=== PATIENT | male | born 1960 | race Caucasian/White ===

== ENCOUNTER 2016-07-13 07:28 | Inpatient (IN) ==
[~2016-07-13 07:28] MED LIST: DIAZEPAM 5 MG TABLET PO ONE; MAGNESIUM SULF RIDER 2 GM in PREMIX 1 EACH IV PRN; POTASSIUM CHLORIDE RIDER 10 MEQ in PREMIX 1 EACH IV PRN; diphenhydrAMINE CAP 25 MG CAPSULE PO ONE
[2016-07-13 08:55] LABS: Basophils % 0.1 % (0.0-0.8); Eosinophils % 0.1 % (0.00-10.9); Hematocrit 28.3 VOL% (42.0-52.0); Hemoglobin 8.2 GM/DL (14.0-18.0); Immature Granulocytes Absolute 1.33 #; Lymphocytes # 1.5 10*3/uL (1.4-4.0); Lymphocytes % 8.9 % (21.2-54.2); Mean Corpuscular Hemoglobin 24 PG (27-34); Mean Corpuscular Volume 82.5 FL (87-102); Mean Platelet Volume 10.1 FL (9.6-12.0); Monocytes # 1.7 10*3/uL (0.11-0.8); Monocytes % 9.9 % (1.7-12.7); NRBC # 0.16 10*3/uL; Neutrophils # 12.2 10*3/uL (1.4-7.4); Platelet Count 302 T/CUMM (130-400); Red Blood Count 3.43 MC/CUMM (3.8-5.5); Red Cell Distribution Width 17.3 % (9.3-17.3); White Blood Count 16.7 T/CUMM (4-12)
[2016-07-13] MEDS ORDERED: diphenhydrAMINE CAP 25 MG CAPSULE ONE (09:12)
[2016-07-13] MEDS ORDERED: DIAZEPAM 5 MG TABLET ONE (09:12)
[2016-07-13] MEDS ORDERED: ASPIRIN 325 MG TABLET ONE (09:12)
[2016-07-13 09:14] LABS: Band Neutrophils 3 % (0-10); Elliptocytes Few; Hypochromasia 1+; Lymphocytes 11 % (20-55); Microcytosis 1+; Platelet Estimate Adequate; Segmented Neutrophils 81 % (50-85); Total Cells Counted 100
[2016-07-13] MEDS: SODIUM CHLORIDE 0.45% 1,000 ML IV SCH ×3 (09:14→22:39)
--- NOTE | 2016-07-13 09:18 | XRay Report ---
Portable chest. Indication: Dyspnea. Shortness of breath. Comparison: October 10, 2015. The heart is enlarged. The pulmonary vasculature is normal. There is no consolidation, pneumothorax, or pleural effusion. Prominent degenerative changes are seen at each shoulder. Degenerative changes are also noted within the spinal column. Impression: Stable cardiomegaly. No acute abnormality. PROCEDURE INTERPRETED AT [facility] DEPARTMENT OF RADIOLOGY Final Report Signed by: Dr. Gabbie Gallego
[2016-07-13 09:22] LABS: Calcium 8.5 MG/DL (8.5-10.1); Magnesium 2.4 MG/DL (1.8-2.4); Osmolality,Calculated 295.3 MOS/KG (273-304); Potassium 3.6 MMOL/L (3.5-5.1)
--- NOTE | 2016-07-13 09:41 | EKG Report ---
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
[2016-07-13] MEDS ORDERED: NITROGLYCERIN SL 0.4 MG TABLET SL PRN (09:46)
--- NOTE | 2016-07-13 09:51 | Event Note ---
Mr. Mcdonald came today with progressive dyspnea. He was unable to afford outpatient nuclear stress test due to lack of insurance he has known coronary artery disease with previous PCI to LAD. He states exactly like he felt before he had his last PCI. I recommended further workup as an outpatient but he felt that it was not cost effective for him. I recommended based on these findings that we proceed with left heart catheterization selective coronary angiography and possible percutaneous coronary mention. The patient presents for further evaluation the Sas Administrator labs were drawn here his hemoglobin is 8.2 with microcytic indices. He has a history of erosive gastritis and gastric antral ulcers. I recommend that this microcytic hypochromic anemia be addressed before we proceed with any possible left heart catheterization. If we find disease would require dual antiplatelet therapy. We must know the source of his anemia and the risk of possible PCI before proceeding. Dr. Fan has previously performed upper endoscopy on him I think the patient did not follow- up for colonoscopy. I discussed with Dr. Fan and he will see in the hospital. I will admit to regular bed and consult GI. The patient is n.p.o. anticipate EGD today. Please see my H&P from last office visit. The patient has rheumatoid arthritis previously diagnosed and takes quite a few steroids. He also takes some intermittent nonsteroidals.
--- NOTE | 2016-07-13 12:41 | Gastrointestinal Consult Note ---
<Maryann Cummings - Last Filed: 07/13/16 12:34> Assessment and Plan (1) Anemia Status: Acute Assessment and plan: 07/13-Presentation of SOB, weakness x several weeks with prior hx of anemia/ transfusion and hx of PUD in past. Last EGD with antral gastric ulcers, erosive esophagitis. Hgb 8.2 without overt bleeding. Proceed with EGD today to further evaluate. Plan and addendum to follow by Dr Fan. Current Visit: Yes History of Present Illness Chief complaint: Anemia History of present illness: Mr. Mcdonald is a 55 year old male who presented to the hospital today for an outpatient left heart catherization due to ongoing weakness and SOB. Pt states that for the last several weeks he has had progressively worse SOB with and without activity. He also states his energy level is down and he has had increased fatigue. He has a history of cardiac stent placement two years ago and was seen by Dr Chiang. Due to lack of insurance, he could not afford outpatient stress test and was brought in today for a heart cath due to his history of stenting of his LAD. He related his current symptoms to what led up to his stent placement. On arrival today, he was found to have hemoglobin of 8.2. He has a history of PUD and gastritis in the past as well as anemia which he has taken iron supplements for off and on. He has not noted any other GI symptoms including melena, hematochezia, weight loss, nausea, vomiting, or abdominal pain. He does take 4 BC or Goody powders every day and has done this for a long period of time. He has GERD symptoms as well. He was seen in September of last year with anemia and had EGD with erosive esophagitis, gastric antral ulcers and small hiatal hernia. Colonoscopy recomendations were given however pt did not follow back up. He presented with hemoglobin of 6 at that time and was transfused. He has a history of RA and takes steroids for this at times. He is currently not on any anticoagulation. Home Medications Medication Instructions Recorded Confirmed Type Tramadol HCl [Tramadol Tab] 100 mg PO TID 04/28/15 07/13/16 History Carvedilol [Coreg] 12.5 mg PO BID #60 tablet 05/06/15 07/13/16 Rx HYDROcodone/ACETAMIN 10-325 [[place] 1 tablet PO Q4H PRN 06/04/15 07/13/16 History 10-325] Lisinopril 20 mg PO DAILY 06/04/15 07/13/16 History Aspirin EC Tab 81 mg PO DAILY #30 tablet 06/05/15 07/13/16 Rx Nitroglycerin [Nitroglycerin SL 0.4 mg SL Q5M PRN #25 tablet 06/05/15 07/13/16 Rx Tab] Aspirin/Acetaminophen/Caffeine 1 each PO QID PRN 07/13/16 07/13/16 History [Goody's Ex-Str Powder Packet] Allergies Allergy/AdvReac Type Severity Reaction Status Date / Time No Known Allergies Allergy Verified 07/13/16 08:40 Medical,Surgical,& Family Hx - Medical History Cardio: History of: CHF, Hypertension (noncompliant 2 years) Neurology: History of: Migraine (States does not have anymore) No history of: Seizures Endocrine: No history of: Diabetes Mellitus (IDDM), Diabetes Mellitus (NIDDM), Thyroid Disorder Rheumatology: History of;: Rheumatoid Arthritis Respiratory: No history of: COPD Genitourinary: No history of: Kidney Stones Gastrointestinal: History of: GI Problems (omental infarction 2010 requiring right hemicolectomy) Other: History of: Skin Problems (left upper chest lesion) - Surgical History Cardiac Surgeries: Sugical HX of: Cardiac Catheterization (stent x 1) Thoracic Surgeries: Patient denies;: Lobectomy Neurologic Surgeries: Patient denies: Neurologic Surgery HEENT Surgeries: Surgical HX of: Eye Surgery (Glass removed from Rt eye), Tonsilectomy & Adenoidectomy Abdominal Surgeries: Surgical HX of: Abdominal Surgery (right hemicolectomy), Appendectomy, Cholecystectomy, Colonoscopy Orthopedic Surgeries: Surgical HX of;: Orthopedic Surgery (rotator cuff bilat) - Family History Family History: Reports;: Family Cancer (father pancreatic), Family Stroke ( grandmother) - Social History Smoking Status: Former smoker Frequency of Alcohol Use: None Type of Drug Use: None 12 point system: reviewed and no additional remarkable complaints except as stated - Constitutional Constitutional: Present: as per HPI, fatigue, weakness - EENT Eyes: Present: as per HPI Ears: Present: as per HPI Nose, mouth and throat: Present: as per HPI - Cardiovascular Cardiovascular: Present: as per HPI - Respiratory Respiratory: Present: as per HPI, dyspnea - Gastrointestinal Gastrointestinal: Present: as per HPI - Genitourinary Genitourinary: Present: as per HPI - Musculoskeletal Musculoskeletal: Present: as per HPI - Neurological Neurological: Present: as per HPI - Psychiatric Psychiatric: Present: as per HPI - Endocrine Endocrine: Present: as per HPI - Hematologic/Lymphatic Hematologic/Lymphatic: Present: as per HPI Exam - Constitutional Vitals: Period Temp Pulse Resp BP Sys/French Pulse Ox Last 24 Hr 97.4 F 72-85 16-17 107-180/87-88 95-99 General appearance: no acute distress, over weight - Head Head exam: Present: normal inspection, normocephalic - Eye Eye exam: Present: other (lids and conjunctiva unremarkable). Absent: scleral icterus - ENT ENT exam: Present: normal exam, normal oropharynx - Neck Neck exam: Present: normal inspection - Respiratory Respiratory exam: Present: clear to auscultation bilaterally. Absent: rales, rhonchi, wheezes - Cardiovascular Cardiovascular exam: Present: regular rate and rhythm. Absent: diastolic murmur , JVD, systolic murmur - GI/Abdominal GI/Abdominal exam: Present: normal bowel sounds, soft. Absent: ascites, distended, mass, organomegaly, tenderness - Extremities Exam Extremities exam: Present: normal inspection, full ROM - Back Exam Back exam: Present: normal inspection - Neurological Exam Neurological exam: Present: alert, oriented X3 - Psychiatric Psychiatric exam: Present: normal affect, normal mood - Skin Skin exam: Present: normal color, warm, dry Results - Labs CBC & BMP: 07/13/16 08:48 07/13/16 08:48 Lab Results: I have reviewed the past 24 hour labs <Elie Fan - Last Filed: 07/13/16 13:23> History of Present Illness History of present illness: Mr. Mcdonald is a 55 year old male Exam - Constitutional Vitals: Period Temp Pulse Resp BP Sys/French Pulse Ox Last 24 Hr 97.4 F 72- 16- 107-180/79-88 95-99 Results - Labs CBC & BMP: 07/13/16 08:48 07/13/16 08:48
[2016-07-13] MEDS ORDERED: PROPOFOL 200 MG/20 ML VIAL IV ONE (13:15)
[2016-07-13] MEDS ORDERED: LIDOCAINE 2% 5 ML VIAL ONE (13:15)
--- NOTE | 2016-07-13 13:34 | Operative Note ---
Date of procedure: 07/13/16 Pre-op diagnosis: Symptomatic anemia, history of gastric ulcers Procedure: Procedure: Esophagogastroduodenoscopy Brief clinical abstract: Patient is a 55-year-old male with history of gastric ulcers and EGD in 10/12 felt to be related to aspirin/nonsteroidal use. He is admitted today with symptomatic anemia with hemoglobin 8.2. He has noted no gross GI bleeding. He continues to use Goody powders daily for arthritic pain. His weight is stable. He denies abdominal pain or nausea. Indication for procedure: Symptomatic anemia, history of gastric ulcers Endoscopic findings:[After informed consent was obtained, the patient was placed in the left lateral decubitus position. The gastroscope was inserted in the upper esophagus under direct vision with no resistance encountered. Esophageal mucosa appeared normal with squamocolumnar junction sharply demarcated above a small hiatal hernia. The endoscope was advanced in the stomach which was carefully examined including retroflexed view of the cardia and fundus with no abnormality seen. The pyloric channel was patent but with a keyhole deformity probably related to previous ulcer disease. Just beyond the pylorus anteriorly in the bulb there was a fairly deep approximately 1.5 cm diameter white based ulcer noted. No visible vessel was associated with this. A photo was taken as shown below. Remainder of the duodenal bulb as well as second and third portion of the duodenum appeared normal. The endoscope was withdrawn and patient appeared to tolerate the procedure well. Impression: #1 small hiatal hernia #2 duodenal bulb ulcer-appearance would suggest low risk of active bleeding Recommendations: Agree with plan for transfusion 2 units packed red blood cells today given symptomatic anemia. Patient needs to discontinue aspirin/ nonsteroidal use. Continue PPI therapy for now. Check stool antigen for H. pylori and treat if positive. Would also plan colonoscopy while he is here as he says it has been over 10 years since his last exam. Anesthesia: MAC Surgeon / Physician: Elie Fan Estimated blood loss: none Specimens: none sent Condition: stable Disposition: post procedure unit Results - Labs CBC & BMP: 07/13/16 08:48 07/13/16 08:48 Discharge Plan - Discharge Medications No Action Tramadol HCl [Tramadol Tab] 100 mg PO TID Carvedilol [Coreg] 12.5 mg PO BID #60 tablet HYDROcodone/ACETAMIN 10-325 [[place] 10-325] 1 tablet PO Q4H PRN PRN Reason: Pain Lisinopril 20 mg PO DAILY Aspirin EC Tab 81 mg PO DAILY #30 tablet Nitroglycerin [Nitroglycerin SL Tab] 0.4 mg SL Q5M PRN #25 tablet PRN Reason: Chest Pain Aspirin/Acetaminophen/Caffeine [Vance's Ex-Str Powder Packet] 1 each PO QID PRN PRN Reason: Pain - Follow Up or Referral - Forms/Instructions
--- NOTE | 2016-07-13 13:35 | Anesthesia ---
Anesthesia Post OP - Post Ansesthetic Evaluation Patient seen in post op: Yes Resp: within normal limits CV: within normal limits Mental: within normal limits Temp: within normal limits [id number]: within normal limits Nausea and Vomiting: within normal limits Pain: within normal limits
[2016-07-13] MEDS ORDERED: SODIUM CHLORIDE 0.9% 250 ML IV PRN (14:36)
[2016-07-13] MEDS: traMADol 50 MG TABLET PO SCH ×2 (17:16→20:57)
[2016-07-13] MEDS: FERROUS SULFATE 325 MG TABLET PO SCH ×2 (17:16→20:58)
[2016-07-13] MEDS ORDERED: POLYETHYLENE GLYCOL POWDER 255 GM BOTTLE PO ONE (18:00)
[2016-07-13] MEDS: CARVEDILOL 12.5 MG TABLET PO SCH (20:57)
[2016-07-13] MEDS: PANTOPRAZOLE 40 MG TABLET PO SCH (20:58)
[2016-07-14 05:06] LABS: Basophils % 0.1 % (0.0-0.8); Eosinophils % 0.4 % (0.00-10.9); Hematocrit 31.9 VOL% (42.0-52.0); Hemoglobin 9.6 GM/DL (14.0-18.0); Immature Granulocytes % 8.2 %; Lymphocytes # 1.5 10*3/uL (1.4-4.0); Lymphocytes % 17.4 % (21.2-54.2); Mean Corpuscular HGB Conc 30.1 GM/DL (32-36); Mean Corpuscular Hemoglobin 25 PG (27-34); Mean Corpuscular Volume 81.4 FL (87-102); Mean Platelet Volume 10.9 FL (9.6-12.0); Monocytes # 0.9 10*3/uL (0.11-0.8); Monocytes % 10.8 % (1.7-12.7); NRBC # 0.11 10*3/uL; Neutrophils # 5.4 10*3/uL (1.4-7.4); Neutrophils % 63.1 % (38.7-73.9); Platelet Count 284 T/CUMM (130-400); Red Blood Count 3.92 MC/CUMM (3.8-5.5); Red Cell Distribution Width 16.9 % (9.3-17.3); White Blood Count 8.5 T/CUMM (4-12)
[2016-07-14 05:33] LABS: Band Neutrophils 2 % (0-10); Hypochromasia 2+; Lymphocytes 16 % (20-55); Microcytosis 1+; Nucleated Red Blood Cells 1 (0-5); Ovalocytes Few; Segmented Neutrophils 75 % (50-85); Total Cells Counted 100
[2016-07-14 05:34] LABS: Platelet Estimate Adequate; Tear Drop Cells Slight
[2016-07-14] MEDS: SODIUM CHLORIDE 0.45% 1,000 ML IV SCH ×3 (05:54→18:17)
[2016-07-14] MEDS ORDERED: MAGNESIUM CITRATE 300 ML BOTTLE PO ONE (06:00)
[2016-07-14] MEDS: traMADol 50 MG TABLET PO SCH ×3 (08:36→20:54)
[2016-07-14] MEDS: FERROUS SULFATE 325 MG TABLET PO SCH ×3 (08:36→20:54)
[2016-07-14] MEDS: PANTOPRAZOLE 40 MG TABLET PO SCH ×2 (08:36→21:20)
[2016-07-14] MEDS: ASPIRIN EC 81 MG TABLET PO SCH (08:36)
[2016-07-14] MEDS: CARVEDILOL 12.5 MG TABLET PO SCH ×2 (09:06→20:55)
[2016-07-14] MEDS: LISINOPRIL 10 MG TABLET PO SCH (09:06)
[2016-07-14] MEDS ORDERED: POLYETHYLENE GLYCOL POWDER 255 GM BOTTLE PO ONE (12:00)
--- NOTE | 2016-07-14 13:07 | Gastrointestinal Progress Note ---
<Maryann Cummings - Last Filed: 07/14/16 13:05> Assessment and Plan (1) Anemia Status: Acute Assessment and plan: 07/14-EGD findings noted. Hgb 9.6. NO overt bleeding. Colonoscopy reschedule to tomorrow due to poor prep. Plan and addendum to follow by Dr Fan. 07/13-Presentation of SOB, weakness x several weeks with prior hx of anemia/ transfusion and hx of PUD in past. Last EGD with antral gastric ulcers, erosive esophagitis. Hgb 8.2 without overt bleeding. Proceed with EGD today to further evaluate. Plan and addendum to follow by Dr Fan. Current Visit: Yes Gastroenterology - PN: Subj Interval history: CC: Anemia Pt is seen, awake, alert, was to have colonscope today however his prep was not adequate. Pt decided this morning he did not want to proceed due to was tired of clear liquids and wanted to go home. Discussed with pt that we could do this as outpatient but he would have to restart the prep again at home and be on clear liquids for this then. After much discussion, pt decided he will go ahead and continue the prep today and proceed with colonoscopy on tomorrow. Hemoglobin stable at 9.6 today without overt bleeding. Abdomen is soft, nontender. ROS: Denies SOB or chest pain Exam (Progress Note) - Constitutional Vitals: Period Temp Pulse Resp BP Sys/French Pulse Ox Last 24 Hr 97.7 F-98.9 F 66-88 16-20 125-179/68-106 91-99 - Other Additional findings: General appearance: no acute distress, over weight - Head Head exam: Present: normal inspection, normocephalic - Eye Eye exam: Present: other (lids and conjunctiva unremarkable). Absent: scleral icterus - ENT ENT exam: Present: normal exam, normal oropharynx - Neck Neck exam: Present: normal inspection - Respiratory Respiratory exam: Present: clear to auscultation bilaterally. Absent: rales, rhonchi, wheezes - Cardiovascular Cardiovascular exam: Present: regular rate and rhythm. Absent: diastolic murmur , JVD, systolic murmur - GI/Abdominal GI/Abdominal exam: Present: normal bowel sounds, soft. Absent: ascites, distended, mass, organomegaly, tenderness - Extremities Exam Extremities exam: Present: normal inspection, full ROM - Back Exam Back exam: Present: normal inspection - Neurological Exam Neurological exam: Present: alert, oriented X3 - Psychiatric Psychiatric exam: Present: normal affect, normal mood - Skin Skin exam: Present: normal color, warm, dry Results - Labs CBC & BMP: 07/14/16 03:41 07/13/16 08:48 Lab Results: I have reviewed the past 24 hour labs <Elie Fan - Last Filed: 07/14/16 13:44> Exam (Progress Note) - Constitutional Vitals: Period Temp Pulse Resp BP Sys/French Pulse Ox Last 24 Hr 97.7 F-98.9 F 66-88 16-20 125-179/79-106 91-99 Results - Labs CBC & BMP: 07/14/16 03:41 07/13/16 08:48
--- NOTE | 2016-07-14 18:12 | Cardiology Progress Note ---
Lane Lacy Vanessa, RN, am scribing for, and in the presence of, Shan Shields MD 18:12. Assessment and Plan - Time spent with patient Time spent with patient: Less than 30 minutes (1) Anemia Status: Acute Assessment and plan: 1. 55-year-old with uncontrolled hypertension, known CAD status post coronary stent about a year ago followed by Dr. Hermosillo presented with microcytic anemia in 6 months dyspnea on exertion and fatigue 2. GI workup in progress; colonoscopy tomorrow 3. No gross bleeding 4. Decrease IV fluids to one half normal saline at 75 mL per hour given his hypertension Current Visit: Yes (2) Shortness of breath Status: Acute Current Visit: Yes (3) Coronary artery disease Status: Chronic Current Visit: No (4) Uncontrolled hypertension Status: Resolved Current Visit: No Cardiology - PN: Subj Interval history: Patient of Dr. Chiang's admitted yesterday for outpatient left cardiac cath due to increasing shortness of breath over a few weeks and weakness. Known coronary disease with previous PCI to LAD, and he stated his current discomforts were exactly the same to what he felt prior to last PCI. 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 With history of erosive gastritis and gastric ulcers, left heart cath was cancelled for further GI evaluation to address his anemia and find source prior to possible PCI and use of DAPT. EGD per Dr. Fan yesterday afternoon and duodenal ulcer found with no bleeding. He was transfused with 2 units PRBC's afterward, and today's H/H is 9.6 & 31.9. Was scheduled for colonoscopy today but has been rescheduled for tomorrow due to bowel prep not being clear yet. Afebrile. Hypertensive with SBP 150-180 mmHg , heart rate 70's and regular. No chest pain or shortness of breath at rest. Unsure of dyspnea on exertion as he has not ambulated a long distance. Only complaint is that he is "really tired." Exam (Progress Note) - Constitutional Vitals: Period Temp Pulse Resp BP Sys/French Pulse Ox Last 24 Hr 97.7 F-98.9 F 66-84 18-20 138-179/79-106 91-99 General appearance: no acute distress, over weight - Head Head exam: Absent: abrasion, contusion, hematoma - Eye Eye exam: Absent: periorbital swelling Pupils: Present: MICHAEL. Absent: dilated, fixed - Neck Neck exam: Absent: tenderness - Respiratory Respiratory exam: Present: clear to auscultation bilaterally. Absent: rales, rhonchi, stridor, wheezes - Cardiovascular Cardiovascular exam: Present: regular rate and rhythm. Absent: bradycardia, JVD , systolic murmur, tachycardia - GI/Abdominal GI/Abdominal exam: Present: normal bowel sounds, soft. Absent: ascites, distended, firm, tenderness - Extremities Exam Extremities exam: Present: normal capillary refill, full ROM. Absent: calf tenderness, edema - Back Exam Back exam: Present: normal inspection - Neurological Exam Neurological exam: Present: alert, oriented X3 - Psychiatric Psychiatric exam: Present: normal affect, normal mood - Skin Skin exam: Present: warm, dry, intact. Absent: abrasion, cyanosis, diaphoretic Result/EKG - Labs CBC & BMP: 07/14/16 03:41 07/13/16 08:48 Lab Results: I have reviewed the past 24 hour labs Labs: Laboratory Results - last 24 hr 07/13/16 07/14/16 Unknown 03:41 WBC 8.5 D RBC 3.92 Hgb 9.6 L Hct 31.9 L MCV 81.4 L MCH 25 L MCHC 30.1 L RDW 16.9 Plt Count 284 MPV 10.9 Neut % (Auto) 63.1 Lymph % (Auto) 17.4 L Powell % (Auto) 10.8 Eos % (Auto) 0.4 Baso % (Auto) 0.1 Neut # (Auto) 5.4 Lymph # (Auto) 1.5 Powell # (Auto) 0.9 H Eos # (Auto) 0.0 Baso # (Auto) 0.0 Total Counted 100 Immature Gran % 8.2 Nucleated RBC % 1.3 Immature Gran # 0.70 Segmented Neutrophils 75 Band Neutrophils 2 Lymphocytes 16 L Monocytes 7 Nucleated RBCs 1 Nucleated RBCs # 0.11 Platelet Estimate Adequate Hypochromasia 2+ Microcytosis 1+ Tear Drop Cells Slight Ovalocytes Few Blood Type A POSITIVE Antibody Screen Negative Crossmatch See Detail - EKG EKG results: interpreted by me EKG shows: sinus rhythm Cornelius Layc Randall Scott, MD, personally performed the services described in this documentation, ascribed by Tori Sherman RN in my presence, and it is both accurate and complete .
[2016-07-15] MEDS: FERROUS SULFATE 325 MG TABLET PO SCH ×3 (08:19→20:32)
[2016-07-15] MEDS: PANTOPRAZOLE 40 MG TABLET PO SCH ×2 (08:19→20:32)
[2016-07-15] MEDS: SODIUM CHLORIDE 0.45% 1,000 ML IV SCH ×2 (08:19→21:05)
[2016-07-15] MEDS: ASPIRIN EC 81 MG TABLET PO SCH (08:19)
[2016-07-15] MEDS: traMADol 50 MG TABLET PO SCH ×3 (08:20→20:33)
[2016-07-15] MEDS: LISINOPRIL 10 MG TABLET PO SCH (08:46)
[2016-07-15] MEDS: CARVEDILOL 12.5 MG TABLET PO SCH ×2 (08:47→20:31)
[2016-07-15] MEDS ORDERED: LIDOCAINE 2% 5 ML VIAL ONE (12:15)
[2016-07-15] MEDS ORDERED: PROPOFOL 200 MG/20 ML VIAL IV ONE (12:15)
--- NOTE | 2016-07-15 13:01 | History and Physical Update ---
History and Physical Update - History and Physical H&P was reviewed, the patient examined and there: are no changes in the patients condition since last H&P was completed. - Physical Exam Mental Status: alert and oriented Heart: regular rate and rhythm Lung: clear to auscultation Abdomen: within normal limits Vitals: within normal limits
--- NOTE | 2016-07-15 13:04 | Anesthesia ---
Anesthesia Post OP - Post Ansesthetic Evaluation Patient seen in post op: Yes Resp: within normal limits CV: within normal limits Mental: within normal limits Temp: within normal limits [id number]: within normal limits Nausea and Vomiting: within normal limits Pain: within normal limits
--- NOTE | 2016-07-15 13:08 | Operative Note ---
Date of procedure: 07/15/16 Pre-op diagnosis: Blood in stool, colon cancer screening Procedure: Procedure note: Colonoscopy with snare polypectomy and biopsy of colon polyps Physician: Dr. Valdemar Fan Brief clinical abstract: Patient is a 55-year-old male recently noted to have symptomatic anemia with occult blood in his stool. He had a duodenal bulb ulcer noted at upper endoscopy earlier this week. He has not had colonoscopy in over 10 years. He denies any colonic symptoms. Endoscopic findings: After informed consent was obtained, the patient was placed in the left lateral decubitus position. Digital rectal exam was performed with no palpable abnormalities felt. Pediatric videocolonoscope was inserted into the rectum and advanced to the cecum without difficulty. Retroflex view within the cecum was performed back to the level of the hepatic flexure. The endoscope was advanced back to the cecum and on withdrawal colonic mucosa was carefully examined. Bowel prep was of good quality. Withdrawal time was over 6 minutes duration. On withdrawal, near the mid transverse colon and extending into the descending colon numerous polyps were noted estimated to be at least 50 in number. These range in size from 3 mm to 8 mm diameter estimated. 7 or 8 of the larger polyps were removed with snare using coagulation current. Multiple biopsies were also obtained of other polyps using cold biopsy forceps. On withdrawal a few diverticuli were noted in the left colon. The endoscope was withdrawn in the rectum with retroflex view showing small internal hemorrhoids. The endoscope was removed and he appeared to tolerate the procedure well. Impression: #1 extensive colonic polyposis #2 mild diverticulosis Plan: Follow-up pathology from above to determine next step in management. Anesthesia: MAC Surgeon / Physician: Elie Fan Estimated blood loss: minimal Specimens: other (colon polyps) Condition: stable Disposition: post procedure unit Results - Labs CBC & BMP: 07/14/16 03:41 07/13/16 08:48 Discharge Plan - Discharge Medications No Action Tramadol HCl [Tramadol Tab] 100 mg PO TID Carvedilol [Coreg] 12.5 mg PO BID #60 tablet HYDROcodone/ACETAMIN 10-325 [[place] 10-325] 1 tablet PO Q4H PRN PRN Reason: Pain Lisinopril 20 mg PO DAILY Aspirin EC Tab 81 mg PO DAILY #30 tablet Nitroglycerin [Nitroglycerin SL Tab] 0.4 mg SL Q5M PRN #25 tablet PRN Reason: Chest Pain Aspirin/Acetaminophen/Caffeine [Vance's Ex-Str Powder Packet] 1 each PO QID PRN PRN Reason: Pain - Follow Up or Referral - Forms/Instructions
--- NOTE | 2016-07-15 19:26 | Discharge Summary ---
Hospital Course - Hospital Course Hospital Course: Mr. Mcdonald was admitted for 6 months of fatigue and dyspnea on exertion with microcytic anemia. He had EGD initially by Dr. Fan which showed significant duodenal ulcer with clean base and no active bleeding. Colonoscopy was performed today which showed many colonic polyps. It appears that H. pylori antibody biopsy and colonic reports are pending at this time. The patient was told to go home this evening, and is very anxious to do so. A minimal difficulty is anxious for discharge. Diagnosis - Discharge Diagnosis (1) Anemia Status: Acute (2) Shortness of breath Status: Acute (3) Coronary artery disease Status: Chronic (4) Uncontrolled hypertension Status: Resolved Specialty Discharge - Follow Up or Referrals Follow up with: Elie Fan MD [Physician] - 2 Weeks Kimberly Chiang DO [Physician] - 1 Month Discharge Plan - Discharge Medications No Action Tramadol HCl [Tramadol Tab] 100 mg PO TID Carvedilol [Coreg] 12.5 mg PO BID #60 tablet HYDROcodone/ACETAMIN 10-325 [[place] 10-325] 1 tablet PO Q4H PRN PRN Reason: Pain Lisinopril 20 mg PO DAILY Aspirin EC Tab 81 mg PO DAILY #30 tablet Nitroglycerin [Nitroglycerin SL Tab] 0.4 mg SL Q5M PRN #25 tablet PRN Reason: Chest Pain Aspirin/Acetaminophen/Caffeine [Goody's Ex-Str Powder Packet] 1 each PO QID PRN PRN Reason: Pain - Follow Up or Referral - Forms/Instructions Exam - Constitutional Vitals: Period Temp Pulse Resp BP Sys/French Pulse Ox Last 24 Hr 98.2 F-98.7 F 65-94 14-20 112-179/62-95 95-100 General appearance: no acute distress, over weight - Head Head exam: Present: normal inspection, normocephalic, atraumatic - Neck Neck exam: Present: normal inspection - Respiratory Respiratory exam: Present: clear to auscultation bilaterally. Absent: wheezes - Cardiovascular Cardiovascular exam: Present: regular rate and rhythm. Absent: diastolic murmur , rubs - GI/Abdominal GI/Abdominal exam: Present: soft. Absent: tenderness - Extremities Exam Extremities exam: Absent: edema Discharge Results Procedures and tests throughout hospitalization: Pending Orders 07/13/16 01:08 Helicobacter pylori Ag Feces Routine DS: Provider Date of admission: 07/13/16 09:45 Primary care physician: . No PCP Attending physician on admission: Kimberly Chiang DO Consults: 07/13/16 09:46 Consult to Physician [CONS] Routine Comment: anemia as we discussed Consulting Provider: Elie Fan Consulting Provider Notified: Yes When should Consulting Provider be notified: Now Person Notified: connie james Date Notified: 07/13/16 Time Notified: 11:17 Discharging clinician: Shan Cárdenas
[2016-07-15 23:26] VITALS: BP 147/92
--- NOTE | 2016-07-16 10:49 | Pathology Report from [facility] ---
ACCESSION # : [id number] PATIENT NAME : Jasson Mcdonald ORDERING DR : SANDRA FERREIRA MD CLINICAL HX: Positive stools POST-OP DX: Colon polyps SPECIMEN INFO: Colon polyps transverse GROSS DESCRIPTION: The specimen is received in formalin labeled with the patient 's name Jasson Mcdonald consists of multiple fragments of red gomes polypoid tissue measuring 1 x 0.6 cm. Submitted in one cassette. DIAGNOSIS FOR JASSON MCDONALD: COLON POLYPS TRANSVERSE: Tubular adenomas. SERVICE DATE: 07/16/2016 REPORT DATE: 07/16/2016 PATHOLOGIST: Triny Medley M.D. [facility]ITAL[facility]rach[facility]
== END 2016-07-15 21:25 | disposition home or self-care (01) | DRG 384 ==
LOC: N.CL 07:28 → N.3E 09:45
PROVIDERS: ADMIT Internal Medicine Cardiovascular Disease; ATTEND Internal Medicine Cardiovascular Disease

== ENCOUNTER 2016-12-28 09:30 | Inpatient (IN) ==
[~2016-12-28 09:30] MED LIST changes: +ACETAMINOPHEN 325 MG TABLET PO PRN; -DIAZEPAM 5 MG TABLET PO ONE; -MAGNESIUM SULF RIDER 2 GM in PREMIX 1 EACH IV PRN; -POTASSIUM CHLORIDE RIDER 10 MEQ in PREMIX 1 EACH IV PRN; +ZALEPLON 5 MG CAPSULE PO PRN; -diphenhydrAMINE CAP 25 MG CAPSULE PO ONE; +diphenhydrAMINE CAP 25 MG CAPSULE PO PRN
[2016-12-28 10:49] LABS: Basophils % 0.1 % (0.0-0.8); Hemoglobin 11.7 GM/DL (14.0-18.0); Immature Granulocytes % 4.7 %; Immature Granulocytes Absolute 0.72 #; Lymphocytes # 0.7 10*3/uL (1.4-4.0); Lymphocytes % 4.3 % (21.2-54.2); Mean Corpuscular HGB Conc 32.5 GM/DL (32-36); Mean Corpuscular Hemoglobin 29 PG (27-34); Monocytes # 1.1 10*3/uL (0.11-0.8); Monocytes % 6.9 % (1.7-12.7); NRBC # 0.67 10*3/uL; Platelet Count 366 T/CUMM (130-400); White Blood Count 15.5 T/CUMM (4-12)
[2016-12-28 11:22] LABS: Band Neutrophils 1 % (0-10); Hypochromasia 2+; Lymphocytes 10 % (20-55); Microcytosis 1+; Nucleated Red Blood Cells 2 (0-5); Platelet Estimate Adequate; Segmented Neutrophils 82 % (50-85); Target Cells Slight; Total Cells Counted 100
[2016-12-28 11:36] LABS: Albumin 3.4 G/DL (3.4-5.0); Bilirubin,Total 0.7 MG/DL (0.2-1.0); Calcium 8.8 MG/DL (8.5-10.1); Magnesium 2.5 MG/DL (1.8-2.4); Osmolality,Calculated 288.4 MOS/KG (273-304); Potassium 4.2 MMOL/L (3.5-5.1); Thyroid Stimulating Hormone 0.239 uIU/ml (0.358-3.74); Total Protein 6.2 G/DL (6.4-8.3)
[2016-12-28] MEDS: ENOXAPARIN 40 MG/0.4 ML SYRINGE SUBCUT SCH (12:09)
[2016-12-28] MEDS ORDERED: NITROGLYCERIN SL 0.4 MG TABLET SL PRN (12:11)
--- NOTE | 2016-12-28 12:15 | XRay Report ---
2 view chest. Indication: Shortness of breath. Comparison: July 13, 2016. The heart is enlarged. The pulmonary vasculature is normal. The right lung demonstrates mild infiltrate or atelectasis at the base medially. There is blunting of the left costophrenic angle which is new, and probably represents a small amount of pleural effusion. Previous vertebral at multiple levels. Impression: Mild infiltrate versus atelectasis at the right lung base. Small left pleural effusion. Follow-up recommended. PROCEDURE INTERPRETED AT [facility] DEPARTMENT OF RADIOLOGY Final Report Signed by: Dr. Gabbie Gallego
[2016-12-28] MEDS ORDERED: CARVEDILOL 12.5 MG TABLET PO SCH (12:30)
[2016-12-28] MEDS ORDERED: ASPIRIN EC 325 MG TABLET PO SCH (12:35)
[2016-12-28] MEDS ORDERED: ENOXAPARIN 60 MG/0.6 ML SYRINGE SUBCUT ONE (13:00)
[2016-12-28 13:34] LABS: Troponin I Only 0.208 NG/ML (0.00-0.045)
--- NOTE | 2016-12-28 13:35 | EKG Report ---
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
--- NOTE | 2016-12-28 13:39 | Ultrasound Report ---
US venous doppler LE BI Indication: Lower extremity swelling and pain. Comparison: None. Technique: Using a transcutaneous probe, grayscale, spectral Doppler, and color Doppler images of the bilateral lower extremity venous structures were captured and stored. Grayscale images prior to and following compression were obtained. Interrogated venous structures include the bilateral common femoral vein, superficial femoral vein (proximal, mid, and distal), and popliteal vein. Findings: There is no evidence of thrombus within the interrogated venous structures. the interrogated venous segments demonstrate presence of both color flow and spectral flow. Impression: 1. No evidence of venous thrombosis. 12/28/2016 1:36 PM PROCEDURE INTERPRETED AT [facility] DEPARTMENT OF RADIOLOGY Final Report Signed by: Dr. Jesus Mata
[2016-12-28] MEDS ORDERED: DIAZEPAM 5 MG TABLET PO ONE (14:00)
[2016-12-28] MEDS ORDERED: MAGNESIUM SULF RIDER 2 GM in PREMIX 1 EACH IV PRN (14:00)
[2016-12-28] MEDS ORDERED: diphenhydrAMINE CAP 25 MG CAPSULE PO ONE (14:00)
[2016-12-28 14:16] LABS: INR 1.1; PT Patient Result 11.3 SECS
--- NOTE | 2016-12-28 14:16 | Cardiology History & Physical ---
Assessment and Plan - Time spent with patient Time spent with patient: Greater than 30 minutes (1) Dyslipidemia Status: Chronic Assessment and plan: SEE PLAN OF CARE LISTED BELOW Current Visit: Yes (2) Suspected sleep apnea Status: Chronic Assessment and plan: SEE PLAN OF CARE LISTED BELOW Current Visit: Yes (3) Abnormal chest x-ray Status: Acute Assessment and plan: SEE PLAN OF CARE LISTED BELOW Current Visit: Yes (4) Edema Status: Acute Assessment and plan: SEE PLAN OF CARE LISTED BELOW Current Visit: Yes (5) Congestive heart failure Status: Acute Assessment and plan: SEE PLAN OF CARE LISTED BELOW Current Visit: No Qualifiers: Congestive heart failure type: unspecified congestive heart failure type Congestive heart failure chronicity: acute Qualified Code(s): I50.9 - Heart failure, unspecified (6) Elevated troponin Status: Acute Assessment and plan: SEE PLAN OF CARE LISTED BELOW Current Visit: No (7) Coronary artery disease Status: Chronic Assessment and plan: SEE PLAN OF CARE LISTED BELOW Current Visit: No Qualifiers: Coronary Disease-Associated Artery/Lesion type: mohegan artery [place] vs. 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 Mcdonald, 56WM, has risk factors significant for: Known coronary artery disease (status post PCI to proximal and mid LAD June 04, 2015) hypertension, dyslipidemia and obesity. History of ischemic cardiomyopathy with prior EF noted to be 50%. Patient was a "working" by Dr. Servin at [facility] this morning for worsening shortness of breath. After being seen in clinic, patient was directly admitted for concerns of significant dyspnea on exertion. Patient reports for the past 6 months he has had shortness of breath with exertion. However, over the past 1 week, he has found it difficult to take 3 steps into his home without having a rest due to shortness of breath. He does have occasional tightness associated with the shortness of breath but not usually. Rest relieves the discomfort. States the discomfort is similar to what he had prior to requiring stents in May 2015. He has also noticed mild swelling of his right lower extremity over the past week. When he was last seen in clinic, noted to be in sinus tachycardia with a heart rate of 130s and hypertensive. He has been out of his antihypertensives for approximately 3 weeks. He was directly admitted to our telemetry unit. He has had some orthopnea over the past week and it is mildly better at this time. He believes he can lie flat for any procedure needed. Cardiac biomarkers have just now returned. Troponin is elevated at 0.28, proBNP 1800. Venous ultrasound of right lower extremity negative for DVT. He has received aspirin and therapeutic dosing of Lovenox, beta-blockade, nitrates , diuretics. Patient has now undergone echocardiogram (results pending but suspect decreased EF). Chest x-ray reveals a small infiltrate and pleural effusion, WBC 15K. He is afebrile and denies chills or cough. I have discussed patient's case with Dr. Servin and Dr. Lowe. Patient is agreeable to undergo elective cardiac catheterization this afternoon. ASSESSMENT/PLAN: 1. SOB - multifactorial to include acute CHF, possible CAP, suspected obstructive sleep apnea, cardiomyopathy 2. KNOWN CAD - status post PCI to the proximal and mid LAD May 2015 3. HYPERTENSION - suboptimally controlled at this time. He has been given a beta-coretta. We are holding his MARY ELLEN inhibitor for possibility of cardiac catheterization today 4. DYSLIPIDEMIA -FLP in the morning. Statin this evening 5. EDEMA RLE - venous ultrasound bilateral lower extremity reveals no evidence of DVT 6. ELEVATED TROPONIN -troponin elevated. Continue to cycle cardiac biomarkers. NPO for heart cath this afternoon 7. CARDIOMYOPATHY - history of ischemic cardiomyopathy, EF 50%. Echocardiogram is also pending but suspect his EF may be decreased. 8. POSSIBLE CAP - we will treat with antibiotics accordingly, pulmonary toilet. Home Medications Medication Instructions Recorded Confirmed Type Tramadol HCl [Tramadol Tab] 100 mg PO TID 04/28/15 12/28/16 History Carvedilol [Coreg] 12.5 mg PO BID #60 tablet 05/06/15 12/28/16 Rx HYDROcodone/ACETAMIN 10-325 [[place] 1 tablet PO Q4H PRN 06/04/15 12/28/16 History 10-325] Lisinopril 20 mg PO DAILY 06/04/15 12/28/16 History Nitroglycerin [Nitroglycerin SL 0.4 mg SL Q5M PRN #25 tablet 06/05/15 12/28/16 Rx Tab] Allergies Allergy/AdvReac Type Severity Reaction Status Date / Time No Known Allergies Allergy Verified 07/13/16 08:40 Review of systems: REVIEW OF SYSTEMS: - Constitutional Constitutional: Present: Fatigue. Absent: syncope, anorexia, night sweats - EENT Eyes: Absent: blurry vision, loss of vision, diplopia Ears: Absent: decreased hearing, ear pain, ear discharge - Cardiovascular Cardiovascular: Present: chest tightness with exertion, dyspnea on exertion, edema. Denies palpitations. Absent: chest pain with deep breath, claudication - Respiratory Respiratory: Present: SUMNER, denies cough. Absent: wheezing, hemoptysis, change in phlegm color - Gastrointestinal Gastrointestinal: Denies: constipation. Absent: abdominal pain, hematemesis, hematochezia, melena, change in bowel habits, nausea - Genitourinary Genitourinary: Absent: difficulty urinating, dysuria, urinary hesitancy, flank pain - Musculoskeletal Musculoskeletal: Present: back pain Absent: joint swelling, muscle cramps, muscle weakness - Neurological Neurological: Present: normal gait without frequent falls. Absent: dizziness, hemiparesis - Psychiatric Psychiatric: Absent: anxiety, depression, difficulty concentrating - Endocrine Endocrine: Present: fatigue. Absent: cold intolerance, heat intolerance, polyuria, polyphagia, polydipsia - Hematologic/Lymphatic Hematologic/Lymphatic: Present: easy bruising. Absent: easy bleeding -Integumentary Integumentary: Absent: lesions, rashes, skin breakdown Medical,Surgical,& Family Hx - Medical History Cardio: History of: CHF, CAD, Hypertension (noncompliant 2 years) No history of: AR Neurology: History of: Migraine (States does not have anymore) No history of: Seizures Endocrine: No history of: Diabetes Mellitus (IDDM), Diabetes Mellitus (NIDDM), Thyroid Disorder Rheumatology: History of;: Rheumatoid Arthritis Respiratory: No history of: COPD Genitourinary: No history of: Kidney Stones Gastrointestinal: History of: GERD, GI Problems (omental infarction 2011 requiring right hemicolectomy) Musculoskeletal: History of: Back/Neck Problems Other: History of: Skin Problems (left upper chest lesion) - Surgical History Cardiac Surgeries: Sugical HX of: Cardiac Catheterization (stent x 1) Thoracic Surgeries: Patient denies;: Lobectomy Neurologic Surgeries: Patient denies: Neurologic Surgery HEENT Surgeries: Surgical HX of: Eye Surgery (Glass removed from Rt eye), Tonsilectomy & Adenoidectomy Abdominal Surgeries: Surgical HX of: Abdominal Surgery (right hemicolectomy), Appendectomy, Cholecystectomy, Colonoscopy Orthopedic Surgeries: Surgical HX of;: Orthopedic Surgery (rotator cuff bilat), Spinal Surgery (Kyphoplasty) - Family History Family History: Reports;: Family Cancer (father pancreatic), Family Stroke ( grandmother) - Social History Smoking Status: Former smoker Have you smoked in the last 12 months: No Frequency of Alcohol Use: None Type of Drug Use: None Functional capacity: independent ambulation Cardiology Physical Exam - Constitutional Vitals: Vital Signs Temp Pulse Resp BP Pulse Ox 97.6 F 114 H 20 158/118 96 12/28/16 11:52 12/28/16 11:52 12/28/16 11:52 12/28/16 11:52 12/28/16 11:52 Intake and Output 12/27/16 12/28/16 12/28/16 23:59 07:59 15:59 Other: Weight 86.636 kg Patient Weight 12/28/16 23:59 Weight 86.636 kg Exam: General: [Appears well with no apparent distress.] [Pleasant and cooperative. ] [Appears comfortable.] HEENT: [PERRL, normocephalic, atraumatic. Mucous membranes moist. No jaundice noted. Conjunctiva moist and clear, sclerae anicteric] Neck: Difficult to assess for JVD due to habitus. No thyromegaly or lymphadenopathy noted. No carotid bruit appreciated Cardiac: [Fast rate, regular rhythm. No obvious murmur rub or gallop appreciated. Lungs: [Clear to auscultation without accessory muscle use to assist the respiratory pattern.] Oxygen in use via nasal cannula Abdomen: Soft, bowel sounds normoactive. Nontender and nondistended. No abdominal bruit or thrill noted. No masses noted. Musculoskeletal: No fluid collection. Decreased range of motion is noted. Extremities: No clubbing, cyanosis noted. [Right lower extremity calf area 1+ edema. ] Upper extremity pulses 2+. Lower extremity pulses 2+. Capillary refill less than 3 seconds. Skin: No unusual lesions or rashes. No skin breakdown appreciated. Neuro: Awake, alert and oriented 3. Moves all extremities well without hemiparesis or paralysis. No essential tremor is appreciated. Result/EKG - Labs CBC & BMP: 12/28/16 10:29 12/28/16 10:29 Lab Results: I have reviewed the past 24 hour labs Labs: Laboratory Results - last 24 hr 12/28/16 12/28/16 12/28/16 10:29 10:29 10:29 WBC 15.5 H RBC 4.00 Hgb 11.7 L Hct 36.0 L MCV 90.0 MCH 29 MCHC 32.5 RDW 17.0 Plt Count 366 MPV 11.0 Neut % (Auto) 84.0 H Lymph % (Auto) 4.3 L [place] % (Auto) 6.9 Eos % (Auto) 0.0 Baso % (Auto) 0.1 Neut # (Auto) 13.0 H Lymph # (Auto) 0.7 L [place] # (Auto) 1.1 H Eos # (Auto) 0.0 Baso # (Auto) 0.0 Total Counted 100 Immature Gran % 4.7 Nucleated RBC % 4.3 Immature Gran # 0.72 Segmented Neutrophils 82 Band Neutrophils 1 Lymphocytes 10 L Monocytes 7 Nucleated RBCs 2 Nucleated RBCs # 0.67 Platelet Estimate Adequate Immature Plt Fraction 0.0 Hypochromasia 2+ Microcytosis 1+ Target Cells Slight D-Dimer, Quantitative Sodium 140 Potassium 4.2 Chloride 105 Carbon Dioxide 25 Anion Gap 14.2 BUN 37 H Creatinine 1.30 GFR Calculation 69 BUN/Creatinine Ratio 28.00 H Glucose 113 H Calculated Osmolality 288.4 Calcium 8.8 Magnesium 2.5 H Total Bilirubin 0.70 AST 32 ALT 66 H Alkaline Phosphatase 98 Total Creatine Kinase CK-MB (CK-2) Troponin I B-Natriuretic Peptide 1706 H Total Protein 6.2 L Albumin 3.4 Globulin 2.8 Albumin/Globulin Ratio 1.2 Free T4 TSH 3rd Generation 0.239 L 12/28/16 12/28/16 12/28/16 12:33 12:33 12:34 WBC RBC Hgb Hct MCV MCH MCHC RDW Plt Count MPV Neut % (Auto) Lymph % (Auto) [place] % (Auto) Eos % (Auto) Baso % (Auto) Neut # (Auto) Lymph # (Auto) [place] # (Auto) Eos # (Auto) Baso # (Auto) Total Counted Immature Gran % Nucleated RBC % Immature Gran # Segmented Neutrophils Band Neutrophils Lymphocytes Monocytes Nucleated RBCs Nucleated RBCs # Platelet Estimate Immature Plt Fraction Hypochromasia Microcytosis Target Cells D-Dimer, Quantitative 0.7 Sodium Potassium Chloride Carbon Dioxide Anion Gap BUN Creatinine GFR Calculation BUN/Creatinine Ratio Glucose Calculated Osmolality Calcium Magnesium Total Bilirubin AST ALT Alkaline Phosphatase Total Creatine Kinase 76 CK-MB (CK-2) 2.4 Troponin I 0.208 H B-Natriuretic Peptide Total Protein Albumin Globulin Albumin/Globulin Ratio Free T4 0.94 TSH 3rd Generation - Diagnostic Findings Procedure: Chest x-ray: report reviewed by me - EKG EKG results: interpreted by me EKG shows: tachycardia
[2016-12-28] MEDS ORDERED: HEPARIN/NACL 0.9% 2 UNITS/ML 1,000 ML IV ONE (14:23)
[2016-12-28] MEDS ORDERED: fentaNYL 100 MCG/2 ML VIAL ONE (14:49)
[2016-12-28] MEDS ORDERED: MIDAZOLAM 2 MG/2 ML VIAL ONE (14:49)
[2016-12-28] MEDS ORDERED: LIDOCAINE 1%/EPI INJ 20 ML VIAL ONE (15:11)
--- NOTE | 2016-12-28 15:18 | History and Physical Update ---
Sedation H&P Update - History and Physical H&P was reviewed, the patient examined and there: are no changes in the patients condition since last H&P was completed. - Sedation Plan for Sedation: moderate Patient Consent: Procedure disscussed with patient and patinet has consented., Risks and benefits were discussed with patient,including infection,, bleeding, injury to surrounding structures, seizure, temporary nerve, Patient understands and accepts potential risks/benefits and agrees to, proceed. ASA Class: III Airway Assessment: Class III: Soft palate, base of uvula visible
--- NOTE | 2016-12-28 15:57 | Cardiac Catheterization ---
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 He has not had any significant chest pain symptoms but has been complaining of worsening dyspnea and some orthopnea. He is for diagnostic evaluation and intervention if indicated Procedures performed: Left heart catheterization Coronary arteriography Left ventriculography [Right] femoral sheath angiography Mynx closure femoral arteriotomy site After obtaining informed consent the patient was brought to the catheterization lab where the [right] groin was prepped and draped in the usual sterile manner. After intravenous sedation and local anesthesia a needle stick was made to the right femoral artery and a [6 [place] sheath] was positioned without difficulty. A left heart catheterization was undertaken using first a Amanda left diagnostic catheter. The catheter was advanced under fluoroscopy over a guidewire and positioned with its tip in the ostium of the left main coronary artery. Multiple angiograms were obtained of the left coronary artery in multiple views. After adequate angiogram to left coronary obtain this catheter was withdrawn and an AMRM right coronary catheter was advanced over a guidewire under fluoroscopic control where angiography of the right coronary artery was undertaken in multiple views. After adequate angiograms of the right coronary artery were obtained this catheter was withdrawn. A pigtail ventriculographic catheter was advanced over a guidewire under fluoroscopic control to the ascending aorta where it was advanced across the aortic valve and intraventricular hemodynamics were measured. A ventriculogram was obtained in the GUEVARA projection and afterward a pullback was obtained from the ventricle to the aorta under hemodynamic monitoring and removed. At this point the patient underwent right femoral sheath angiography which demonstrated anatomy appropriate for Mynx closure. This was performed without difficulty and good hemostasis was obtained. The patient then was transferred back to the [facility] having suffered no significant immediate complications. Hemodynamics: Please see the accompanying data sheet Coronary arteriography: Left coronary artery: The left main coronary artery is well-developed and free of significant obstructing lesions. The circumflex coronary is a large nondominant vessel with possesses no significant lesions to its course. The branches of the circumflex likewise are free of significant obstructing lesions. The left anterior descending coronary artery is a large vessel that extends around the apex of the ventricle. The LAD has a stents just beyond the takeoff of a large first diagonal branch. The stents are widely patent and there is no disease of the diagonal ostium. The other branches of the LAD have no significant lesions through their course. Right coronary artery: The right coronary artery is large vessel that is dominant and is free of significant obstructing lesions. The PDA and posterolateral branches likewise are free of significant obstructing lesions. Left ventriculography: After injection of contrast into the left ventricle was noted to be enlarged and poorly contractile with diffuse severe left ventricular hypokinesis and an ejection fraction in the 20% range. Mitral and aortic structures appear normal by ventriculography. Right femoral sheath angiography: After injection of contrast into the right femoral arterial sheath it is noted be of normal caliber and enters above the bifurcation. The distal iliac, common femoral and bifurcation appear to be free of significant obstructing lesions based on this limited angiographic study. Conclusions: Angiographically no evidence of significant fixed coronary obstruction. Cardiomyopathy ejection fraction in the 20% range End diastolic pressure 26 mmHg Discussion and recommendations: Patient presents with dyspnea and has now got evidence of a nonischemic cardiomyopathy by LV gram. He was on appropriate medications and these will be intensified as tolerated. We will begin diuresis to see if we get his EDP down to the 18 range. Our findings have been reviewed with the patient and with Dr. Hermosillo. Surgeon / Physician: Neymar Lowe Estimated blood loss: minimal Specimens: none sent Condition: stable - Medications / Follow-up
[2016-12-28] MEDS: LISINOPRIL 20 MG TABLET PO SCH (17:15)
[2016-12-28] MEDS: traMADol 50 MG TABLET PO SCH ×2 (17:15→22:06)
[2016-12-28] MEDS: LEVOFLOXACIN INJ 500 MG in PREMIX 1 EACH IV SCH (17:17)
[2016-12-28] MEDS: FUROSEMIDE 40 MG/4 ML VIAL IV SCH (17:17)
[2016-12-28 18:27] LABS: Troponin I Only 0.236 NG/ML (0.00-0.045)
[2016-12-28] MEDS: NITROGLYCERIN 2% OINT 1 INCH/GM PACK TOP SCH ×2 (18:59→19:00)
[2016-12-28 19:18] LABS: Apearance,Urine CLEAR (Clear); Bilirubin,Urine Negative (Negative); Blood, Urine Negative (Negative); Glucose,Urine (UA) Negative (Negative); Hyaline Casts,Urine 26 /LPF (0-3); Ketones,Urine Negative (Negative); Mucus,Urine Occasional /LPF (Occasional); Nitrite,Urine Negative (Negative); Protein,Urine Negative; RBC,Urine 2 /HPF (0-4); Urine Color Yellow (Yellow); Urine Specific Gravity 1.036 (1.001-1.035); Urine Urobilinogen < 2.0 EU/DL (0.2-1.0); WBC,Urine 1 /HPF (0-6)
[2016-12-28 19:58] LABS: Barbiturates Screen,Urine Negative (Negative); Benzodiazepines Screen,Urine Positive (Negative); Cannabinoid Screen,Urine Negative (Negative); Opiate Screen,Urine Positive (Negative); Phencyclidine Screen,Urine Negative (Negative)
--- NOTE | 2016-12-28 20:50 | ECHO Report ---
Jasson Mcdonald Exam Date: 12/28/2016 13:36 Referring Physician: Technologist: constantine Don ARDMS, RVT Age: 56 Ht (in): 67 Wt (lb): 191 Gender: M Exam Location: [facility] Echo Indications: Shortness of breath, CAD, Pruritic condition, Gastritis, Hiatal hernia, Iron deficiecency, Lumbar rediculopathy BP: 158 / 118 HR: 116 Rhythm: Sinus Technical Quality: Fair IMPRESSIONS Severely reduced LV systolic function with regional wall motion as described below, ejection fraction 20%. Diastolic parameters cannot be well determined due to underlying arrhythmia. Mild left ventricular hypertrophy. Mild to moderate left atrial enlargement. Moderate mitral regurgitation. Mild to moderate tricuspid regurgitation. Pulmonary hypertension with pulmonary artery pressure estimated at 62 mmHg. MEASUREMENTS (Male / Female) Normal Values 2D ECHO LV Diastolic Diameter PLAX 5.2 cm 4.2 - 5.9 / 3.9 - 5.3 cm LV Systolic Diameter PLAX 5.6 cm LV Fractional Shortening PLAX -8.5 % IVS Diastolic Thickness 1.0 cm 0.6 - 1.0 / 0.6 - 0.9 cm LVPW Diastolic Thickness 1.2 cm 0.6 - 1.0 / 0.6 - 0.9 cm RV Internal Dim ED PLAX 4.5 cm LA Systolic Diameter LX 5.6 cm 3.0 - 4.0 / 2.7 - 3.8 cm DOPPLER TR Peak Velocity 360.0 cm/s TR Peak Gradient 51.8 mmHg FINDINGS Left Ventricle Normal left ventricular cavity size. Normal left ventricular wall thickness. Left ventricular ejection fraction is estimated at 20%. There is global hypokinesis, although the apex and inferior wall appear to be akinetic. Right Ventricle Moderately dilated Right Atrium The right atrium is normal in size. Left Atrium Mildly to moderately enlarged Mitral Valve Morphologically normal mitral valve. Moderate mitral valve regurgitation. Aortic Valve Morphologically normal aortic valve without significant sclerosis or stenosis. There is no aortic regurgitation. Tricuspid Valve Morphologically normal tricuspid valve. [id number] tricuspid valve regurgitation. Tricuspid regurgitation velocities suggest a PAP of 62 mmHg. Pulmonic Valve Morphologically normal pulmonic valve without significant stenosis. There is no pulmonic regurgitation. Pericardium Normal pericardium without effusion. Aorta Normal ascending aorta dimension. Myrna Dominguez MD (Electronically Signed) Final Date: 28 December 2016 20:49
[2016-12-28] MEDS ORDERED: ROSUVASTATIN 10 MG TABLET PO SCH (21:00)
[2016-12-28] MEDS ORDERED: SIMVASTATIN 40 MG TABLET PO SCH (21:00)
[2016-12-28] MEDS: CARVEDILOL 12.5 MG TABLET PO SCH (22:07)
[2016-12-28 23:21] LABS: Troponin I Only 0.223 NG/ML (0.00-0.045)
[2016-12-29] MEDS: NITROGLYCERIN 2% OINT 1 INCH/GM PACK TOP SCH ×2 (00:33→06:04)
[2016-12-29 05:18] LABS: Basophils % 0.1 % (0.0-0.8); Hematocrit 31.9 VOL% (42.0-52.0); Hemoglobin 10.4 GM/DL (14.0-18.0); Immature Granulocytes % 5.3 %; Immature Granulocytes Absolute 0.45 #; Lymphocytes # 1.7 10*3/uL (1.4-4.0); Lymphocytes % 19.8 % (21.2-54.2); Mean Corpuscular HGB Conc 32.6 GM/DL (32-36); Mean Corpuscular Hemoglobin 30 PG (27-34); Mean Corpuscular Volume 90.4 FL (87-102); Mean Platelet Volume 12.1 FL (9.6-12.0); Monocytes # 0.4 10*3/uL (0.11-0.8); Monocytes % 4.6 % (1.7-12.7); NRBC # 0.33 10*3/uL; Neutrophils # 5.9 10*3/uL (1.4-7.4); Neutrophils % 70.2 % (38.7-73.9); Platelet Count 244 T/CUMM (130-400); Red Blood Count 3.53 MC/CUMM (3.8-5.5); White Blood Count 8.4 T/CUMM (4-12)
[2016-12-29 05:56] LABS: Calcium 7.9 MG/DL (8.5-10.1); Magnesium 2.4 MG/DL (1.8-2.4); Osmolality,Calculated 288.1 MOS/KG (273-304); Potassium 3.5 MMOL/L (3.5-5.1)
[2016-12-29 06:16] LABS: Band Neutrophils 1 % (0-10); Hypochromasia 1+; Lymphocytes 11 % (20-55); Nucleated Red Blood Cells 6 (0-5); Platelet Estimate Adequate; Segmented Neutrophils 79 % (50-85); Total Cells Counted 100
[2016-12-29 06:17] LABS: Giant Platelets Few; Microcytosis 1+; Risk Ratio 6.54; VLDL CHOLESTEROL 109.8 MG/DL
[2016-12-29 07:28] LABS: Troponin I Only 0.209 NG/ML (0.00-0.045)
--- NOTE | 2016-12-29 07:50 | EKG Report ---
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
[2016-12-29] MEDS: traMADol 50 MG TABLET PO SCH ×3 (08:34→21:13)
[2016-12-29] MEDS: PANTOPRAZOLE 40 MG TABLET PO SCH (08:34)
[2016-12-29] MEDS: ASPIRIN EC 81 MG TABLET PO SCH (08:34)
[2016-12-29] MEDS: CARVEDILOL 12.5 MG TABLET PO SCH (08:34)
[2016-12-29] MEDS: LISINOPRIL 20 MG TABLET PO SCH (08:34)
[2016-12-29] MEDS: FUROSEMIDE 40 MG/4 ML VIAL IV SCH (08:35)
--- NOTE | 2016-12-29 11:26 | Cardiology Progress Note ---
<Michelle Maria E - Last Filed: 12/29/16 11:26> Assessment and Plan - Time spent with patient Time spent with patient: Greater than 30 minutes (1) Dyslipidemia Status: Chronic Assessment and plan: SEE PLAN OF CARE LISTED BELOW Current Visit: Yes (2) Suspected sleep apnea Status: Chronic Assessment and plan: SEE PLAN OF CARE LISTED BELOW Current Visit: Yes (3) Abnormal chest x-ray Status: Acute Assessment and plan: SEE PLAN OF CARE LISTED BELOW Current Visit: Yes (4) Edema Status: Resolved Assessment and plan: SEE PLAN OF CARE LISTED BELOW Current Visit: Yes Qualifiers: Edema type: unspecified Qualified Code(s): R60.9 - Edema, unspecified (5) Congestive heart failure Status: Acute Assessment and plan: SEE PLAN OF CARE LISTED BELOW Current Visit: No Qualifiers: Congestive heart failure type: systolic Congestive heart failure chronicity : acute Qualified Code(s): I50.21 - Acute systolic (congestive) heart failure (6) Elevated troponin Status: Resolved Assessment and plan: SEE PLAN OF CARE LISTED BELOW Current Visit: No (7) Coronary artery disease Status: Chronic Assessment and plan: SEE PLAN OF CARE LISTED BELOW Current Visit: No Qualifiers: Coronary Disease-Associated Artery/Lesion type: [place] artery [place] vs. 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 SERVIN SUMMARY: Mr. Mcdonald, 56WM, was directly admitted from cardiology clinic for severe SUMNER, concerning for angina. History of known coronary artery disease ( status post PCI to proximal and mid LAD June 04, 2015) hypertension, dyslipidemia and obesity. Prior history of EF noted to be 50%. Underwent elective cardiac catheterization, performed by Dr. Lowe. Identified was the following: Conclusions: Angiographically no evidence of significant fixed coronary obstruction. Cardiomyopathy ejection fraction in the 20% range End diastolic pressure 26 mmHg Discussion and recommendations: Patient presents with dyspnea and has now got evidence of a nonischemic cardiomyopathy by LV gram. He was on appropriate medications and these will be intensified as tolerated. We will begin diuresis to see if we get his EDP down to the 18 range. Our findings have been reviewed with the patient and with Dr. Servin. Patient tolerated the procedure well without complication was returned to the telemetry unit in stable condition. DECEMBER 29, 2016: This morning, patient denies having chest pain, heaviness or tightness. Breathing has improved only a minimal amount but is no longer orthopneic. White blood cell count has normalized today we will continue with IV Levaquin for treatment of possible CAP. Patient's weight decreased 1 kg overnight, labs are stable. Patient's tachycardia has resolved this morning. Will increase beta coretta this morning as his blood pressure will allow us to do such, continue MARY ELLEN inhibitor. Will add Spironolactone as well. Triglycerides 549, LDL 147. Adding omega-3 twice daily, lipid-lowering agent as well. Unfortunately, patient is uninsured. We had a conversation of greater than 30 minutes today discussing the importance of securing insurance benefits. He may be a candidate for disability given the severity of his newly discovered cardiomyopathy. I have asked case management to discuss this with him. We will continue aggressive medical therapy and in 90 days, reevaluate with echocardiogram. He has been informed that should his cardiomyopathy not improved to an EF greater than 30%, he will need ICD. He and his mother verbalized understanding of this information. Also, patient has a sleep disorder concerning for severe obstructive sleep apnea. Once insurance benefits are obtained, he will need further workup from sleep medicine. Continue with diuresing and afterload reduction, treating his acute CHF and possible CAP. Hopefully, patient will continue to improve and be ready for discharge by the weekend. I will further discuss with Dr. Lowe and await additional recommendations. ASSESSMENT/PLAN: 1. SOB - multifactorial to include acute CHF, possible CAP, suspected obstructive sleep apnea 2. KNOWN CAD - status post PCI to the proximal and mid LAD May 2015 3. HYPERTENSION - suboptimally controlled at this time. Increasing beta- coretta, continue MARY ELLEN inhibitor. 4. DYSLIPIDEMIA - LDL 147, triglycerides 549. Adding omega-3 facial twice daily, lipid-lowering agent. 5. EDEMA RLE - resolved. Venous ultrasound bilateral lower extremity reveals no evidence of DVT 6. ELEVATED TROPONIN - troponin elevated likely related to his tachycardia and CHF. This is not [place]. 7. NICM - EF 20%. This is a new cardiomyopathy. See discussion above. 8. POSSIBLE CAP - continue Levaquin IV, pulmonary toilet. 9. ACUTE CHF - secondary to systolic dysfunction (EF 20%), initially NYHA Class IV, now Class III. 10. SLEEP DISORDER - concerning for sleep apnea. Needs eventual sleep study when insurance benefits obtained Exam (Progress Note) - Constitutional Vitals: Period Temp Pulse Resp BP Sys/French Pulse Ox Last 24 Hr 97.1 F-97.6 F 62-114 18-20 125-176/72-118 93-98 Exam: General: [Appears well with no apparent distress.] [Pleasant and cooperative. ] [Appears comfortable.] HEENT: [PERRL, normocephalic, atraumatic. Mucous membranes moist. No jaundice noted. Conjunctiva moist and clear, sclerae anicteric] Neck: Difficult to assess for JVD due to habitus. No lymphadenopathy noted. No carotid bruit appreciated Cardiac: [Regular rate and rhythm.] [No obvious murmur rub or gallop.] Lungs: [Decreased sounds throughout. No wheezing or rales detected. ] Using oxygen intermittently Abdomen: Soft, bowel sounds normoactive. Nontender and nondistended. No abdominal bruit or thrill noted. No masses noted. Musculoskeletal: No fluid collection. Decreased range of motion is noted. Extremities: Right groin soft, free of hematoma or bruit. No clubbing, cyanosis noted. [ No edema noted.] Upper extremity pulses 2+. Lower extremity pulses 2+. Capillary refill less than 3 seconds. Skin: No unusual lesions or rashes. No skin breakdown appreciated. Neuro: Awake, alert and oriented 3. Moves all extremities well without hemiparesis or paralysis. No essential tremor is appreciated. Result/EKG - Labs CBC & BMP: 12/29/16 04:25 12/29/16 04:25 Lab Results: I have reviewed the past 24 hour labs Labs: Laboratory Results - last 24 hr 12/28/16 12/28/16 12/28/16 10:29 10:29 12:33 WBC RBC Hgb Hct MCV MCH MCHC RDW Plt Count MPV Neut % (Auto) Lymph % (Auto) [place] % (Auto) Eos % (Auto) Baso % (Auto) Neut # (Auto) Lymph # (Auto) [place] # (Auto) Eos # (Auto) Baso # (Auto) Total Counted Immature Gran % Nucleated RBC % Immature Gran # Segmented Neutrophils Band Neutrophils Lymphocytes Monocytes Nucleated RBCs Nucleated RBCs # Platelet Estimate Giant Platelets Immature Plt Fraction Hypochromasia Microcytosis INR PT Patient/Control Mix D-Dimer, Quantitative Sodium 140 Potassium 4.2 Chloride 105 Carbon Dioxide 25 Anion Gap 14.2 BUN 37 H Creatinine 1.30 GFR Calculation 69 BUN/Creatinine Ratio 28.00 H Glucose 113 H Calculated Osmolality 288.4 Calcium 8.8 Magnesium 2.5 H Total Bilirubin 0.70 AST 32 ALT 66 H Alkaline Phosphatase 98 Total Creatine Kinase CK-MB (CK-2) Troponin I B-Natriuretic Peptide 1706 H Total Protein 6.2 L Albumin 3.4 Globulin 2.8 Albumin/Globulin Ratio 1.2 Triglycerides Cholesterol LDL Cholesterol VLDL Cholesterol HDL Cholesterol Heart Disease Risk Ratio Free T4 0.94 TSH 3rd Generation 0.239 L Urine Color Urine Appearance Urine pH Ur Specific [place] Urine Protein Urine Glucose (UA) Urine Ketones Urine Blood Urine Nitrate Urine Bilirubin Urine Urobilinogen Urine Leukocytes Urine RBC Urine WBC Hyaline Casts Urine Mucus Ur Culture Indicated? Urine Opiates Screen Ur Barbiturates Screen Ur Phencyclidine Scrn U Amphetamine/Methamph U Benzodiazepines Scrn U Cocaine Metab Screen U Cannabinoids Screen 12/28/16 12/28/16 12/28/16 12:33 12:34 17:31 WBC RBC Hgb Hct MCV MCH MCHC RDW Plt Count MPV Neut % (Auto) Lymph % (Auto) [place] % (Auto) Eos % (Auto) Baso % (Auto) Neut # (Auto) Lymph # (Auto) [place] # (Auto) Eos # (Auto) Baso # (Auto) Total Counted Immature Gran % Nucleated RBC % Immature Gran # Segmented Neutrophils Band Neutrophils Lymphocytes Monocytes Nucleated RBCs Nucleated RBCs # Platelet Estimate Giant Platelets Immature Plt Fraction Hypochromasia Microcytosis INR PT Patient/Control Mix D-Dimer, Quantitative 0.7 Sodium Potassium Chloride Carbon Dioxide Anion Gap BUN Creatinine GFR Calculation BUN/Creatinine Ratio Glucose Calculated Osmolality Calcium Magnesium Total Bilirubin AST ALT Alkaline Phosphatase Total Creatine Kinase 76 58 D CK-MB (CK-2) 2.4 2.0 Troponin I 0.208 H 0.236 H B-Natriuretic Peptide Total Protein Albumin Globulin Albumin/Globulin Ratio Triglycerides Cholesterol LDL Cholesterol VLDL Cholesterol HDL Cholesterol Heart Disease Risk Ratio Free T4 TSH 3rd Generation Urine Color Urine Appearance Urine pH Ur Specific [place] Urine Protein Urine Glucose (UA) Urine Ketones Urine Blood Urine Nitrate Urine Bilirubin Urine Urobilinogen Urine Leukocytes Urine RBC Urine WBC Hyaline Casts Urine Mucus Ur Culture Indicated? Urine Opiates Screen Ur Barbiturates Screen Ur Phencyclidine Scrn U Amphetamine/Methamph U Benzodiazepines Scrn U Cocaine Metab Screen U Cannabinoids Screen 12/28/16 12/28/16 12/28/16 18:43 18:43 22:33 WBC RBC Hgb Hct MCV MCH MCHC RDW Plt Count MPV Neut % (Auto) Lymph % (Auto) [place] % (Auto) Eos % (Auto) Baso % (Auto) Neut # (Auto) Lymph # (Auto) [place] # (Auto) Eos # (Auto) Baso # (Auto) Total Counted Immature Gran % Nucleated RBC % Immature Gran # Segmented Neutrophils Band Neutrophils Lymphocytes Monocytes Nucleated RBCs Nucleated RBCs # Platelet Estimate Giant Platelets Immature Plt Fraction Hypochromasia Microcytosis INR PT Patient/Control Mix D-Dimer, Quantitative Sodium Potassium Chloride Carbon Dioxide Anion Gap BUN Creatinine GFR Calculation BUN/Creatinine Ratio Glucose Calculated Osmolality Calcium Magnesium Total Bilirubin AST ALT Alkaline Phosphatase Total Creatine Kinase 66 CK-MB (CK-2) 1.9 Troponin I 0.223 H B-Natriuretic Peptide Total Protein Albumin Globulin Albumin/Globulin Ratio Triglycerides Cholesterol LDL Cholesterol VLDL Cholesterol HDL Cholesterol Heart Disease Risk Ratio Free T4 TSH 3rd Generation Urine Color Yellow Urine Appearance Clear Urine pH 5.0 Ur Specific [place] 1.036 H Urine Protein Negative Urine Glucose (UA) Negative Urine Ketones Negative Urine Blood Negative Urine Nitrate Negative Urine Bilirubin Negative Urine Urobilinogen < 2.0 H Urine Leukocytes Negative Urine RBC 2 Urine WBC 1 Hyaline Casts 26 Urine Mucus Occasional Ur Culture Indicated? Not indicated Urine Opiates Screen Positive H Ur Barbiturates Screen Negative Ur Phencyclidine Scrn Negative U Amphetamine/Methamph Negative U Benzodiazepines Scrn Positive H U Cocaine Metab Screen Negative U Cannabinoids Screen Negative 12/28/16 12/29/16 12/29/16 Unknown 04:25 04:25 WBC 8.4 D RBC 3.53 L Hgb 10.4 L Hct 31.9 L MCV 90.4 MCH 30 MCHC 32.6 RDW 17.0 Plt Count 244 D MPV 12.1 H Neut % (Auto) 70.2 Lymph % (Auto) 19.8 L [place] % (Auto) 4.6 Eos % (Auto) 0.0 Baso % (Auto) 0.1 Neut # (Auto) 5.9 Lymph # (Auto) 1.7 [place] # (Auto) 0.4 Eos # (Auto) 0.0 Baso # (Auto) 0.0 Total Counted 100 Immature Gran % 5.3 Nucleated RBC % 3.9 Immature Gran # 0.45 Segmented Neutrophils 79 Band Neutrophils 1 Lymphocytes 11 L Monocytes 9 Nucleated RBCs 6 H Nucleated RBCs # 0.33 Platelet Estimate Adequate Giant Platelets Few Immature Plt Fraction 0.0 Hypochromasia 1+ Microcytosis 1+ INR 1.1 PT Patient/Control Mix 11.3 D-Dimer, Quantitative Sodium 142 Potassium 3.5 Chloride 104 Carbon Dioxide 29 Anion Gap 12.5 BUN 32 H Creatinine 1.00 GFR Calculation 95 BUN/Creatinine Ratio 32.00 H Glucose 82 Calculated Osmolality 288.1 Calcium 7.9 L Magnesium 2.4 Total Bilirubin AST ALT Alkaline Phosphatase Total Creatine Kinase CK-MB (CK-2) Troponin I B-Natriuretic Peptide Total Protein Albumin Globulin Albumin/Globulin Ratio Triglycerides Cholesterol LDL Cholesterol VLDL Cholesterol HDL Cholesterol Heart Disease Risk Ratio Free T4 TSH 3rd Generation Urine Color Urine Appearance Urine pH Ur Specific [place] Urine Protein Urine Glucose (UA) Urine Ketones Urine Blood Urine Nitrate Urine Bilirubin Urine Urobilinogen Urine Leukocytes Urine RBC Urine WBC Hyaline Casts Urine Mucus Ur Culture Indicated? Urine Opiates Screen Ur Barbiturates Screen Ur Phencyclidine Scrn U Amphetamine/Methamph U Benzodiazepines Scrn U Cocaine Metab Screen U Cannabinoids Screen 12/29/16 12/29/16 04:25 06:24 WBC RBC Hgb Hct MCV MCH MCHC RDW Plt Count MPV Neut % (Auto) Lymph % (Auto) [place] % (Auto) Eos % (Auto) Baso % (Auto) Neut # (Auto) Lymph # (Auto) [place] # (Auto) Eos # (Auto) Baso # (Auto) Total Counted Immature Gran % Nucleated RBC % Immature Gran # Segmented Neutrophils Band Neutrophils Lymphocytes Monocytes Nucleated RBCs Nucleated RBCs # Platelet Estimate Giant Platelets Immature Plt Fraction Hypochromasia Microcytosis INR PT Patient/Control Mix D-Dimer, Quantitative Sodium Potassium Chloride Carbon Dioxide Anion Gap BUN Creatinine GFR Calculation BUN/Creatinine Ratio Glucose Calculated Osmolality Calcium Magnesium Total Bilirubin AST ALT Alkaline Phosphatase Total Creatine Kinase 46 D CK-MB (CK-2) 1.4 Troponin I 0.209 H B-Natriuretic Peptide Total Protein Albumin Globulin Albumin/Globulin Ratio Triglycerides 549 H Cholesterol 229 H LDL Cholesterol 147.0 VLDL Cholesterol 109.8 HDL Cholesterol 35 L Heart Disease Risk Ratio 6.54 Free T4 TSH 3rd Generation Urine Color Urine Appearance Urine pH Ur Specific [place] Urine Protein Urine Glucose (UA) Urine Ketones Urine Blood Urine Nitrate Urine Bilirubin Urine Urobilinogen Urine Leukocytes Urine RBC Urine WBC Hyaline Casts Urine Mucus Ur Culture Indicated? Urine Opiates Screen Ur Barbiturates Screen Ur Phencyclidine Scrn U Amphetamine/Methamph U Benzodiazepines Scrn U Cocaine Metab Screen U Cannabinoids Screen - EKG EKG results: interpreted by me EKG shows: sinus rhythm Quality Measures - VTE Contraindication to Pharmacological VTE Prophylaxis: High Risk of Bleeding Specialty Discharge - Follow Up or Referrals <Neymar Lowe - Last Filed: 12/29/16 13:56> Cardiology - PN: Subj Interval history: This is a 56-year-old man who has history coronary disease presented with heart failure symptoms. He underwent cardiac catheterization which demonstrated a widely patent LAD stented segment without other significant disease but worsening LV function now to the point that his ejection fraction is in the 20% range. We are diuresing him and he feels better and we are going to adjust his medications and hopefully have him follow up closely with medicines. I have discussed in detail the particulars of this case and I have examined the patient and reviewed the patient's chart both current and old. I was directly involved in the patient's evaluation and management and I completely agree with Michelle Maria NP regarding this patient's evaluation and treatment plan. Exam (Progress Note) - Constitutional Vitals: Period Temp Pulse Resp BP Sys/French Pulse Ox Last 24 Hr 97.1 F-97.4 F 62-112 18-20 101-176/56-105 92-98 Result/EKG - Labs CBC & BMP: 12/29/16 04:25 12/29/16 04:25 Labs: Laboratory Results - last 24 hr 12/28/16 12/28/16 12/28/16 17:31 18:43 18:43 WBC RBC Hgb Hct MCV MCH MCHC RDW Plt Count MPV Neut % (Auto) Lymph % (Auto) [place] % (Auto) Eos % (Auto) Baso % (Auto) Neut # (Auto) Lymph # (Auto) [place] # (Auto) Eos # (Auto) Baso # (Auto) Total Counted Immature Gran % Nucleated RBC % Immature Gran # Segmented Neutrophils Band Neutrophils Lymphocytes Monocytes Nucleated RBCs Nucleated RBCs # Platelet Estimate Giant Platelets Immature Plt Fraction Hypochromasia Microcytosis INR PT Patient/Control Mix Sodium Potassium Chloride Carbon Dioxide Anion Gap BUN Creatinine GFR Calculation BUN/Creatinine Ratio Glucose Calculated Osmolality Calcium Magnesium Total Creatine Kinase 58 D CK-MB (CK-2) 2.0 Troponin I 0.236 H Triglycerides Cholesterol LDL Cholesterol VLDL Cholesterol HDL Cholesterol Heart Disease Risk Ratio Urine Color Yellow Urine Appearance Clear Urine pH 5.0 Ur Specific [place] 1.036 H Urine Protein Negative Urine Glucose (UA) Negative Urine Ketones Negative Urine Blood Negative Urine Nitrate Negative Urine Bilirubin Negative Urine Urobilinogen < 2.0 H Urine Leukocytes Negative Urine RBC 2 Urine WBC 1 Hyaline Casts 26 Urine Mucus Occasional Ur Culture Indicated? Not indicated Urine Opiates Screen Positive H Ur Barbiturates Screen Negative Ur Phencyclidine Scrn Negative U Amphetamine/Methamph Negative U Benzodiazepines Scrn Positive H U Cocaine Metab Screen Negative U Cannabinoids Screen Negative 12/28/16 12/28/16 12/29/16 22:33 Unknown 04:25 WBC 8.4 D RBC 3.53 L Hgb 10.4 L Hct 31.9 L MCV 90.4 MCH 30 MCHC 32.6 RDW 17.0 Plt Count 244 D MPV 12.1 H Neut % (Auto) 70.2 Lymph % (Auto) 19.8 L [place] % (Auto) 4.6 Eos % (Auto) 0.0 Baso % (Auto) 0.1 Neut # (Auto) 5.9 Lymph # (Auto) 1.7 [place] # (Auto) 0.4 Eos # (Auto) 0.0 Baso # (Auto) 0.0 Total Counted 100 Immature Gran % 5.3 Nucleated RBC % 3.9 Immature Gran # 0.45 Segmented Neutrophils 79 Band Neutrophils 1 Lymphocytes 11 L Monocytes 9 Nucleated RBCs 6 H Nucleated RBCs # 0.33 Platelet Estimate Adequate Giant Platelets Few Immature Plt Fraction 0.0 Hypochromasia 1+ Microcytosis 1+ INR 1.1 PT Patient/Control Mix 11.3 Sodium Potassium Chloride Carbon Dioxide Anion Gap BUN Creatinine GFR Calculation BUN/Creatinine Ratio Glucose Calculated Osmolality Calcium Magnesium Total Creatine Kinase 66 CK-MB (CK-2) 1.9 Troponin I 0.223 H Triglycerides Cholesterol LDL Cholesterol VLDL Cholesterol HDL Cholesterol Heart Disease Risk Ratio Urine Color Urine Appearance Urine pH Ur Specific [place] Urine Protein Urine Glucose (UA) Urine Ketones Urine Blood Urine Nitrate Urine Bilirubin Urine Urobilinogen Urine Leukocytes Urine RBC Urine WBC Hyaline Casts Urine Mucus Ur Culture Indicated? Urine Opiates Screen Ur Barbiturates Screen Ur Phencyclidine Scrn U Amphetamine/Methamph U Benzodiazepines Scrn U Cocaine Metab Screen U Cannabinoids Screen 12/29/16 12/29/16 12/29/16 04:25 04:25 06:24 WBC RBC Hgb Hct MCV MCH MCHC RDW Plt Count MPV Neut % (Auto) Lymph % (Auto) [place] % (Auto) Eos % (Auto) Baso % (Auto) Neut # (Auto) Lymph # (Auto) [place] # (Auto) Eos # (Auto) Baso # (Auto) Total Counted Immature Gran % Nucleated RBC % Immature Gran # Segmented Neutrophils Band Neutrophils Lymphocytes Monocytes Nucleated RBCs Nucleated RBCs # Platelet Estimate Giant Platelets Immature Plt Fraction Hypochromasia Microcytosis INR PT Patient/Control Mix Sodium 142 Potassium 3.5 Chloride 104 Carbon Dioxide 29 Anion Gap 12.5 BUN 32 H Creatinine 1.00 GFR Calculation 95 BUN/Creatinine Ratio 32.00 H Glucose 82 Calculated Osmolality 288.1 Calcium 7.9 L Magnesium 2.4 Total Creatine Kinase 46 D CK-MB (CK-2) 1.4 Troponin I 0.209 H Triglycerides 549 H Cholesterol 229 H LDL Cholesterol 147.0 VLDL Cholesterol 109.8 HDL Cholesterol 35 L Heart Disease Risk Ratio 6.54 Urine Color Urine Appearance Urine pH Ur Specific [place] Urine Protein Urine Glucose (UA) Urine Ketones Urine Blood Urine Nitrate Urine Bilirubin Urine Urobilinogen Urine Leukocytes Urine RBC Urine WBC Hyaline Casts Urine Mucus Ur Culture Indicated? Urine Opiates Screen Ur Barbiturates Screen Ur Phencyclidine Scrn U Amphetamine/Methamph U Benzodiazepines Scrn U Cocaine Metab Screen U Cannabinoids Screen
[2016-12-29] MEDS ORDERED: CARVEDILOL 12.5 MG TABLET PO ONE (11:45)
[2016-12-29] MEDS: ENOXAPARIN 40 MG/0.4 ML SYRINGE SUBCUT SCH (12:21)
[2016-12-29] MEDS: OMEGA 3 ACID ETHYL ESTERS 1 GM CAPSULE PO SCH ×2 (12:21→21:13)
[2016-12-29] MEDS: LEVOFLOXACIN INJ 500 MG in PREMIX 1 EACH IV SCH (14:23)
[2016-12-29] MEDS: CARVEDILOL 25 MG TABLET PO SCH (21:13)
[2016-12-29] MEDS: PRAVASTATIN 40 MG TABLET PO SCH (21:13)
[2016-12-30 04:47] LABS: Basophils % 0.3 % (0.0-0.8); Eosinophils % 0.3 % (0.00-10.9); Hemoglobin 10.6 GM/DL (14.0-18.0); Immature Granulocytes % 8.3 %; Immature Granulocytes Absolute 0.74 #; Lymphocytes # 1.2 10*3/uL (1.4-4.0); Lymphocytes % 13.2 % (21.2-54.2); Mean Corpuscular HGB Conc 32.1 GM/DL (32-36); Mean Corpuscular Hemoglobin 29 PG (27-34); Mean Corpuscular Volume 88.9 FL (87-102); Mean Platelet Volume 11.3 FL (9.6-12.0); Monocytes % 10.8 % (1.7-12.7); Neutrophils % 67.1 % (38.7-73.9); Platelet Count 293 T/CUMM (130-400); Red Blood Count 3.71 MC/CUMM (3.8-5.5); Red Cell Distribution Width 16.7 % (9.3-17.3); White Blood Count 8.9 T/CUMM (4-12)
[2016-12-30 05:17] LABS: Anisocytosis 1+; Band Neutrophils 2 % (0-10); Eosinophils 1 % (0-10); Lymphocytes 13 % (20-55); Macrocytosis 1+; Metamyelocytes 4 %; Myelocytes 2 %; Ovalocytes 1+; Platelet Estimate Normal; Polychromasia 2+; Segmented Neutrophils 69 % (50-85); Total Cells Counted 100
[2016-12-30 05:21] LABS: Magnesium 2.2 MG/DL (1.8-2.4); Osmolality,Calculated 286.1 MOS/KG (273-304); Potassium 3.3 MMOL/L (3.5-5.1)
[2016-12-30] MEDS: POTASSIUM CHLORIDE RIDER 10 MEQ in PREMIX 1 EACH IV PRN ×2 (05:43→10:00)
[2016-12-30] MEDS: PANTOPRAZOLE 40 MG TABLET PO SCH (09:14)
[2016-12-30] MEDS: ASPIRIN EC 81 MG TABLET PO SCH (09:15)
[2016-12-30] MEDS: CARVEDILOL 25 MG TABLET PO SCH ×2 (09:15→21:41)
[2016-12-30] MEDS: FUROSEMIDE 40 MG TABLET PO SCH (09:15)
[2016-12-30] MEDS: traMADol 50 MG TABLET PO SCH ×3 (09:15→21:42)
[2016-12-30] MEDS: LISINOPRIL 20 MG TABLET PO SCH (09:19)
[2016-12-30] MEDS: OMEGA 3 ACID ETHYL ESTERS 1 GM CAPSULE PO SCH ×2 (09:19→21:42)
--- NOTE | 2016-12-30 11:40 | Cardiology Progress Note ---
Assessment and Plan - Time spent with patient Time spent with patient: Greater than 30 minutes (1) Dyslipidemia Status: Chronic Assessment and plan: SEE PLAN OF CARE LISTED BELOW Current Visit: Yes (2) Suspected sleep apnea Status: Chronic Assessment and plan: SEE PLAN OF CARE LISTED BELOW Current Visit: Yes (3) Abnormal chest x-ray Status: Acute Assessment and plan: SEE PLAN OF CARE LISTED BELOW Current Visit: Yes (4) Edema Status: Resolved Assessment and plan: SEE PLAN OF CARE LISTED BELOW Current Visit: Yes Qualifiers: Edema type: unspecified Qualified Code(s): R60.9 - Edema, unspecified (5) Congestive heart failure Status: Acute Assessment and plan: SEE PLAN OF CARE LISTED BELOW Current Visit: No Qualifiers: Congestive heart failure type: systolic Congestive heart failure chronicity : acute Qualified Code(s): I50.21 - Acute systolic (congestive) heart failure (6) Elevated troponin Status: Resolved Assessment and plan: SEE PLAN OF CARE LISTED BELOW Current Visit: No (7) Coronary artery disease Status: Chronic Assessment and plan: SEE PLAN OF CARE LISTED BELOW Current Visit: No Qualifiers: Coronary Disease-Associated Artery/Lesion type: [place] artery [place] vs. 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 SERVIN SUMMARY: Mr. Mcdonald, 56WM, was directly admitted from cardiology clinic for severe SUMNER, concerning for angina. History of known coronary artery disease ( status post PCI to proximal and mid LAD June 04, 2015) hypertension, dyslipidemia and obesity. Prior history of EF noted to be 50%. Underwent elective cardiac catheterization, performed by Dr. Lowe. Identified was the following: Conclusions: Angiographically no evidence of significant fixed coronary obstruction. Cardiomyopathy ejection fraction in the 20% range End diastolic pressure 26 mmHg Discussion and recommendations: Patient presents with dyspnea and has now got evidence of a nonischemic cardiomyopathy by LV gram. He was on appropriate medications and these will be intensified as tolerated. We will begin diuresis to see if we get his EDP down to the 18 range. Our findings have been reviewed with the patient and with Dr. Servin. Patient tolerated the procedure well without complication was returned to the telemetry unit in stable condition. DECEMBER 29, 2016: This morning, patient denies having chest pain, heaviness or tightness. Breathing has improved only a minimal amount but is no longer orthopneic. White blood cell count has normalized today we will continue with IV Levaquin for treatment of possible CAP. Patient's weight decreased 1 kg overnight, labs are stable. Patient's tachycardia has resolved this morning. Will increase beta coretta this morning as his blood pressure will allow us to do such, continue MARY ELLEN inhibitor. Will add Spironolactone as well. Triglycerides 549, LDL 147. Adding omega-3 twice daily, lipid-lowering agent as well. Unfortunately, patient is uninsured. We had a conversation of greater than 30 minutes today discussing the importance of securing insurance benefits. He may be a candidate for disability given the severity of his newly discovered cardiomyopathy. I have asked case management to discuss this with him. We will continue aggressive medical therapy and in 90 days, reevaluate with echocardiogram. He has been informed that should his cardiomyopathy not improved to an EF greater than 30%, he will need ICD. He and his mother verbalized understanding of this information. Also, patient has a sleep disorder concerning for severe obstructive sleep apnea. Once insurance benefits are obtained, he will need further workup from sleep medicine. Continue with diuresing and afterload reduction, treating his acute CHF and possible CAP. Hopefully, patient will continue to improve and be ready for discharge by the weekend. I will further discuss with Dr. Lowe and await additional recommendations. DECEMBER 30, 2016: Doing well overnight. Continues to be short of breath but this is better. Hypokalemic today. Will give a dose of potassium today. Blood pressure is suboptimally controlled and today I will increase his lisinopril giving an equivalent dose today to equal 40 mg daily. Hopefully, tomorrow he will be eligible for discharge. Will further discuss with Dr. Lowe and await additional recommendations. ASSESSMENT/PLAN: 1. SOB - multifactorial to include acute CHF, possible CAP, suspected obstructive sleep apnea 2. KNOWN CAD - status post PCI to the proximal and mid LAD May 2015 3. HYPERTENSION - suboptimally controlled at this time. Increasing beta- coretta, continue MARY ELLEN inhibitor. 4. DYSLIPIDEMIA - LDL 147, triglycerides 549. Adding omega-3 facial twice daily, lipid-lowering agent. 5. EDEMA RLE - resolved. Venous ultrasound bilateral lower extremity reveals no evidence of DVT 6. ELEVATED TROPONIN - troponin elevated likely related to his tachycardia and CHF. This is not [place]. 7. NICM - EF 20%. This is a new cardiomyopathy. See discussion above. 8. POSSIBLE CAP - continue Levaquin IV, pulmonary toilet. 9. ACUTE CHF - secondary to systolic dysfunction (EF 20%), initially NYHA Class IV, now Class III. 10. SLEEP DISORDER - concerning for sleep apnea. Needs eventual sleep study when insurance benefits obtained Exam (Progress Note) - Constitutional Vitals: Period Temp Pulse Resp BP Sys/French Pulse Ox Last 24 Hr 96.9 F-98.8 F 76-87 16-20 102-158/69-97 90-100 Exam: General: [Appears well with no apparent distress.] [Pleasant and cooperative. ] [Appears comfortable.] HEENT: [PERRL, normocephalic, atraumatic. Mucous membranes moist. No jaundice noted. Conjunctiva moist and clear, sclerae anicteric] Neck: Difficult to assess for JVD due to habitus. No lymphadenopathy noted. No carotid bruit appreciated Cardiac: [Regular rate and rhythm.] [No obvious murmur rub or gallop.] Lungs: [Decreased sounds throughout. No wheezing or rales detected. ] Using oxygen intermittently Abdomen: Soft, bowel sounds normoactive. Nontender and nondistended. No abdominal bruit or thrill noted. No masses noted. Musculoskeletal: No fluid collection. Decreased range of motion is noted. Extremities: Right groin soft, free of hematoma or bruit. No clubbing, cyanosis noted. [ No edema noted.] Upper extremity pulses 2+. Lower extremity pulses 2+. Capillary refill less than 3 seconds. Skin: No unusual lesions or rashes. No skin breakdown appreciated. Neuro: Awake, alert and oriented 3. Moves all extremities well without hemiparesis or paralysis. No essential tremor is appreciated. Result/EKG - Labs CBC & BMP: 12/30/16 03:59 12/30/16 03:59 Lab Results: I have reviewed the past 24 hour labs Labs: Laboratory Results - last 24 hr 12/30/16 12/30/16 03:59 03:59 WBC 8.9 RBC 3.71 L Hgb 10.6 L Hct 33.0 L MCV 88.9 MCH 29 MCHC 32.1 RDW 16.7 Plt Count 293 D MPV 11.3 Neut % (Auto) 67.1 Lymph % (Auto) 13.2 L [place] % (Auto) 10.8 Eos % (Auto) 0.3 Baso % (Auto) 0.3 Neut # (Auto) 6.0 Lymph # (Auto) 1.2 L [place] # (Auto) 1.0 H Eos # (Auto) 0.0 Baso # (Auto) 0.0 Total Counted 100 Immature Gran % 8.3 Nucleated RBC % 1.1 Immature Gran # 0.74 Segmented Neutrophils 69 Band Neutrophils 2 Lymphocytes 13 L Monocytes 9 Eosinophils 1 Metamyelocytes 4 Myelocytes 2 Nucleated RBCs # 0.10 Platelet Estimate Normal Immature Plt Fraction 0.0 Polychromasia 2+ Anisocytosis 1+ Macrocytosis 1+ Ovalocytes 1+ Sodium 142 Potassium 3.3 L Chloride 103 Carbon Dioxide 32 Anion Gap 10.3 BUN 23 H Creatinine 0.80 GFR Calculation 112 BUN/Creatinine Ratio 28.00 H Glucose 97 Calculated Osmolality 286.1 Calcium 8.0 L Magnesium 2.2 - EKG EKG results: interpreted by me EKG shows: sinus rhythm Quality Measures - VTE Contraindication to Pharmacological VTE Prophylaxis: High Risk of Bleeding Specialty Discharge - Follow Up or Referrals
[2016-12-30] MEDS ORDERED: LISINOPRIL 10 MG TABLET PO ONE (11:41)
[2016-12-30] MEDS ORDERED: POTASSIUM CHLORIDE 20 MEQ TABLET PO ONE (11:42)
[2016-12-30] MEDS: LEVOFLOXACIN INJ 500 MG in PREMIX 1 EACH IV SCH (14:59)
[2016-12-30] MEDS: ENOXAPARIN 40 MG/0.4 ML SYRINGE SUBCUT SCH (15:05)
[2016-12-30] MEDS: PRAVASTATIN 40 MG TABLET PO SCH (21:42)
[2016-12-31 05:16] LABS: Basophils % 0.2 % (0.0-0.8); Eosinophils # 0.2 10*3/uL (0.0-0.87); Hematocrit 34.9 VOL% (42.0-52.0); Hemoglobin 11.1 GM/DL (14.0-18.0); Immature Granulocytes % 11.4 %; Immature Granulocytes Absolute 1.03 #; Lymphocytes # 1.5 10*3/uL (1.4-4.0); Lymphocytes % 16.2 % (21.2-54.2); Mean Corpuscular HGB Conc 31.8 GM/DL (32-36); Mean Corpuscular Hemoglobin 29 PG (27-34); Mean Corpuscular Volume 89.9 FL (87-102); Mean Platelet Volume 11.2 FL (9.6-12.0); Monocytes % 10.5 % (1.7-12.7); NRBC # 0.04 10*3/uL; Neutrophils # 5.4 10*3/uL (1.4-7.4); Neutrophils % 59.7 % (38.7-73.9); Platelet Count 291 T/CUMM (130-400); Red Blood Count 3.88 MC/CUMM (3.8-5.5); Red Cell Distribution Width 16.8 % (9.3-17.3); White Blood Count 9.1 T/CUMM (4-12)
[2016-12-31 05:35] LABS: Atypical Lymphocytes Few; Band Neutrophils 1 % (0-10); Eosinophils 3 % (0-10); Giant Platelets Few; Lymphocytes 20 % (20-55); Metamyelocytes 3 %; Myelocytes 5 %; Promyelocytes 1 %; Segmented Neutrophils 59 % (50-85); Smudge Cells Few; Total Cells Counted 100
[2016-12-31 05:44] LABS: Calcium 8.3 MG/DL (8.5-10.1); Magnesium 2.2 MG/DL (1.8-2.4); Potassium 3.9 MMOL/L (3.5-5.1)
[2016-12-31 08:55] VITALS: BP 125/73
[2016-12-31] MEDS: PANTOPRAZOLE 40 MG TABLET PO SCH (08:58)
[2016-12-31] MEDS: OMEGA 3 ACID ETHYL ESTERS 1 GM CAPSULE PO SCH (08:58)
[2016-12-31] MEDS: FUROSEMIDE 40 MG TABLET PO SCH (08:59)
[2016-12-31] MEDS: ASPIRIN EC 81 MG TABLET PO SCH (08:59)
[2016-12-31] MEDS: CARVEDILOL 25 MG TABLET PO SCH (08:59)
[2016-12-31] MEDS: traMADol 50 MG TABLET PO SCH (08:59)
[2016-12-31] MEDS ORDERED: LISINOPRIL 10 MG TABLET PO SCH (09:00)
--- NOTE | 2016-12-31 11:21 | Discharge Summary ---
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 SERVIN SUMMARY: Mr. Mcdonald, 56WM, was directly admitted from cardiology clinic for severe SUMNER, concerning for angina. History of known coronary artery disease ( status post PCI to proximal and mid LAD June 04, 2015) hypertension, dyslipidemia and obesity. Prior history of EF noted to be 50%. Underwent elective cardiac catheterization, performed by Dr. Lowe. Identified was the following: Conclusions: Angiographically no evidence of significant fixed coronary obstruction. Cardiomyopathy ejection fraction in the 20% range End diastolic pressure 26 mmHg Discussion and recommendations: Patient presents with dyspnea and has now got evidence of a nonischemic cardiomyopathy by LV gram. He was on appropriate medications and these will be intensified as tolerated. We will begin diuresis to see if we get his EDP down to the 18 range. Our findings have been reviewed with the patient and with Dr. Servin. Patient tolerated the procedure well without complication was returned to the telemetry unit in stable condition. DECEMBER 29, 2016: This morning, patient denies having chest pain, heaviness or tightness. Breathing has improved only a minimal amount but is no longer orthopneic. White blood cell count has normalized today we will continue with IV Levaquin for treatment of possible CAP. Patient's weight decreased 1 kg overnight, labs are stable. Patient's tachycardia has resolved this morning. Will increase beta coretta this morning as his blood pressure will allow us to do such, continue MARY ELLEN inhibitor. Will add Spironolactone as well. Triglycerides 549, LDL 147. Adding omega-3 twice daily, lipid-lowering agent as well. Unfortunately, patient is uninsured. We had a conversation of greater than 30 minutes today discussing the importance of securing insurance benefits. He may be a candidate for disability given the severity of his newly discovered cardiomyopathy. I have asked case management to discuss this with him. We will continue aggressive medical therapy and in 90 days, reevaluate with echocardiogram. He has been informed that should his cardiomyopathy not improved to an EF greater than 30%, he will need ICD. He and his mother verbalized understanding of this information. Also, patient has a sleep disorder concerning for severe obstructive sleep apnea. Once insurance benefits are obtained, he will need further workup from sleep medicine. Continue with diuresing and afterload reduction, treating his acute CHF and possible CAP. Hopefully, patient will continue to improve and be ready for discharge by the weekend. I will further discuss with Dr. Lowe and await additional recommendations. DECEMBER 30, 2016: Doing well overnight. Continues to be short of breath but this is better. Hypokalemic today. Will give a dose of potassium today. Blood pressure is suboptimally controlled and today I will increase his lisinopril giving an equivalent dose today to equal 40 mg daily. Hopefully, tomorrow he will be eligible for discharge. Will further discuss with Dr. Lowe and await additional recommendations. DECEMBER 31, 2016: Doing well this morning and anxious for release home. We had a greater than 45 minute discussion today regarding expectations. He is anxious to control his blood pressure and improve his health. He will be given a follow -up appoint with Dr. Servin in approximately 2 weeks with [facility]. He is working toward securing disability and/or insurance benefits. Having felt is met maximal medical therapy, he has been discharged home in stable condition. Discharge medications include the following: Aspirin 81 mg orally daily Coreg 25 mg orally twice daily Lasix 40 mg orally daily Lisinopril 30 mg orally daily Fish oil 2 g orally daily (OTC) Pravastatin 40 mg orally each evening Levaquin 500 mg orally daily 3 more doses - Time spent with patient Time with patient DS: Greater than 30 minutes Diagnosis - Discharge Diagnosis (1) Dyslipidemia Status: Chronic (2) Suspected sleep apnea Status: Chronic (3) Abnormal chest x-ray Status: Acute (4) Edema Status: Resolved (5) Congestive heart failure Status: Acute (6) Elevated troponin Status: Resolved (7) Coronary artery disease Status: Chronic (8) Uncontrolled hypertension Status: Chronic (9) NICM (nonischemic cardiomyopathy) Status: Acute Specialty Discharge - Follow Up or Referrals Follow up with: Kimberly Servin DO [Physician] - 2 Weeks ([facility]) Discharge Plan - Discharge Data Disposition: Disch To Home/Self Care Condition at Discharge: Stable Discharge Diet: heart healthy Activity: other (Post cath expectations) Hygiene: other (Post cath expectations) Weight Bearing at Discharge: other (Post cath expectations) Driving: other (Post cath expectations) Contact your physician if you experience:: fever over 101, Difficulty voiding, Redness or swelling, Nausea/Vomiting, Shortness of breath, Bleeding, pain uncontrolled by pain medications - Discharge Medications New Aspirin EC Tab 81 mg PO DAILY #30 tablet Carvedilol [Coreg] 25 mg PO BID #60 tablet Levofloxacin Tab [Levaquin Tab] 500 mg PO DAILY #3 tablet Lisinopril [Prinivil] 30 mg PO DAILY #30 tablet Pravastatin [Pravachol] 40 mg PO BEDTIME #30 tablet Furosemide Tab [Lasix Tab] 40 mg PO DAILY #30 tablet Continue Tramadol HCl [Tramadol Tab] 100 mg PO TID HYDROcodone/ACETAMIN 10-325 [[place] 10-325] 1 tablet PO Q4H PRN PRN Reason: Pain Nitroglycerin [Nitroglycerin SL Tab] 0.4 mg SL Q5M PRN #25 tablet PRN Reason: Chest Pain Discontinued Carvedilol [Coreg] 12.5 mg PO BID #60 tablet Lisinopril 20 mg PO DAILY - Follow Up or Referral - Forms/Instructions Instructions: Heart Failure (GEN), Left Heart Catheterization (DC), Hypertrophic Cardiomyopathy (GEN), Heart Healthy Diet (GEN) Additional Discharge Instructions: Please instruct patient to also get OTC: Fish Oil 2 g orally twice daily Exam - Constitutional Vitals: Period Temp Pulse Resp BP Sys/French Pulse Ox Last 24 Hr 96.2 F-97.6 F 72-92 16-20 108-125/57-79 91-100 Exam: General: [Appears well with no apparent distress.] [Pleasant and cooperative. ] [Appears comfortable.] HEENT: [PERRL, normocephalic, atraumatic. Mucous membranes moist. No jaundice noted. Conjunctiva moist and clear, sclerae anicteric] Neck: Difficult to assess for JVD due to habitus. No lymphadenopathy noted. No carotid bruit appreciated Cardiac: [Regular rate and rhythm.] [No obvious murmur rub or gallop.] Lungs: [Decreased sounds throughout. No wheezing or rales detected. ] Using oxygen intermittently Abdomen: Soft, bowel sounds normoactive. Nontender and nondistended. No abdominal bruit or thrill noted. No masses noted. Musculoskeletal: No fluid collection. Decreased range of motion is noted. Extremities: Right groin soft, free of hematoma or bruit. No clubbing, cyanosis noted. [ No edema noted.] Upper extremity pulses 2+. Lower extremity pulses 2+. Capillary refill less than 3 seconds. Skin: No unusual lesions or rashes. No skin breakdown appreciated. Neuro: Awake, alert and oriented 3. Moves all extremities well without hemiparesis or paralysis. No essential tremor is appreciated. Discharge Results Labs on day of discharge: Labs from last 24 hours 12/31/16 12/31/16 04:45 04:45 WBC 9.1 RBC 3.88 Hgb 11.1 L Hct 34.9 L MCV 89.9 MCH 29 MCHC 31.8 L RDW 16.8 Plt Count 291 MPV 11.2 Neut % (Auto) 59.7 Lymph % (Auto) 16.2 L [place] % (Auto) 10.5 Eos % (Auto) 2.0 Baso % (Auto) 0.2 Neut # (Auto) 5.4 Lymph # (Auto) 1.5 [place] # (Auto) 1.0 H Eos # (Auto) 0.2 Baso # (Auto) 0.0 Total Counted 100 Immature Gran % 11.4 Nucleated RBC % 0.4 Immature Gran # 1.03 Segmented Neutrophils 59 Band Neutrophils 1 Lymphocytes 20 Monocytes 8 Eosinophils 3 Metamyelocytes 3 Myelocytes 5 Promyelocytes 1 Nucleated RBCs # 0.04 Atypical Lymphocytes Few Atypic/Reactive Lymphs Hardboard Supervisor Smudge Cells Few Giant Platelets Few Immature Plt Fraction 0.0 Sodium 143 Potassium 3.9 Chloride 105 Carbon Dioxide 32 Anion Gap 9.9 BUN 24 H Creatinine 0.80 GFR Calculation 112 BUN/Creatinine Ratio 30.00 H Glucose 83 Calculated Osmolality 287.0 Calcium 8.3 L Magnesium 2.2 - Imaging and Cardiology Cardiology Procedure: report reviewed by Procedure: Chest x-ray: report reviewed by me DS: Provider Date of admission: 12/28/16 09:31 Primary care physician: . No PCP Attending physician on admission: Kimberly Servin DO Consults: 12/28/16 15:45 Consult to Cardiac Rehabilitation [CONS] Routine Reason for Cardiac Rehabilitation: Risk Factor Modification 12/29/16 11:26 Consult to Case Mgmt/Social Srvs [CONS] Routine Reason for Case Mgmt/Social Srvs: Other Consult Comment: Disability Discharging clinician: Michelle Maria NP Expected date of discharge: 12/31/16
[2016-12-31] MEDS: ENOXAPARIN 40 MG/0.4 ML SYRINGE SUBCUT SCH (13:06)
== END 2016-12-31 12:23 | disposition home or self-care (01) | DRG 287 ==
LOC: N.TELES → OBSVTOIN 09:31
PROVIDERS: ADMIT Internal Medicine Cardiovascular Disease; ATTEND Internal Medicine Cardiovascular Disease
PROC: CLCCHCL (ICD-10-PCS; 2016-12-28 15:15)

== ENCOUNTER 2017-06-08 11:06 | Inpatient (IN) ==
[2017-06-08] MEDS ORDERED: POTASSIUM BICARB EFFERVESCENT 25 MEQ TABLET PO ONE ×2 (11:32→11:54)
[2017-06-08] MEDS ORDERED: SODIUM CHLORIDE 0.9% 1,000 ML IV STA (11:32)
[2017-06-08] MEDS ORDERED: DEXAMETHASONE 4 MG/1 ML VIAL IV STA (11:32)
[2017-06-08] MEDS ORDERED: DEXAMETHASONE 10 MG/1 ML VIAL ONE (11:39)
[2017-06-08 12:07] LABS: Basophils % 0.3 % (0.0-0.8); Eosinophils # 0.2 10*3/uL (0.0-0.87); Eosinophils % 2.1 % (0.00-10.9); Hematocrit 33.1 VOL% (42.0-52.0); Hemoglobin 10.1 GM/DL (14.0-18.0); Immature Granulocytes % 6.3 %; Immature Granulocytes Absolute 0.64 #; Lymphocytes # 1.1 10*3/uL (1.4-4.0); Lymphocytes % 11.2 % (21.2-54.2); Mean Corpuscular HGB Conc 30.5 GM/DL (32-36); Mean Corpuscular Hemoglobin 27 PG (27-34); Mean Corpuscular Volume 88.3 FL (87-102); Mean Platelet Volume 10.8 FL (9.6-12.0); Monocytes # 1.3 10*3/uL (0.11-0.8); Neutrophils # 6.8 10*3/uL (1.4-7.4); Neutrophils % 67.1 % (38.7-73.9); Platelet Count 248 T/CUMM (130-400); Red Blood Count 3.75 MC/CUMM (3.8-5.5); Red Cell Distribution Width 15.5 % (9.3-17.3); White Blood Count 10.1 T/CUMM (4-12)
[2017-06-08 12:27] LABS: Band Neutrophils 1 % (0-10); Eosinophils 2 % (0-10); Hypochromasia 1+; Lymphocytes 6 % (20-55); Metamyelocytes 2 %; Microcytosis 1+; Segmented Neutrophils 74 % (50-85); Total Cells Counted 100
[2017-06-08 12:28] LABS: Platelet Estimate Normal
[2017-06-08 12:41] LABS: Alanine Aminotransferase 22 U/L (16-61); Alkaline Phosphatase 77 U/L (45-117); Aspartate Amino Transferase 12 U/L (0-37); Blood Urea Nitrogen 24 MG/DL (7-18); Calcium 9.3 MG/DL (8.5-10.1); Glucose 93 MG/DL (74-106); Osmolality,Calculated 280.5 MOS/KG (273-304); Sodium 139 MMOL/L (136-145)
[2017-06-08 12:42] LABS: Troponin I Only 0.064 NG/ML (0.00-0.045)
[2017-06-08] MEDS ORDERED: ONDANSETRON 4 MG/2 ML VIAL IV PRN (13:23)
[2017-06-08] MEDS ORDERED: ACETAMINOPHEN 325 MG TABLET PO PRN (13:23)
[2017-06-08] MEDS ORDERED: HYDROCORTISONE 100 MG VIAL IV STA (13:23)
[2017-06-08] MEDS ORDERED: HYDROCORTISONE 100 MG VIAL ONE (14:55)
[2017-06-08] MEDS ORDERED: INFLUENZA VIRUS VACCINE 0.5 ML SYRINGE IM ONE (17:41)
[2017-06-08] MEDS: SODIUM CHLORIDE 0.45% 1,000 ML IV SCH (17:55)
[2017-06-08] MEDS: ENOXAPARIN 40 MG/0.4 ML SYRINGE SUBCUT SCH (20:29)
[2017-06-08] MEDS: HYDROCORTISONE 100 MG VIAL IV SCH ×2 (20:29→20:35)
[2017-06-09] MEDS: SODIUM CHLORIDE 0.45% 1,000 ML IV SCH ×3 (03:37→21:55)
[2017-06-09] MEDS: HYDROCORTISONE 100 MG VIAL IV SCH ×3 (05:58→21:54)
[2017-06-09 06:31] LABS: Basophils % 0.2 % (0.0-0.8); Hematocrit 31.3 VOL% (42.0-52.0); Hemoglobin 9.5 GM/DL (14.0-18.0); Immature Granulocytes Absolute 0.31 #; Lymphocytes # 0.6 10*3/uL (1.4-4.0); Lymphocytes % 10.1 % (21.2-54.2); Mean Corpuscular HGB Conc 30.4 GM/DL (32-36); Mean Corpuscular Hemoglobin 27 PG (27-34); Mean Corpuscular Volume 89.9 FL (87-102); Monocytes # 0.2 10*3/uL (0.11-0.8); Monocytes % 2.7 % (1.7-12.7); Neutrophils # 5.1 10*3/uL (1.4-7.4); Platelet Count 249 T/CUMM (130-400); Red Blood Count 3.48 MC/CUMM (3.8-5.5); Red Cell Distribution Width 15.5 % (9.3-17.3); White Blood Count 6.3 T/CUMM (4-12)
[2017-06-09 06:51] LABS: Albumin 2.9 G/DL (3.4-5.0); Bilirubin,Total 0.7 MG/DL (0.2-1.0); Calcium 8.5 MG/DL (8.5-10.1); Osmolality,Calculated 288.4 MOS/KG (273-304); Total Protein 6.4 G/DL (6.4-8.3)
[2017-06-09] MEDS: ASPIRIN EC 81 MG TABLET PO SCH (09:11)
[2017-06-09] MEDS ORDERED: TRAMADOL HCL 100 MG PO PRN (11:50)
[2017-06-09] MEDS: traMADol 50 MG TABLET PO PRN ×2 (13:35→22:00)
[2017-06-09 17:39] LABS: Hepatitis B Core Ab Result Negative (Negative); Hepatitis B Surface Ag Quant < 0.10 Index; Hepatitis B Surface Ag Result Negative (Negative); Hepatitis C Virus Ab Quant 0.02 Index; Hepatitis C Virus Ab Result Negative (Negative)
[2017-06-09] MEDS: ENOXAPARIN 40 MG/0.4 ML SYRINGE SUBCUT SCH (21:55)
[2017-06-09] MEDS: CARVEDILOL 25 MG TABLET PO SCH (21:55)
[2017-06-10] MEDS ORDERED: COSYNTROPIN 0.25 MG VIAL IV ONE (08:00)
[2017-06-10] MEDS: predniSONE 20 MG TABLET PO SCH (08:29)
[2017-06-10] MEDS: FUROSEMIDE 40 MG TABLET PO SCH (08:29)
[2017-06-10] MEDS: LISINOPRIL 10 MG TABLET PO SCH (08:30)
[2017-06-10] MEDS: CARVEDILOL 25 MG TABLET PO SCH ×2 (08:30→20:25)
[2017-06-10] MEDS: ASPIRIN EC 81 MG TABLET PO SCH (08:30)
[2017-06-10] MEDS: traMADol 50 MG TABLET PO PRN ×2 (08:30→18:05)
[2017-06-10 08:41] LABS: Alanine Aminotransferase 21 U/L (16-61); Albumin 2.6 G/DL (3.4-5.0); Alkaline Phosphatase 61 U/L (45-117); Aspartate Amino Transferase 9 U/L (0-37); Bilirubin,Total < 0.39 MG/DL (0.2-1.0); Blood Urea Nitrogen 35 MG/DL (7-18); Glucose 109 MG/DL (74-106); Osmolality,Calculated 296.7 MOS/KG (273-304); Potassium 3.6 MMOL/L (3.5-5.1); Sodium 145 MMOL/L (136-145); Total Protein 5.4 G/DL (6.4-8.3)
[2017-06-10] MEDS ORDERED: predniSONE 5 MG TABLET PO SCH (09:00)
[2017-06-10] MEDS: ENOXAPARIN 40 MG/0.4 ML SYRINGE SUBCUT SCH (20:25)
[2017-06-11] MEDS: traMADol 50 MG TABLET PO PRN (00:27)
[2017-06-11 05:07] LABS: Basophils % 0.2 % (0.0-0.8); Eosinophils # 0.1 10*3/uL (0.0-0.87); Eosinophils % 0.8 % (0.00-10.9); Hematocrit 28.2 VOL% (42.0-52.0); Hemoglobin 8.8 GM/DL (14.0-18.0); Immature Granulocytes % 1.5 %; Immature Granulocytes Absolute 0.13 #; Lymphocytes # 1.3 10*3/uL (1.4-4.0); Lymphocytes % 14.7 % (21.2-54.2); Mean Corpuscular HGB Conc 31.2 GM/DL (32-36); Mean Corpuscular Hemoglobin 28 PG (27-34); Mean Corpuscular Volume 89.5 FL (87-102); Mean Platelet Volume 11.3 FL (9.6-12.0); Monocytes # 1.2 10*3/uL (0.11-0.8); Monocytes % 13.6 % (1.7-12.7); Neutrophils % 69.2 % (38.7-73.9); Platelet Count 244 T/CUMM (130-400); Red Blood Count 3.15 MC/CUMM (3.8-5.5); Red Cell Distribution Width 15.5 % (9.3-17.3); White Blood Count 8.7 T/CUMM (4-12)
[2017-06-11 05:36] LABS: Calcium 8.6 MG/DL (8.5-10.1); Osmolality,Calculated 296.4 MOS/KG (273-304); Potassium 3.8 MMOL/L (3.5-5.1)
[2017-06-11 07:26] VITALS: BP 125/68
[2017-06-11] MEDS: ASPIRIN EC 81 MG TABLET PO SCH (09:22)
[2017-06-11] MEDS: LISINOPRIL 10 MG TABLET PO SCH (09:22)
[2017-06-11] MEDS: FUROSEMIDE 40 MG TABLET PO SCH (09:22)
[2017-06-11] MEDS: predniSONE 20 MG TABLET PO SCH (09:23)
[2017-06-11] MEDS: CARVEDILOL 25 MG TABLET PO SCH (09:23)
== END 2017-06-11 10:25 | disposition home or self-care (01) | DRG 644 ==
LOC: N.ED 11:06 → N.EDINP 12:50 → SUATTDRO 12:50 → N.5E 17:08
PROVIDERS: ADMIT Internal Medicine; ATTEND Hospitalist

== ENCOUNTER 2018-01-11 15:43 | Inpatient (IN) ==
[2018-01-11] MEDS ORDERED: NITROGLYCERIN 2% OINT 1 INCH/GM PACK TOP STA (16:00)
[2018-01-11] MEDS ORDERED: FUROSEMIDE 100 MG/10 ML VIAL IV STA (16:00)
[2018-01-11 16:36] LABS: Basophils % 0.1 % (0.0-0.8); Hemoglobin 10.5 GM/DL (14.0-18.0); Immature Granulocytes % 2.4 %; Immature Granulocytes Absolute 0.47 #; Lymphocytes # 0.3 10*3/uL (1.4-4.0); Lymphocytes % 1.7 % (21.2-54.2); Mean Corpuscular Hemoglobin 24 PG (27-34); Mean Corpuscular Volume 79.2 FL (87-102); Mean Platelet Volume 11.1 FL (9.6-12.0); Monocytes # 2.2 10*3/uL (0.11-0.8); Monocytes % 10.9 % (1.7-12.7); NRBC # 1.33 10*3/uL; Neutrophils # 16.8 10*3/uL (1.4-7.4); Neutrophils % 84.9 % (38.7-73.9); Platelet Count 350 T/CUMM (130-400); Red Blood Count 4.42 MC/CUMM (3.8-5.5); Red Cell Distribution Width 16.6 % (9.3-17.3); White Blood Count 19.7 T/CUMM (4-12)
[2018-01-11 16:49] LABS: INR 1.2; PT Patient Result 12.9 SECS; Partial Thromboplastin Time 22.4 SECS (0-40)
[2018-01-11 16:54] LABS: Albumin 3.5 G/DL (3.4-5.0); Bilirubin,Total 1.8 MG/DL (0.2-1.0); Calcium 8.3 MG/DL (8.5-10.1); Osmolality,Calculated 295.5 MOS/KG (273-304); Potassium 4.3 MMOL/L (3.5-5.1); Total Protein 6.4 G/DL (6.4-8.3)
[2018-01-11 16:57] LABS: Band Neutrophils 4 % (0-10); Lymphocytes 10 % (20-55); Nucleated Red Blood Cells 12 (0-5); Segmented Neutrophils 79 % (50-85); Total Cells Counted 100
[2018-01-11 16:58] LABS: Anisocytosis Slight; Platelet Estimate Increased; Poikilocytosis 1+
[2018-01-11 17:34] LABS: Barbiturates Screen,Urine Negative (Negative); Benzodiazepines Screen,Urine Negative (Negative); Cannabinoid Screen,Urine Negative (Negative); Opiate Screen,Urine Negative (Negative); Phencyclidine Screen,Urine Negative (Negative)
[2018-01-11] MEDS ORDERED: NITROGLYCERIN SL 0.4 MG TABLET SL PRN (18:10)
[2018-01-11] MEDS: ONDANSETRON 4 MG/2 ML VIAL IV PRN (18:30)
[2018-01-11 18:59] LABS: Hepatitis A Ab IgM Quant 0.29 Index; Hepatitis A Ab IgM Result Negative (Negative); Hepatitis B Core IgM Quant 0.06 Index; Hepatitis B Core IgM Result Negative (Negative); Hepatitis B Surface Ag Quant < 0.10 Index; Hepatitis B Surface Ag Result Negative (Negative); Hepatitis C Virus Ab Quant < 0.02 Index; Hepatitis C Virus Ab Result Negative (Negative)
[2018-01-11 19:24] LABS: Apearance,Urine CLEAR (Clear); Bilirubin,Urine Negative (Negative); Blood, Urine Negative (Negative); Glucose,Urine (UA) Negative (Negative); Hyaline Casts,Urine 1 /LPF (0-3); Ketones,Urine Negative (Negative); Nitrite,Urine Negative (Negative); Protein,Urine Negative; Squamous Epithelial Cell,Urine Occasional /HPF (0-10); Urine Color Yellow (Yellow); Urine Urobilinogen < 2.0 EU/DL (0.2-1.0); WBC,Urine 2 /HPF (0-6)
[2018-01-11] MEDS: MORPHINE 4 MG/1 ML VIAL IV PRN (21:38)
[2018-01-11] MEDS: ENOXAPARIN 40 MG/0.4 ML SYRINGE SUBCUT SCH (21:38)
[2018-01-11] MEDS: HYDROCORTISONE 100 MG VIAL IV SCH (21:38)
[2018-01-11] MEDS: CARVEDILOL 25 MG TABLET PO SCH (21:39)
[2018-01-11] MEDS: SODIUM CHLORIDE 0.9% 1,000 ML IV SCH (21:39)
[2018-01-12 04:39] LABS: Basophils % 0.1 % (0.0-0.8); Hematocrit 31.6 VOL% (42.0-52.0); Hemoglobin 9.3 GM/DL (14.0-18.0); Immature Granulocytes % 2.5 %; Immature Granulocytes Absolute 0.34 #; Lymphocytes # 0.2 10*3/uL (1.4-4.0); Lymphocytes % 1.7 % (21.2-54.2); Mean Corpuscular HGB Conc 29.4 GM/DL (32-36); Mean Corpuscular Hemoglobin 23 PG (27-34); Mean Platelet Volume 11.6 FL (9.6-12.0); Monocytes # 1.2 10*3/uL (0.11-0.8); Monocytes % 8.7 % (1.7-12.7); NRBC # 0.22 10*3/uL; Platelet Count 246 T/CUMM (130-400); Red Cell Distribution Width 16.6 % (9.3-17.3); White Blood Count 13.8 T/CUMM (4-12)
[2018-01-12 05:15] LABS: Lymphocytes 1 % (20-55); Nucleated Red Blood Cells 4 (0-5); Platelet Estimate Adequate; Segmented Neutrophils 93 % (50-85); Total Cells Counted 100
[2018-01-12 05:16] LABS: Albumin 2.9 G/DL (3.4-5.0); Bilirubin,Total 1.6 MG/DL (0.2-1.0); Hypochromasia 1+; Osmolality,Calculated 295.4 MOS/KG (273-304); Ovalocytes Slight; Potassium 4.1 MMOL/L (3.5-5.1); Risk Ratio 6.44; Thyroid Stimulating Hormone 0.215 uIU/ml (0.358-3.74); Total Protein 5.5 G/DL (6.4-8.3); VLDL CHOLESTEROL 47.6 MG/DL
[2018-01-12] MEDS: HYDROCORTISONE 100 MG VIAL IV SCH ×3 (05:53→18:12)
[2018-01-12] MEDS ORDERED: LISINOPRIL 20 MG TABLET PO SCH (09:00)
[2018-01-12] MEDS: FOLIC ACID 1 MG TABLET PO SCH (09:45)
[2018-01-12] MEDS: ASPIRIN EC 81 MG TABLET PO SCH (09:45)
[2018-01-12] MEDS: CARVEDILOL 25 MG TABLET PO SCH ×2 (09:45→17:19)
[2018-01-12] MEDS: SODIUM CHLORIDE 0.9% 1,000 ML IV SCH (09:45)
[2018-01-12 10:18] LABS: Basophils % 0.1 % (0.0-0.8); Hematocrit 30.4 VOL% (42.0-52.0); Hemoglobin 9.3 GM/DL (14.0-18.0); Immature Granulocytes Absolute 0.32 #; Lymphocytes # 0.3 10*3/uL (1.4-4.0); Lymphocytes % 1.7 % (21.2-54.2); Mean Corpuscular HGB Conc 30.6 GM/DL (32-36); Mean Corpuscular Hemoglobin 23 PG (27-34); Mean Corpuscular Volume 76.4 FL (87-102); Mean Platelet Volume 11.4 FL (9.6-12.0); Monocytes # 1.2 10*3/uL (0.11-0.8); Monocytes % 7.4 % (1.7-12.7); NRBC # 0.26 10*3/uL; Neutrophils # 14.4 10*3/uL (1.4-7.4); Neutrophils % 88.8 % (38.7-73.9); Platelet Count 266 T/CUMM (130-400); Red Blood Count 3.98 MC/CUMM (3.8-5.5); Red Cell Distribution Width 16.5 % (9.3-17.3); White Blood Count 16.2 T/CUMM (4-12)
[2018-01-12 10:50] LABS: Anisocytosis 1+; Band Neutrophils 2 % (0-10); Lymphocytes 3 % (20-55); Nucleated Red Blood Cells 3 (0-5); Platelet Estimate Normal; Segmented Neutrophils 89 % (50-85); Total Cells Counted 100
[2018-01-12 10:51] LABS: Poikilocytosis Slight; Polychromasia Slight
[2018-01-12 12:45] LABS: INR 1.2; PT Patient Result 12.9 SECS
[2018-01-12] MEDS: ONDANSETRON 4 MG/2 ML VIAL IV PRN (15:58)
[2018-01-12] MEDS: ENOXAPARIN 40 MG/0.4 ML SYRINGE SUBCUT SCH (20:45)
[2018-01-12] MEDS: NYSTATIN 500,000 UNIT/5 ML UDCUP SWISH/SWAL SCH (20:45)
[2018-01-13] MEDS: MORPHINE 4 MG/1 ML VIAL IV PRN (00:45)
[2018-01-13] MEDS: SODIUM CHLORIDE 0.9% 1,000 ML IV SCH ×2 (01:01→12:31)
[2018-01-13] MEDS: HYDROCORTISONE 100 MG VIAL IV SCH ×3 (02:50→18:03)
[2018-01-13 06:43] LABS: Hematocrit 29.6 VOL% (42.0-52.0); Hemoglobin 8.8 GM/DL (14.0-18.0); Immature Granulocytes % 1.9 %; Lymphocytes # 0.2 10*3/uL (1.4-4.0); Mean Corpuscular HGB Conc 29.7 GM/DL (32-36); Mean Corpuscular Hemoglobin 23 PG (27-34); Mean Corpuscular Volume 78.3 FL (87-102); Mean Platelet Volume 11.8 FL (9.6-12.0); Monocytes # 1.2 10*3/uL (0.11-0.8); Monocytes % 7.6 % (1.7-12.7); Neutrophils % 89.5 % (38.7-73.9); Platelet Count 231 T/CUMM (130-400); Red Blood Count 3.78 MC/CUMM (3.8-5.5); Red Cell Distribution Width 16.6 % (9.3-17.3); White Blood Count 15.7 T/CUMM (4-12)
[2018-01-13 06:44] LABS: NRBC # 0.16 10*3/uL
[2018-01-13 07:04] LABS: Lymphocytes 1 % (20-55); Segmented Neutrophils 91 % (50-85); Total Cells Counted 100
[2018-01-13 07:05] LABS: Hypochromasia 1+; Platelet Estimate Adequate
[2018-01-13 07:15] LABS: Albumin 2.5 G/DL (3.4-5.0); Bilirubin,Total 1.1 MG/DL (0.2-1.0); Calcium 7.4 MG/DL (8.5-10.1); Osmolality,Calculated 293.3 MOS/KG (273-304); Potassium 3.8 MMOL/L (3.5-5.1); Total Protein 5.5 G/DL (6.4-8.3)
[2018-01-13] MEDS: FOLIC ACID 1 MG TABLET PO SCH (09:21)
[2018-01-13] MEDS: NYSTATIN 500,000 UNIT/5 ML UDCUP SWISH/SWAL SCH ×4 (09:21→20:09)
[2018-01-13] MEDS: CARVEDILOL 25 MG TABLET PO SCH ×2 (09:21→17:23)
[2018-01-13] MEDS: ASPIRIN EC 81 MG TABLET PO SCH (09:21)
[2018-01-13] MEDS: FLUCONAZOLE 100 MG TABLET PO SCH (11:19)
[2018-01-13] MEDS: LISINOPRIL 10 MG TABLET PO SCH (11:19)
[2018-01-13 11:29] LABS: Cancer Antigen 19-9 < 1.2 U/ML (0-37); Prostate Specific Antigen Diag 0.5 NG/ML (0-4)
[2018-01-13] MEDS: OMEGA 3 ACID ETHYL ESTERS 1 GM CAPSULE PO SCH ×2 (11:50→20:08)
[2018-01-13] MEDS: MYLANTA/LIDO VISC 2:1 300 ML BOTTLE SWISH/SWAL PRN ×2 (13:20→18:08)
[2018-01-13] MEDS: ENOXAPARIN 40 MG/0.4 ML SYRINGE SUBCUT SCH (20:09)
[2018-01-13] MEDS ORDERED: EZETIMIBE 10 MG TABLET PO SCH (21:00)
[2018-01-14] MEDS: HYDROCORTISONE 100 MG VIAL IV SCH ×2 (03:11→10:45)
[2018-01-14] MEDS: MYLANTA/LIDO VISC 2:1 300 ML BOTTLE SWISH/SWAL PRN ×2 (03:14→08:58)
[2018-01-14 05:57] LABS: Basophils % 0.1 % (0.0-0.8); Hematocrit 30.1 VOL% (42.0-52.0); Hemoglobin 8.7 GM/DL (14.0-18.0); Immature Granulocytes % 1.6 %; Immature Granulocytes Absolute 0.24 #; Lymphocytes # 0.3 10*3/uL (1.4-4.0); Lymphocytes % 1.8 % (21.2-54.2); Mean Corpuscular HGB Conc 28.9 GM/DL (32-36); Mean Corpuscular Hemoglobin 23 PG (27-34); Mean Corpuscular Volume 80.3 FL (87-102); Mean Platelet Volume 11.6 FL (9.6-12.0); Monocytes # 1.2 10*3/uL (0.11-0.8); Monocytes % 7.8 % (1.7-12.7); NRBC # 0.14 10*3/uL; Neutrophils # 13.3 10*3/uL (1.4-7.4); Neutrophils % 88.7 % (38.7-73.9); Platelet Count 221 T/CUMM (130-400); Red Blood Count 3.75 MC/CUMM (3.8-5.5); Red Cell Distribution Width 16.4 % (9.3-17.3)
[2018-01-14 06:21] LABS: Hypochromasia 1+; Lymphocytes 4 % (20-55); Microcytosis 1+; Nucleated Red Blood Cells 2 (0-5); Ovalocytes Few; Segmented Neutrophils 90 % (50-85); Total Cells Counted 100
[2018-01-14 06:24] LABS: Calcium 7.8 MG/DL (8.5-10.1); Osmolality,Calculated 290.1 MOS/KG (273-304); Potassium 3.9 MMOL/L (3.5-5.1)
[2018-01-14] MEDS: OMEGA 3 ACID ETHYL ESTERS 1 GM CAPSULE PO SCH (08:57)
[2018-01-14] MEDS: CARVEDILOL 25 MG TABLET PO SCH (08:57)
[2018-01-14] MEDS: ASPIRIN EC 81 MG TABLET PO SCH (08:57)
[2018-01-14] MEDS: NYSTATIN 500,000 UNIT/5 ML UDCUP SWISH/SWAL SCH ×2 (08:57→12:56)
[2018-01-14] MEDS: FLUCONAZOLE 100 MG TABLET PO SCH (08:57)
[2018-01-14] MEDS: LISINOPRIL 10 MG TABLET PO SCH (08:57)
[2018-01-14] MEDS: FOLIC ACID 1 MG TABLET PO SCH (08:58)
[2018-01-14 12:21] VITALS: BP 121/79
[2018-01-15 01:50] LABS: Aldolase 46.6 U/L (<7.7)
== END 2018-01-14 15:10 | disposition home or self-care (01) | DRG 682 ==
LOC: N.EDINP 15:43 → N.ED 15:43 → N.2E 18:36
PROVIDERS: ADMIT Internal Medicine; ATTEND Internal Medicine

== ENCOUNTER 2018-10-24 13:23 | Inpatient (IN) ==
[2018-10-24] MEDS ORDERED: SODIUM CHLORIDE 0.9% 1,000 ML IV STA (14:45)
[2018-10-24 14:59] LABS: Basophils % 0.1 % (0.0-0.8); Eosinophils % 0.1 % (0.00-10.9); Hematocrit 23.3 VOL% (42.0-52.0); Hemoglobin 6.5 GM/DL (14.0-18.0); Immature Granulocytes % 1.3 %; Immature Granulocytes Absolute 0.18 #; Lymphocytes # 0.4 10*3/uL (1.4-4.0); Lymphocytes % 2.6 % (21.2-54.2); Mean Corpuscular HGB Conc 27.9 GM/DL (32-36); Mean Corpuscular Volume 87.3 FL (87-102); Mean Platelet Volume 10.6 FL (9.6-12.0); Monocytes % 1.5 % (1.7-12.7); NRBC # 0.08 10*3/uL; Neutrophils % 94.4 % (38.7-73.9); Platelet Count 288 T/CUMM (130-400); Red Blood Count 2.67 MC/CUMM (3.8-5.5); White Blood Count 13.9 T/CUMM (4-12)
[2018-10-24] MEDS ORDERED: ACETAMINOPHEN 500 MG TABLET PO STA (15:25)
[2018-10-24] MEDS ORDERED: ACETAMINOPHEN 500 MG TABLET ONE (15:26)
[2018-10-24 15:27] LABS: Albumin 2.2 G/DL (3.4-5.0); Bilirubin,Total 0.5 MG/DL (0.2-1.0); Osmolality,Calculated 302.7 MOS/KG (273-304)
[2018-10-24] MEDS ORDERED: SODIUM CHLORIDE 0.9% 1,000 ML IV PRN (15:27)
[2018-10-24] MEDS ORDERED: SODIUM CHLORIDE 0.9% 2,250 ML IV ONE (15:29)
[2018-10-24] MEDS: PIPERACILLIN/TAZOBACTAM 3,375 MG in SODIUM CHLORIDE 0.9% 100 ML IV SCH (16:32)
[2018-10-24] MEDS: VANCOMYCIN INJ 1,000 MG in SODIUM CHLORIDE 0.9% 250 ML IV SCH (16:55)
[2018-10-24 17:06] LABS: Amorphous Crystals,Urine Occasional /HPF (Few); Apearance,Urine CLOUDY (Clear); Bilirubin,Urine Negative (Negative); Blood, Urine Negative (Negative); Glucose,Urine (UA) Negative (Negative); Hyaline Casts,Urine 9 /LPF (0-3); Ketones,Urine Negative (Negative); Mucus,Urine Occasional /LPF (Occasional); Nitrite,Urine Negative (Negative); Protein,Urine 30 MG/DL; RBC,Urine 3 /HPF (0-4); Squamous Epithelial Cell,Urine Occasional /HPF (0-10); Urine Specific Gravity 1.017 (1.001-1.035); Urine Urobilinogen < 2.0 EU/DL (0.2-1.0)
[2018-10-24 17:13] LABS: Urine Color Yellow (Yellow)
[2018-10-24] MEDS ORDERED: ONDANSETRON 4 MG/2 ML VIAL IV PRN (18:06)
[2018-10-24] MEDS ORDERED: ALBUTEROL 2.5 MG/3 ML NEB RESP TX PRN (18:06)
[2018-10-24] MEDS ORDERED: FUROSEMIDE 20 MG/2 ML VIAL IV PRN ×2 (18:08)
[2018-10-24 19:04] LABS: Band Neutrophils 7 % (0-10); Lymphocytes 3 % (20-55); Nucleated Red Blood Cells 1 (0-5); Segmented Neutrophils 89 % (50-85)
[2018-10-24 19:06] LABS: Anisocytosis Slight; Microcytosis 2+; Ovalocytes 1+; Polychromasia Few
[2018-10-24 19:07] LABS: Burr Cells 1+; Platelet Estimate Normal; Poikilocytosis 1+; Total Cells Counted 100
[2018-10-24 20:38] LABS: Hematocrit 23.3 VOL% (42.0-52.0); Hemoglobin 6.6 GM/DL (14.0-18.0)
[2018-10-24 20:59] LABS: PT Patient Result 10.7 SECS; Partial Thromboplastin Time 28.2 SECS (0-40)
[2018-10-24] MEDS ORDERED: NITROGLYCERIN SL 0.4 MG TABLET SL PRN (21:31)
[2018-10-24] MEDS ORDERED: traMADol 50 MG TABLET PO PRN (21:31)
[2018-10-24] MEDS: CARVEDILOL 25 MG TABLET PO SCH (22:04)
[2018-10-24] MEDS: HYDROCORTISONE 10 MG TABLET PO SCH (22:04)
[2018-10-24] MEDS: PANTOPRAZOLE INJ 200 MG in SODIUM CHLORIDE 0.9% 250 ML IV SCH (22:04)
[2018-10-24] MEDS: predniSONE 10 MG TABLET PO SCH (22:11)
[2018-10-25 02:03] LABS: Basophils % 0.1 % (0.0-0.8); Hematocrit 24.4 VOL% (42.0-52.0); Hemoglobin 7.3 GM/DL (14.0-18.0); Immature Granulocytes % 1.9 %; Immature Granulocytes Absolute 0.16 #; Lymphocytes # 0.1 10*3/uL (1.4-4.0); Lymphocytes % 1.3 % (21.2-54.2); Mean Corpuscular HGB Conc 29.9 GM/DL (32-36); Mean Corpuscular Volume 87.8 FL (87-102); Mean Platelet Volume 10.3 FL (9.6-12.0); Monocytes % 1.2 % (1.7-12.7); NRBC # 0.03 10*3/uL; Neutrophils % 95.5 % (38.7-73.9); Platelet Count 207 T/CUMM (130-400); Red Blood Count 2.78 MC/CUMM (3.8-5.5); Red Cell Distribution Width 18.7 % (9.3-17.3); White Blood Count 8.2 T/CUMM (4-12)
[2018-10-25 02:37] LABS: Calcium 7.6 MG/DL (8.5-10.1); Osmolality,Calculated 303.6 MOS/KG (273-304)
[2018-10-25 03:35] LABS: Anisocytosis Slight; Lymphocytes 2 % (20-55); Platelet Estimate Adequate; Segmented Neutrophils 95 % (50-85); Total Cells Counted 100
[2018-10-25] MEDS: PIPERACILLIN/TAZOBACTAM 3,375 MG in SODIUM CHLORIDE 0.9% 100 ML IV SCH (04:29)
[2018-10-25 06:44] LABS: Hematocrit 24.6 VOL% (42.0-52.0); Hemoglobin 7.4 GM/DL (14.0-18.0)
[2018-10-25] MEDS: ACETAMINOPHEN 325 MG TABLET PO PRN ×2 (08:55→21:57)
[2018-10-25] MEDS: predniSONE 10 MG TABLET PO SCH ×2 (08:55→21:49)
[2018-10-25] MEDS: CARVEDILOL 25 MG TABLET PO SCH ×2 (08:55→21:49)
[2018-10-25] MEDS: HYDROCORTISONE 10 MG TABLET PO SCH ×3 (08:55→21:49)
[2018-10-25] MEDS: MEROPENEM 1,000 MG in SODIUM CHLORIDE 0.9% 100 ML IV SCH ×2 (09:30→21:48)
[2018-10-25 11:50] LABS: Hematocrit 22.3 VOL% (42.0-52.0); Hemoglobin 6.5 GM/DL (14.0-18.0)
[2018-10-25] MEDS: VANCOMYCIN INJ 1,000 MG in SODIUM CHLORIDE 0.9% 250 ML IV SCH (15:57)
[2018-10-25] MEDS ORDERED: SODIUM CHLORIDE 0.9% 1,000 ML IV PRN (17:21)
[2018-10-26] MEDS: PANTOPRAZOLE INJ 200 MG in SODIUM CHLORIDE 0.9% 250 ML IV SCH ×2 (01:57→15:27)
[2018-10-26] MEDS: MEROPENEM 1,000 MG in SODIUM CHLORIDE 0.9% 100 ML IV SCH ×3 (04:30→21:16)
[2018-10-26 05:28] LABS: Basophils % 0.2 % (0.0-0.8); Hematocrit 30.2 VOL% (42.0-52.0); Hemoglobin 9.1 GM/DL (14.0-18.0); Immature Granulocytes % 8.3 %; Immature Granulocytes Absolute 0.43 #; Lymphocytes # 0.2 10*3/uL (1.4-4.0); Mean Corpuscular HGB Conc 30.1 GM/DL (32-36); Mean Corpuscular Volume 87.8 FL (87-102); Mean Platelet Volume 9.9 FL (9.6-12.0); Monocytes % 2.7 % (1.7-12.7); Neutrophils % 84.8 % (38.7-73.9); Platelet Count 219 T/CUMM (130-400); Red Blood Count 3.44 MC/CUMM (3.8-5.5); White Blood Count 5.2 T/CUMM (4-12)
[2018-10-26 05:46] LABS: Albumin 1.7 G/DL (3.4-5.0); Bilirubin,Total 0.5 MG/DL (0.2-1.0); Calcium 8.8 MG/DL (8.5-10.1); Osmolality,Calculated 300.4 MOS/KG (273-304); Total Protein 6.2 G/DL (6.4-8.3)
[2018-10-26 06:01] LABS: Lymphocytes 4 % (20-55); Platelet Estimate Adequate; Segmented Neutrophils 95 % (50-85); Total Cells Counted 100
[2018-10-26 06:02] LABS: Hypochromasia Slight; Microcytosis Slight
[2018-10-26] MEDS ORDERED: LIDOCAINE 1%/EPI INJ 20 ML VIAL ONE (08:21)
[2018-10-26] MEDS ORDERED: MORPHINE 4 MG/1 ML VIAL IV PRN (08:40)
[2018-10-26] MEDS ORDERED: PROPOFOL 200 MG/20 ML VIAL IV ONE ×2 (08:57→09:00)
[2018-10-26] MEDS ORDERED: SODIUM CHLORIDE 0.9% 100 ML IV ONE (08:58)
[2018-10-26] MEDS ORDERED: KETAMINE 500 MG/10 ML VIAL ONE (08:58)
[2018-10-26] MEDS ORDERED: MIDAZOLAM 2 MG/2 ML VIAL ONE (08:58)
[2018-10-26] MEDS ORDERED: METOPROLOL TARTRATE 5 MG/5 ML VIAL IV ONE (08:59)
[2018-10-26] MEDS ORDERED: LIDOCAINE 2% 5 ML VIAL ONE (09:00)
[2018-10-26] MEDS ORDERED: ETOMIDATE 20 MG/10 ML VIAL IV ONE (09:00)
[2018-10-26] MEDS: HYDROCORTISONE 10 MG TABLET PO SCH ×3 (09:46→21:12)
[2018-10-26] MEDS: CARVEDILOL 25 MG TABLET PO SCH ×2 (09:46→21:12)
[2018-10-26] MEDS: predniSONE 10 MG TABLET PO SCH ×2 (09:46→21:12)
[2018-10-26] MEDS ORDERED: FLUCONAZOLE 200 MG TABLET PO ONE (13:44)
[2018-10-26] MEDS: VANCOMYCIN INJ 1,000 MG in SODIUM CHLORIDE 0.9% 250 ML IV SCH (15:47)
[2018-10-26] MEDS: MORPHINE 4 MG/1 ML VIAL IV PRN (20:38)
[2018-10-26] MEDS: PANTOPRAZOLE 40 MG TABLET PO SCH (21:18)
[2018-10-27 04:19] LABS: Basophils % 0.2 % (0.0-0.8); Hematocrit 28.8 VOL% (42.0-52.0); Hemoglobin 8.8 GM/DL (14.0-18.0); Immature Granulocytes % 1.7 %; Immature Granulocytes Absolute 0.08 #; Lymphocytes # 0.2 10*3/uL (1.4-4.0); Lymphocytes % 4.1 % (21.2-54.2); Mean Corpuscular HGB Conc 30.6 GM/DL (32-36); Mean Platelet Volume 10.5 FL (9.6-12.0); Monocytes % 1.9 % (1.7-12.7); Neutrophils % 92.1 % (38.7-73.9); Platelet Count 197 T/CUMM (130-400); Red Blood Count 3.31 MC/CUMM (3.8-5.5); Red Cell Distribution Width 18.6 % (9.3-17.3); White Blood Count 4.6 T/CUMM (4-12)
[2018-10-27 04:40] LABS: Albumin 1.6 G/DL (3.4-5.0); Bilirubin,Total 0.6 MG/DL (0.2-1.0); Calcium 8.6 MG/DL (8.5-10.1); Osmolality,Calculated 297.6 MOS/KG (273-304)
[2018-10-27] MEDS: MEROPENEM 1,000 MG in SODIUM CHLORIDE 0.9% 100 ML IV SCH ×3 (05:00→20:56)
[2018-10-27 05:36] LABS: Lymphocytes 8 % (20-55); Platelet Estimate Normal; Segmented Neutrophils 91 % (50-85); Total Cells Counted 100
[2018-10-27] MEDS ORDERED: tiZANidine 4 MG TABLET PO PRN (08:28)
[2018-10-27] MEDS ORDERED: NIFEdipine 10 MG CAPSULE PO PRN (08:31)
[2018-10-27] MEDS: HYDROCORTISONE 10 MG TABLET PO SCH ×3 (09:12→20:42)
[2018-10-27] MEDS: LISINOPRIL 20 MG TABLET PO SCH (09:12)
[2018-10-27] MEDS: FLUCONAZOLE 100 MG TABLET PO SCH (09:12)
[2018-10-27] MEDS: predniSONE 10 MG TABLET PO SCH ×2 (09:13→20:43)
[2018-10-27] MEDS: PANTOPRAZOLE 40 MG TABLET PO SCH ×2 (09:13→20:43)
[2018-10-27] MEDS: CARVEDILOL 25 MG TABLET PO SCH ×2 (09:13→20:43)
[2018-10-27] MEDS: ASPIRIN EC 81 MG TABLET PO SCH (09:13)
[2018-10-27] MEDS ORDERED: LOPERAMIDE 2 MG CAPSULE PO PRN (14:53)
[2018-10-27] MEDS: VANCOMYCIN INJ 1,000 MG in SODIUM CHLORIDE 0.9% 250 ML IV SCH ×2 (16:25→16:27)
[2018-10-27] MEDS ORDERED: guaiFENesin 200 MG/10 ML UDCUP PO PRN (17:54)
[2018-10-27] MEDS: MORPHINE 4 MG/1 ML VIAL IV PRN (20:52)
[2018-10-28] MEDS: VANCOMYCIN INJ 1,000 MG in SODIUM CHLORIDE 0.9% 250 ML IV SCH ×2 (03:44→15:56)
[2018-10-28] MEDS: MEROPENEM 1,000 MG in SODIUM CHLORIDE 0.9% 100 ML IV SCH ×3 (05:12→21:44)
[2018-10-28 05:15] LABS: Basophils % 0.1 % (0.0-0.8); Hemoglobin 9.2 GM/DL (14.0-18.0); Immature Granulocytes % 1.5 %; Immature Granulocytes Absolute 0.11 #; Lymphocytes # 0.4 10*3/uL (1.4-4.0); Lymphocytes % 4.9 % (21.2-54.2); Mean Corpuscular HGB Conc 29.7 GM/DL (32-36); Mean Corpuscular Volume 89.1 FL (87-102); Mean Platelet Volume 10.2 FL (9.6-12.0); Monocytes % 1.2 % (1.7-12.7); Neutrophils % 92.3 % (38.7-73.9); Platelet Count 157 T/CUMM (130-400); Red Blood Count 3.48 MC/CUMM (3.8-5.5); Red Cell Distribution Width 18.4 % (9.3-17.3); White Blood Count 7.3 T/CUMM (4-12)
[2018-10-28 05:43] LABS: Lymphocytes 4 % (20-55); Microcytosis Slight; Ovalocytes Slight; Platelet Estimate Adequate; Segmented Neutrophils 96 % (50-85); Total Cells Counted 100
[2018-10-28 05:46] LABS: Calcium 8.8 MG/DL (8.5-10.1); Osmolality,Calculated 300.3 MOS/KG (273-304)
[2018-10-28] MEDS: PANTOPRAZOLE 40 MG TABLET PO SCH ×2 (08:44→21:40)
[2018-10-28] MEDS: FLUCONAZOLE 100 MG TABLET PO SCH (08:44)
[2018-10-28] MEDS: HYDROCORTISONE 10 MG TABLET PO SCH ×3 (08:44→21:40)
[2018-10-28] MEDS: LISINOPRIL 20 MG TABLET PO SCH (08:44)
[2018-10-28] MEDS: ASPIRIN EC 81 MG TABLET PO SCH (08:44)
[2018-10-28] MEDS: CARVEDILOL 25 MG TABLET PO SCH ×2 (08:44→21:40)
[2018-10-28] MEDS: predniSONE 10 MG TABLET PO SCH ×2 (08:45→21:40)
[2018-10-28] MEDS ORDERED: PANTOPRAZOLE 40 MG VIAL IV SCH (09:00)
[2018-10-28] MEDS: MORPHINE 4 MG/1 ML VIAL IV PRN (19:05)
[2018-10-28] MEDS: NYSTATIN 500,000 UNIT/5 ML UDCUP SWISH/SWAL SCH (21:44)
[2018-10-29] MEDS: MEROPENEM 1,000 MG in SODIUM CHLORIDE 0.9% 100 ML IV SCH ×3 (04:01→21:22)
[2018-10-29] MEDS: VANCOMYCIN INJ 1,000 MG in SODIUM CHLORIDE 0.9% 250 ML IV SCH ×2 (05:07→16:30)
[2018-10-29 05:38] LABS: Calcium 8.6 MG/DL (8.5-10.1); Osmolality,Calculated 298.4 MOS/KG (273-304)
[2018-10-29 05:43] LABS: Basophils % 0.2 % (0.0-0.8); Hematocrit 28.2 VOL% (42.0-52.0); Hemoglobin 8.4 GM/DL (14.0-18.0); Immature Granulocytes % 1.7 %; Lymphocytes # 0.3 10*3/uL (1.4-4.0); Lymphocytes % 5.4 % (21.2-54.2); Mean Corpuscular HGB Conc 29.8 GM/DL (32-36); Mean Corpuscular Volume 88.1 FL (87-102); Monocytes % 2.4 % (1.7-12.7); Neutrophils % 90.3 % (38.7-73.9); Red Cell Distribution Width 17.9 % (9.3-17.3); White Blood Count 5.9 T/CUMM (4-12)
[2018-10-29 05:46] LABS: Platelet Count 114 T/CUMM (130-400)
[2018-10-29 06:20] LABS: Band Neutrophils 2 % (0-10); Lymphocytes 6 % (20-55); Platelet Estimate Decreased; Segmented Neutrophils 89 % (50-85); Total Cells Counted 100
[2018-10-29] MEDS: predniSONE 10 MG TABLET PO SCH ×2 (09:33→21:16)
[2018-10-29] MEDS: NYSTATIN 500,000 UNIT/5 ML UDCUP SWISH/SWAL SCH ×4 (09:33→21:16)
[2018-10-29] MEDS: ASPIRIN EC 81 MG TABLET PO SCH (09:34)
[2018-10-29] MEDS: HYDROCORTISONE 10 MG TABLET PO SCH ×3 (09:34→21:16)
[2018-10-29] MEDS: FLUCONAZOLE 100 MG TABLET PO SCH (09:34)
[2018-10-29] MEDS: PANTOPRAZOLE 40 MG TABLET PO SCH ×2 (09:34→21:16)
[2018-10-29] MEDS: LISINOPRIL 20 MG TABLET PO SCH (09:34)
[2018-10-29] MEDS: CARVEDILOL 25 MG TABLET PO SCH ×2 (09:34→21:16)
[2018-10-29] MEDS: MYLANTA/LIDO VISC/NYST 180 ML BOTTLE SWISH/SPIT PRN (13:35)
[2018-10-29] MEDS: VANCOMYCIN INJ 750 MG in SODIUM CHLORIDE 0.9% 250 ML IV SCH (18:21)
[2018-10-30 04:40] LABS: Hematocrit 27.9 VOL% (42.0-52.0); Hemoglobin 8.4 GM/DL (14.0-18.0); Immature Granulocytes % 1.2 %; Immature Granulocytes Absolute 0.05 #; Lymphocytes # 0.3 10*3/uL (1.4-4.0); Lymphocytes % 7.7 % (21.2-54.2); Mean Corpuscular HGB Conc 30.1 GM/DL (32-36); Mean Platelet Volume 10.6 FL (9.6-12.0); Monocytes % 2.7 % (1.7-12.7); Neutrophils % 88.4 % (38.7-73.9); Platelet Count 110 T/CUMM (130-400); Red Blood Count 3.17 MC/CUMM (3.8-5.5); Red Cell Distribution Width 17.5 % (9.3-17.3); White Blood Count 4.1 T/CUMM (4-12)
[2018-10-30] MEDS: MEROPENEM 1,000 MG in SODIUM CHLORIDE 0.9% 100 ML IV SCH (05:00)
[2018-10-30 05:08] LABS: Calcium 8.3 MG/DL (8.5-10.1); Osmolality,Calculated 294.7 MOS/KG (273-304)
[2018-10-30] MEDS: VANCOMYCIN INJ 750 MG in SODIUM CHLORIDE 0.9% 250 ML IV SCH ×2 (05:49→17:49)
[2018-10-30] MEDS: CARVEDILOL 25 MG TABLET PO SCH ×2 (09:22→20:47)
[2018-10-30] MEDS: PANTOPRAZOLE 40 MG TABLET PO SCH ×2 (09:22→20:48)
[2018-10-30] MEDS: ASPIRIN EC 81 MG TABLET PO SCH (09:22)
[2018-10-30] MEDS: HYDROCORTISONE 10 MG TABLET PO SCH ×3 (09:22→20:48)
[2018-10-30] MEDS: predniSONE 10 MG TABLET PO SCH ×2 (09:22→20:48)
[2018-10-30] MEDS: LISINOPRIL 20 MG TABLET PO SCH (09:22)
[2018-10-30] MEDS: FLUCONAZOLE 100 MG TABLET PO SCH (09:22)
[2018-10-30] MEDS: NYSTATIN 500,000 UNIT/5 ML UDCUP SWISH/SWAL SCH ×4 (09:23→20:48)
[2018-10-30] MEDS: MYLANTA/LIDO VISC/NYST 180 ML BOTTLE SWISH/SPIT PRN (12:18)
[2018-10-30] MEDS: ACYCLOVIR 800 MG TABLET PO SCH ×2 (16:11→20:48)
[2018-10-31 04:41] LABS: Hemoglobin 7.9 GM/DL (14.0-18.0); Immature Granulocytes % 1.6 %; Immature Granulocytes Absolute 0.06 #; Lymphocytes # 0.4 10*3/uL (1.4-4.0); Lymphocytes % 11.3 % (21.2-54.2); Mean Corpuscular HGB Conc 30.4 GM/DL (32-36); Mean Corpuscular Volume 87.5 FL (87-102); Mean Platelet Volume 11.2 FL (9.6-12.0); Monocytes % 5.3 % (1.7-12.7); Neutrophils % 81.8 % (38.7-73.9); Platelet Count 132 T/CUMM (130-400); Red Blood Count 2.97 MC/CUMM (3.8-5.5); Red Cell Distribution Width 17.4 % (9.3-17.3); White Blood Count 3.8 T/CUMM (4-12)
[2018-10-31 04:49] LABS: Calcium 8.6 MG/DL (8.5-10.1); Osmolality,Calculated 293.7 MOS/KG (273-304)
[2018-10-31] MEDS: VANCOMYCIN INJ 750 MG in SODIUM CHLORIDE 0.9% 250 ML IV SCH ×2 (06:58→18:30)
[2018-10-31] MEDS: CARVEDILOL 25 MG TABLET PO SCH ×2 (09:03→20:29)
[2018-10-31] MEDS: ASPIRIN EC 81 MG TABLET PO SCH (09:03)
[2018-10-31] MEDS: ACYCLOVIR 800 MG TABLET PO SCH ×3 (09:03→20:29)
[2018-10-31] MEDS: LISINOPRIL 20 MG TABLET PO SCH (09:04)
[2018-10-31] MEDS: PANTOPRAZOLE 40 MG TABLET PO SCH ×2 (09:04→20:29)
[2018-10-31] MEDS: FLUCONAZOLE 100 MG TABLET PO SCH (09:04)
[2018-10-31] MEDS: HYDROCORTISONE 10 MG TABLET PO SCH ×3 (09:04→20:29)
[2018-10-31] MEDS: NYSTATIN 500,000 UNIT/5 ML UDCUP SWISH/SWAL SCH ×4 (09:04→20:29)
[2018-10-31] MEDS: predniSONE 10 MG TABLET PO SCH ×2 (09:04→20:29)
[2018-11-01] MEDS: VANCOMYCIN INJ 750 MG in SODIUM CHLORIDE 0.9% 250 ML IV SCH ×2 (01:14→18:10)
[2018-11-01 05:12] LABS: Basophils % 0.3 % (0.0-0.8); Hematocrit 25.3 VOL% (42.0-52.0); Hemoglobin 7.6 GM/DL (14.0-18.0); Immature Granulocytes % 3.7 %; Immature Granulocytes Absolute 0.14 #; Lymphocytes # 0.6 10*3/uL (1.4-4.0); Lymphocytes % 15.4 % (21.2-54.2); Mean Corpuscular Volume 87.5 FL (87-102); Mean Platelet Volume 11.4 FL (9.6-12.0); Monocytes % 6.9 % (1.7-12.7); NRBC # 0.02 10*3/uL; Neutrophils % 73.7 % (38.7-73.9); Platelet Count 167 T/CUMM (130-400); Red Blood Count 2.89 MC/CUMM (3.8-5.5); Red Cell Distribution Width 17.5 % (9.3-17.3); White Blood Count 3.8 T/CUMM (4-12)
[2018-11-01 06:06] LABS: Calcium 8.3 MG/DL (8.5-10.1); Osmolality,Calculated 292.6 MOS/KG (273-304)
[2018-11-01] MEDS: LISINOPRIL 20 MG TABLET PO SCH (08:06)
[2018-11-01] MEDS: NYSTATIN 500,000 UNIT/5 ML UDCUP SWISH/SWAL SCH ×4 (08:06→22:02)
[2018-11-01] MEDS: ASPIRIN EC 81 MG TABLET PO SCH (08:06)
[2018-11-01] MEDS: CARVEDILOL 25 MG TABLET PO SCH ×2 (08:07→22:02)
[2018-11-01] MEDS: PANTOPRAZOLE 40 MG TABLET PO SCH ×2 (08:07→22:02)
[2018-11-01] MEDS: HYDROCORTISONE 10 MG TABLET PO SCH ×3 (08:07→22:02)
[2018-11-01] MEDS: predniSONE 10 MG TABLET PO SCH ×2 (08:07→22:02)
[2018-11-01] MEDS: FLUCONAZOLE 100 MG TABLET PO SCH (08:07)
[2018-11-01] MEDS: ACYCLOVIR 800 MG TABLET PO SCH ×3 (08:09→22:02)
[2018-11-01] MEDS: SIMVASTATIN 20 MG TABLET PO SCH (22:02)
[2018-11-02 04:45] LABS: Basophils % 0.3 % (0.0-0.8); Hematocrit 27.3 VOL% (42.0-52.0); Hemoglobin 8.1 GM/DL (14.0-18.0); Immature Granulocytes % 7.8 %; Immature Granulocytes Absolute 0.29 #; Lymphocytes # 0.6 10*3/uL (1.4-4.0); Lymphocytes % 15.5 % (21.2-54.2); Mean Corpuscular HGB Conc 29.7 GM/DL (32-36); Mean Corpuscular Volume 87.8 FL (87-102); Mean Platelet Volume 11.1 FL (9.6-12.0); Monocytes % 10.4 % (1.7-12.7); NRBC # 0.05 10*3/uL; Platelet Count 234 T/CUMM (130-400); Red Blood Count 3.11 MC/CUMM (3.8-5.5); Red Cell Distribution Width 17.6 % (9.3-17.3); White Blood Count 3.7 T/CUMM (4-12)
[2018-11-02 04:54] LABS: Calcium 8.7 MG/DL (8.5-10.1); Osmolality,Calculated 291.6 MOS/KG (273-304)
[2018-11-02 06:09] LABS: Hypochromasia 1+; Lymphocytes 16 % (20-55); Metamyelocytes 1 %; Microcytosis 1+; Myelocytes 1 %; Nucleated Red Blood Cells 3 (0-5); Segmented Neutrophils 73 % (50-85); Total Cells Counted 100
[2018-11-02 06:10] LABS: Ovalocytes Slight
[2018-11-02 06:12] LABS: Platelet Estimate Normal
[2018-11-02] MEDS: HYDROCORTISONE 10 MG TABLET PO SCH ×3 (08:42→22:55)
[2018-11-02] MEDS: CARVEDILOL 25 MG TABLET PO SCH ×2 (08:42→22:55)
[2018-11-02] MEDS: ASPIRIN EC 81 MG TABLET PO SCH (08:42)
[2018-11-02] MEDS: FLUCONAZOLE 100 MG TABLET PO SCH (08:42)
[2018-11-02] MEDS: predniSONE 10 MG TABLET PO SCH ×2 (08:43→22:55)
[2018-11-02] MEDS: NYSTATIN 500,000 UNIT/5 ML UDCUP SWISH/SWAL SCH ×4 (08:43→22:56)
[2018-11-02] MEDS: LISINOPRIL 20 MG TABLET PO SCH (08:44)
[2018-11-02] MEDS: PANTOPRAZOLE 40 MG TABLET PO SCH ×2 (08:44→22:54)
[2018-11-02] MEDS: ACYCLOVIR 800 MG TABLET PO SCH ×3 (08:45→22:54)
[2018-11-02] MEDS: amLODIPine 5 MG TABLET PO SCH (11:58)
[2018-11-02] MEDS: VANCOMYCIN INJ 750 MG in SODIUM CHLORIDE 0.9% 250 ML IV SCH ×2 (12:37→13:34)
[2018-11-02] MEDS: SIMVASTATIN 20 MG TABLET PO SCH (22:54)
[2018-11-03 05:52] LABS: Basophils % 0.3 % (0.0-0.8); Hematocrit 26.9 VOL% (42.0-52.0); Hemoglobin 7.9 GM/DL (14.0-18.0); Immature Granulocytes % 12.7 %; Immature Granulocytes Absolute 0.37 #; Lymphocytes # 0.5 10*3/uL (1.4-4.0); Lymphocytes % 16.8 % (21.2-54.2); Mean Corpuscular HGB Conc 29.4 GM/DL (32-36); Mean Corpuscular Volume 89.7 FL (87-102); Mean Platelet Volume 11.6 FL (9.6-12.0); Monocytes % 13.7 % (1.7-12.7); NRBC # 0.07 10*3/uL; Neutrophils % 56.5 % (38.7-73.9); Platelet Count 280 T/CUMM (130-400); Red Cell Distribution Width 17.6 % (9.3-17.3); White Blood Count 2.9 T/CUMM (4-12)
[2018-11-03] MEDS: VANCOMYCIN INJ 750 MG in SODIUM CHLORIDE 0.9% 250 ML IV SCH (06:05)
[2018-11-03 06:33] LABS: Calcium 8.4 MG/DL (8.5-10.1); Osmolality,Calculated 291.6 MOS/KG (273-304)
[2018-11-03 06:54] LABS: Anisocytosis 1+; Band Neutrophils 4 % (0-10); Hypochromasia 1+; Lymphocytes 21 % (20-55); Metamyelocytes 2 %; Myelocytes 7 %; Nucleated Red Blood Cells 2 (0-5); Platelet Estimate Adequate; Segmented Neutrophils 55 % (50-85); Tear Drop Cells 1+; Total Cells Counted 100
[2018-11-03] MEDS: HYDROCORTISONE 10 MG TABLET PO SCH ×2 (09:18→16:23)
[2018-11-03] MEDS: LISINOPRIL 20 MG TABLET PO SCH (09:18)
[2018-11-03] MEDS: NYSTATIN 500,000 UNIT/5 ML UDCUP SWISH/SWAL SCH ×4 (09:19→21:28)
[2018-11-03] MEDS: CARVEDILOL 25 MG TABLET PO SCH ×2 (09:19→21:28)
[2018-11-03] MEDS: predniSONE 10 MG TABLET PO SCH ×2 (09:19→21:28)
[2018-11-03] MEDS: ASPIRIN EC 81 MG TABLET PO SCH (09:19)
[2018-11-03] MEDS: FLUCONAZOLE 100 MG TABLET PO SCH (09:19)
[2018-11-03] MEDS: PANTOPRAZOLE 40 MG TABLET PO SCH ×2 (09:19→21:28)
[2018-11-03] MEDS: ACYCLOVIR 800 MG TABLET PO SCH ×3 (09:19→21:28)
[2018-11-03] MEDS: amLODIPine 5 MG TABLET PO SCH (09:19)
[2018-11-03] MEDS: SIMVASTATIN 20 MG TABLET PO SCH (21:28)
[2018-11-04] MEDS: VANCOMYCIN INJ 750 MG in SODIUM CHLORIDE 0.9% 250 ML IV SCH ×2 (00:16→18:02)
[2018-11-04] MEDS: PANTOPRAZOLE 40 MG TABLET PO SCH ×2 (08:23→20:35)
[2018-11-04] MEDS: amLODIPine 5 MG TABLET PO SCH (08:23)
[2018-11-04] MEDS: LISINOPRIL 20 MG TABLET PO SCH (08:23)
[2018-11-04] MEDS: ASPIRIN EC 81 MG TABLET PO SCH (08:23)
[2018-11-04] MEDS: predniSONE 10 MG TABLET PO SCH ×2 (08:23→20:35)
[2018-11-04] MEDS: CARVEDILOL 25 MG TABLET PO SCH ×2 (08:23→20:35)
[2018-11-04] MEDS: NYSTATIN 500,000 UNIT/5 ML UDCUP SWISH/SWAL SCH ×4 (08:23→20:34)
[2018-11-04] MEDS: ACYCLOVIR 800 MG TABLET PO SCH ×3 (08:23→20:34)
[2018-11-04] MEDS: SIMVASTATIN 20 MG TABLET PO SCH (20:35)
[2018-11-05] MEDS: predniSONE 10 MG TABLET PO SCH ×2 (08:45→20:46)
[2018-11-05] MEDS: amLODIPine 5 MG TABLET PO SCH (08:45)
[2018-11-05] MEDS: ACYCLOVIR 800 MG TABLET PO SCH ×3 (08:45→20:46)
[2018-11-05] MEDS: NYSTATIN 500,000 UNIT/5 ML UDCUP SWISH/SWAL SCH ×4 (08:45→20:46)
[2018-11-05] MEDS: LISINOPRIL 20 MG TABLET PO SCH (08:45)
[2018-11-05] MEDS: CARVEDILOL 25 MG TABLET PO SCH ×2 (08:45→20:46)
[2018-11-05] MEDS: ASPIRIN EC 81 MG TABLET PO SCH (08:46)
[2018-11-05] MEDS: PANTOPRAZOLE 40 MG TABLET PO SCH ×2 (08:46→20:46)
[2018-11-05] MEDS: VANCOMYCIN INJ 750 MG in SODIUM CHLORIDE 0.9% 250 ML IV SCH (12:49)
[2018-11-05] MEDS: SIMVASTATIN 20 MG TABLET PO SCH (20:46)
[2018-11-06] MEDS: VANCOMYCIN INJ 750 MG in SODIUM CHLORIDE 0.9% 250 ML IV SCH (05:54)
[2018-11-06] MEDS: ASPIRIN EC 81 MG TABLET PO SCH (08:35)
[2018-11-06] MEDS: LISINOPRIL 20 MG TABLET PO SCH (08:36)
[2018-11-06] MEDS: ACYCLOVIR 800 MG TABLET PO SCH (08:37)
[2018-11-06] MEDS: predniSONE 10 MG TABLET PO SCH ×2 (08:37→22:30)
[2018-11-06] MEDS: PANTOPRAZOLE 40 MG TABLET PO SCH ×2 (08:37→22:29)
[2018-11-06] MEDS: CARVEDILOL 25 MG TABLET PO SCH ×2 (08:37→22:29)
[2018-11-06] MEDS: NYSTATIN 500,000 UNIT/5 ML UDCUP SWISH/SWAL SCH ×4 (08:37→22:30)
[2018-11-06 13:27] LABS: Basophils % 0.4 % (0.0-0.8); Hemoglobin 8.1 GM/DL (14.0-18.0); Immature Granulocytes % 31.8 %; Immature Granulocytes Absolute 1.42 #; Lymphocytes # 0.6 10*3/uL (1.4-4.0); Lymphocytes % 13.2 % (21.2-54.2); Mean Corpuscular HGB Conc 28.9 GM/DL (32-36); Mean Corpuscular Volume 90.6 FL (87-102); Mean Platelet Volume 10.2 FL (9.6-12.0); Monocytes % 18.6 % (1.7-12.7); Platelet Count 440 T/CUMM (130-400); Red Blood Count 3.09 MC/CUMM (3.8-5.5); Red Cell Distribution Width 17.9 % (9.3-17.3); White Blood Count 4.5 T/CUMM (4-12)
[2018-11-06] MEDS: amLODIPine 5 MG TABLET PO SCH (15:53)
[2018-11-06 18:27] LABS: Band Neutrophils 1 % (0-10); Lymphocytes 11 % (20-55); Metamyelocytes 3 %; Myelocytes 21 %; Nucleated Red Blood Cells 1 (0-5); Segmented Neutrophils 45 % (50-85)
[2018-11-06 18:31] LABS: Platelet Estimate Increased
[2018-11-06 18:33] LABS: Anisocytosis Slight; Poikilocytosis Slight; Polychromasia 1+
[2018-11-06 18:34] LABS: Ovalocytes Few
[2018-11-06 18:35] LABS: Tear Drop Cells Few
[2018-11-06 18:36] LABS: Hypochromasia 1+; Microcytosis Slight; Total Cells Counted 100
[2018-11-06] MEDS: SIMVASTATIN 20 MG TABLET PO SCH (22:30)
[2018-11-07] MEDS: VANCOMYCIN INJ 750 MG in SODIUM CHLORIDE 0.9% 250 ML IV SCH ×2 (00:39→18:02)
[2018-11-07 05:16] LABS: Calcium 8.3 MG/DL (8.5-10.1); Osmolality,Calculated 291.6 MOS/KG (273-304)
[2018-11-07] MEDS: ASPIRIN EC 81 MG TABLET PO SCH (08:48)
[2018-11-07] MEDS: CARVEDILOL 25 MG TABLET PO SCH ×2 (08:48→22:24)
[2018-11-07] MEDS: LISINOPRIL 20 MG TABLET PO SCH (08:48)
[2018-11-07] MEDS: PANTOPRAZOLE 40 MG TABLET PO SCH ×2 (08:48→22:24)
[2018-11-07] MEDS: amLODIPine 5 MG TABLET PO SCH (08:49)
[2018-11-07] MEDS: NYSTATIN 500,000 UNIT/5 ML UDCUP SWISH/SWAL SCH ×4 (08:49→22:26)
[2018-11-07] MEDS: predniSONE 10 MG TABLET PO SCH ×2 (08:49→22:24)
[2018-11-07] MEDS: SIMVASTATIN 20 MG TABLET PO SCH (22:24)
[2018-11-08 05:28] LABS: Calcium 8.6 MG/DL (8.5-10.1); Osmolality,Calculated 291.6 MOS/KG (273-304)
[2018-11-08] MEDS: LISINOPRIL 20 MG TABLET PO SCH (08:09)
[2018-11-08] MEDS: CARVEDILOL 25 MG TABLET PO SCH ×2 (08:09→20:55)
[2018-11-08] MEDS: NYSTATIN 500,000 UNIT/5 ML UDCUP SWISH/SWAL SCH ×4 (08:09→20:55)
[2018-11-08] MEDS: ASPIRIN EC 81 MG TABLET PO SCH (08:09)
[2018-11-08] MEDS: amLODIPine 5 MG TABLET PO SCH (08:09)
[2018-11-08] MEDS: PANTOPRAZOLE 40 MG TABLET PO SCH ×2 (08:10→20:55)
[2018-11-08] MEDS: predniSONE 10 MG TABLET PO SCH ×2 (08:10→20:55)
[2018-11-08] MEDS: VANCOMYCIN INJ 750 MG in SODIUM CHLORIDE 0.9% 250 ML IV SCH (12:30)
[2018-11-08] MEDS ORDERED: DALBAVANCIN 1,500 MG in DEXTROSE 5% 500 ML IV ONE (14:32)
[2018-11-08] MEDS: SIMVASTATIN 20 MG TABLET PO SCH ×2 (20:55→20:56)
[2018-11-09] MEDS: VANCOMYCIN INJ 750 MG in SODIUM CHLORIDE 0.9% 250 ML IV SCH (06:01)
[2018-11-09 06:39] LABS: Calcium 8.8 MG/DL (8.5-10.1); Osmolality,Calculated 293.6 MOS/KG (273-304)
[2018-11-09 07:40] VITALS: BP 169/90
[2018-11-09] MEDS: ASPIRIN EC 81 MG TABLET PO SCH (08:42)
[2018-11-09] MEDS: LISINOPRIL 20 MG TABLET PO SCH (08:42)
[2018-11-09] MEDS: amLODIPine 5 MG TABLET PO SCH (08:43)
[2018-11-09] MEDS: predniSONE 10 MG TABLET PO SCH (08:43)
[2018-11-09] MEDS: PANTOPRAZOLE 40 MG TABLET PO SCH (08:43)
[2018-11-09] MEDS: CARVEDILOL 25 MG TABLET PO SCH (08:43)
[2018-11-09] MEDS: NYSTATIN 500,000 UNIT/5 ML UDCUP SWISH/SWAL SCH (08:44)
[2018-11-09] MEDS ORDERED: amLODIPine 5 MG TABLET PO SCH (09:53)
== END 2018-11-09 11:40 | disposition home or self-care (01) | DRG 853 ==
LOC: N.ED 13:23 → SUATTDRO 18:02 → N.EDINP 18:02 → N.CC 20:28 → N.2E 10-27 16:23
PROVIDERS: ADMIT Internal Medicine; ATTEND Hospitalist

== ENCOUNTER 2019-01-25 10:41 | Inpatient (IN) ==
[2019-01-25 11:38] LABS: Basophils % 0.1 % (0.0-0.8); Eosinophils % 0.2 % (0.00-10.9); Hematocrit 24.5 VOL% (42.0-52.0); Immature Granulocytes % 4.8 %; Immature Granulocytes Absolute 0.65 #; Lymphocytes # 0.9 10*3/uL (1.4-4.0); Lymphocytes % 6.4 % (21.2-54.2); Mean Corpuscular HGB Conc 28.2 GM/DL (32-36); Mean Corpuscular Volume 80.3 FL (87-102); Mean Platelet Volume 10.4 FL (9.6-12.0); Monocytes % 4.8 % (1.7-12.7); Neutrophils % 83.7 % (38.7-73.9); Platelet Count 417 T/CUMM (130-400); Red Blood Count 3.05 MC/CUMM (3.8-5.5); Red Cell Distribution Width 18.4 % (9.3-17.3); White Blood Count 13.6 T/CUMM (4-12)
[2019-01-25 11:40] LABS: Hemoglobin 6.9 GM/DL (14.0-18.0)
[2019-01-25 11:51] LABS: Hypochromasia 1+; Lymphocytes 1 % (20-55); Ovalocytes Slight; Platelet Estimate Adequate; Segmented Neutrophils 95 % (50-85); Total Cells Counted 100
[2019-01-25 12:02] LABS: Albumin 3.1 G/DL (3.4-5.0); Bilirubin,Total 0.7 MG/DL (0.2-1.0); Calcium 9.4 MG/DL (8.5-10.1); Osmolality,Calculated 295.1 MOS/KG (273-304); Total Protein 7.1 G/DL (6.4-8.3)
[2019-01-25] MEDS ORDERED: SODIUM CHLORIDE 0.9% 1,000 ML IV STA (12:45)
[2019-01-25] MEDS ORDERED: VANCOMYCIN INJ 1,000 MG in SODIUM CHLORIDE 0.9% 250 ML IV ONE ×2 (12:45→13:00)
[2019-01-25] MEDS ORDERED: VANCOMYCIN 1,000 MG VIAL ONE (12:54)
[2019-01-25] MEDS ORDERED: SODIUM CHLORIDE 0.9% 500 ML IV STA (13:10)
[2019-01-25 13:21] LABS: Apearance,Urine CLEAR (Clear); Bilirubin,Urine Negative (Negative); Blood, Urine Negative (Negative); Glucose,Urine (UA) Negative (Negative); Hyaline Casts,Urine 7 /LPF (0-3); Ketones,Urine Negative (Negative); Mucus,Urine Occasional /LPF (Occasional); Nitrite,Urine Negative (Negative); Protein,Urine Negative; RBC,Urine 2 /HPF (0-4); Squamous Epithelial Cell,Urine Occasional /HPF (0-10); Urine Color Yellow (Yellow); Urine Specific Gravity 1.015 (1.001-1.035); Urine Urobilinogen < 2.0 EU/DL (0.2-1.0); WBC,Urine 12 /HPF (0-6)
[2019-01-25] MEDS ORDERED: diphenhydrAMINE CAP 25 MG CAPSULE PO PRN (14:41)
[2019-01-25] MEDS ORDERED: DOCUSATE SODIUM 100 MG CAPSULE PO PRN (14:41)
[2019-01-25] MEDS ORDERED: BISACODYL 5 MG TABLET PO PRN (14:41)
[2019-01-25] MEDS ORDERED: ONDANSETRON 4 MG/2 ML VIAL IV PRN (14:41)
[2019-01-25] MEDS ORDERED: LACTULOSE 20 GM/30 ML UDCUP PO PRN (14:41)
[2019-01-25] MEDS ORDERED: ZALEPLON 5 MG CAPSULE PO PRN (14:41)
[2019-01-25] MEDS ORDERED: SODIUM CHLORIDE 0.9% 1,000 ML IV PRN ×2 (15:38→17:01)
[2019-01-25] MEDS ORDERED: CANNABIDIOL PO PRN (15:41)
[2019-01-25] MEDS ORDERED: EXTRACT PO PRN (15:41)
[2019-01-25 18:18] LABS: % Iron Saturation 9.5 % (18-50); Ferritin 57.5 ng/ml (26-388)
[2019-01-25] MEDS: SODIUM CHLORIDE 0.9% 1,000 ML IV SCH (18:23)
[2019-01-25] MEDS ORDERED: CARVEDILOL 25 MG TABLET PO SCH (21:00)
[2019-01-25] MEDS ORDERED: PANTOPRAZOLE 40 MG TABLET PO SCH (21:00)
[2019-01-25] MEDS ORDERED: HYDROCORTISONE 10 MG TABLET PO SCH (21:00)
[2019-01-25] MEDS: PANTOPRAZOLE 40 MG VIAL IV SCH (21:07)
[2019-01-25] MEDS: predniSONE 10 MG TABLET PO SCH (21:08)
[2019-01-25] MEDS: cefTRIAXone 1,000 MG in SYRINGE 1 EACH IV SCH (21:08)
[2019-01-26 04:52] LABS: Basophils % 0.2 % (0.0-0.8); Eosinophils % 0.1 % (0.00-10.9); Hematocrit 30.8 VOL% (42.0-52.0); Immature Granulocytes % 3.1 %; Immature Granulocytes Absolute 0.34 #; Lymphocytes # 0.8 10*3/uL (1.4-4.0); Lymphocytes % 6.9 % (21.2-54.2); Mean Corpuscular HGB Conc 29.2 GM/DL (32-36); Mean Corpuscular Volume 83.7 FL (87-102); Mean Platelet Volume 10.3 FL (9.6-12.0); Monocytes % 4.6 % (1.7-12.7); Neutrophils % 85.1 % (38.7-73.9); Platelet Count 348 T/CUMM (130-400); Red Blood Count 3.68 MC/CUMM (3.8-5.5); Red Cell Distribution Width 17.9 % (9.3-17.3); White Blood Count 11.1 T/CUMM (4-12)
[2019-01-26 05:29] LABS: Albumin 2.6 G/DL (3.4-5.0); Bilirubin,Total 0.4 MG/DL (0.2-1.0); Calcium 9.1 MG/DL (8.5-10.1); Osmolality,Calculated 289.4 MOS/KG (273-304); Total Protein 6.8 G/DL (6.4-8.3)
[2019-01-26] MEDS ORDERED: PANTOPRAZOLE 40 MG VIAL IV SCH (09:00)
[2019-01-26] MEDS ORDERED: methylPREDNISolone SOD SUC 40 MG/1 ML VIAL IV SCH (09:00)
[2019-01-26] MEDS ORDERED: predniSONE 5 MG TABLET PO SCH (09:00)
[2019-01-26] MEDS ORDERED: PANTOPRAZOLE 40 MG TABLET PO SCH (09:00)
[2019-01-26] MEDS ORDERED: ASPIRIN EC 81 MG TABLET PO SCH (09:00)
[2019-01-26] MEDS: predniSONE 10 MG TABLET PO SCH ×2 (09:29→20:15)
[2019-01-26] MEDS: PANTOPRAZOLE 40 MG VIAL IV SCH ×2 (09:30→20:15)
[2019-01-26] MEDS ORDERED: SODIUM POLYSTYRENE SULFATE 15 GM/60 ML BOTTLE PO ONE (10:30)
[2019-01-26] MEDS: VANCOMYCIN INJ 1,250 MG in SODIUM CHLORIDE 0.9% 250 ML IV SCH (10:37)
[2019-01-26] MEDS: SODIUM CHLORIDE 0.9% 1,000 ML IV SCH ×2 (15:47→15:48)
[2019-01-26] MEDS: cefTRIAXone 1,000 MG in SYRINGE 1 EACH IV SCH (20:15)
[2019-01-27] MEDS: VANCOMYCIN INJ 1,250 MG in SODIUM CHLORIDE 0.9% 250 ML IV SCH ×2 (03:58→21:55)
[2019-01-27 05:03] LABS: Basophils % 0.3 % (0.0-0.8); Hematocrit 30.2 VOL% (42.0-52.0); Hemoglobin 8.9 GM/DL (14.0-18.0); Immature Granulocytes % 3.9 %; Immature Granulocytes Absolute 0.43 #; Lymphocytes # 0.8 10*3/uL (1.4-4.0); Lymphocytes % 6.9 % (21.2-54.2); Mean Corpuscular HGB Conc 29.5 GM/DL (32-36); Mean Corpuscular Volume 84.6 FL (87-102); Mean Platelet Volume 10.1 FL (9.6-12.0); Monocytes % 5.8 % (1.7-12.7); Neutrophils % 83.1 % (38.7-73.9); Platelet Count 322 T/CUMM (130-400); Red Blood Count 3.57 MC/CUMM (3.8-5.5); White Blood Count 10.9 T/CUMM (4-12)
[2019-01-27 05:19] LABS: Calcium 9.1 MG/DL (8.5-10.1); Osmolality,Calculated 288.3 MOS/KG (273-304)
[2019-01-27] MEDS: SODIUM CHLORIDE 0.9% 1,000 ML IV SCH ×2 (05:21→21:46)
[2019-01-27] MEDS: predniSONE 10 MG TABLET PO SCH ×2 (08:38→21:47)
[2019-01-27] MEDS: PANTOPRAZOLE 40 MG VIAL IV SCH (08:39)
[2019-01-27] MEDS ORDERED: SODIUM POLYSTYRENE SULFATE 15 GM/60 ML BOTTLE PO STA (11:56)
[2019-01-27] MEDS: amLODIPine 5 MG TABLET PO SCH ×2 (12:36→21:54)
[2019-01-27] MEDS: PANTOPRAZOLE 40 MG TABLET PO SCH (18:05)
[2019-01-27] MEDS: cefTRIAXone 1,000 MG in SYRINGE 1 EACH IV SCH (21:47)
[2019-01-27] MEDS: traZODone 50 MG TABLET PO PRN (21:48)
[2019-01-28 05:22] LABS: Basophils % 0.2 % (0.0-0.8); Eosinophils % 0.1 % (0.00-10.9); Hematocrit 28.1 VOL% (42.0-52.0); Hemoglobin 8.3 GM/DL (14.0-18.0); Immature Granulocytes % 4.8 %; Immature Granulocytes Absolute 0.46 #; Lymphocytes # 0.7 10*3/uL (1.4-4.0); Lymphocytes % 7.2 % (21.2-54.2); Mean Corpuscular HGB Conc 29.5 GM/DL (32-36); Mean Corpuscular Volume 84.9 FL (87-102); Mean Platelet Volume 10.4 FL (9.6-12.0); Monocytes % 6.5 % (1.7-12.7); Neutrophils % 81.2 % (38.7-73.9); Platelet Count 280 T/CUMM (130-400); Red Blood Count 3.31 MC/CUMM (3.8-5.5); Red Cell Distribution Width 18.3 % (9.3-17.3); White Blood Count 9.6 T/CUMM (4-12)
[2019-01-28 05:41] LABS: Calcium 8.5 MG/DL (8.5-10.1); Osmolality,Calculated 288.8 MOS/KG (273-304)
[2019-01-28] MEDS: PANTOPRAZOLE 40 MG TABLET PO SCH ×2 (06:18→18:32)
[2019-01-28] MEDS: amLODIPine 5 MG TABLET PO SCH ×2 (08:51→20:43)
[2019-01-28] MEDS: predniSONE 10 MG TABLET PO SCH ×2 (08:52→20:43)
[2019-01-28] MEDS: VANCOMYCIN INJ 1,250 MG in SODIUM CHLORIDE 0.9% 250 ML IV SCH (15:31)
[2019-01-28] MEDS: SODIUM CHLORIDE 0.9% 1,000 ML IV SCH (15:35)
[2019-01-28] MEDS: cefTRIAXone 1,000 MG in SYRINGE 1 EACH IV SCH (20:44)
[2019-01-29] MEDS: SODIUM CHLORIDE 0.9% 1,000 ML IV SCH ×2 (04:51→15:24)
[2019-01-29 05:46] LABS: Basophils % 0.4 % (0.0-0.8); Hematocrit 30.1 VOL% (42.0-52.0); Hemoglobin 8.8 GM/DL (14.0-18.0); Immature Granulocytes % 5.5 %; Immature Granulocytes Absolute 0.47 #; Lymphocytes # 0.7 10*3/uL (1.4-4.0); Lymphocytes % 8.7 % (21.2-54.2); Mean Corpuscular HGB Conc 29.2 GM/DL (32-36); Mean Corpuscular Volume 85.3 FL (87-102); Mean Platelet Volume 10.4 FL (9.6-12.0); Monocytes % 6.4 % (1.7-12.7); Platelet Count 301 T/CUMM (130-400); Red Blood Count 3.53 MC/CUMM (3.8-5.5); Red Cell Distribution Width 18.4 % (9.3-17.3); White Blood Count 8.5 T/CUMM (4-12)
[2019-01-29 06:02] LABS: Calcium 8.9 MG/DL (8.5-10.1); Osmolality,Calculated 291.7 MOS/KG (273-304)
[2019-01-29] MEDS: PANTOPRAZOLE 40 MG TABLET PO SCH ×2 (06:19→18:08)
[2019-01-29 07:04] LABS: Anisocytosis 1+; Band Neutrophils 2 % (0-10); Hypochromasia Slight; Lymphocytes 12 % (20-55); Metamyelocytes 1 %; Microcytosis 1+; Myelocytes 1 %; Segmented Neutrophils 79 % (50-85); Tear Drop Cells Few; Total Cells Counted 100
[2019-01-29 07:05] LABS: Ovalocytes Few
[2019-01-29 07:08] LABS: Platelet Estimate Normal
[2019-01-29] MEDS: predniSONE 10 MG TABLET PO SCH ×2 (09:06→20:40)
[2019-01-29] MEDS: amLODIPine 5 MG TABLET PO SCH ×2 (09:07→20:40)
[2019-01-29] MEDS: VANCOMYCIN INJ 1,250 MG in SODIUM CHLORIDE 0.9% 250 ML IV SCH ×2 (10:17→15:24)
[2019-01-29] MEDS ORDERED: CARVEDILOL 25 MG TABLET PO ONE (16:44)
[2019-01-29] MEDS: LISINOPRIL 20 MG TABLET PO SCH (17:05)
[2019-01-29] MEDS: cefTRIAXone 1,000 MG in SYRINGE 1 EACH IV SCH (20:41)
[2019-01-30] MEDS: PANTOPRAZOLE 40 MG TABLET PO SCH ×2 (05:59→19:00)
[2019-01-30] MEDS: CARVEDILOL 25 MG TABLET PO SCH ×2 (08:51→21:09)
[2019-01-30] MEDS: LISINOPRIL 20 MG TABLET PO SCH (08:51)
[2019-01-30] MEDS: amLODIPine 5 MG TABLET PO SCH ×2 (08:51→21:09)
[2019-01-30] MEDS: predniSONE 10 MG TABLET PO SCH ×2 (08:51→21:09)
[2019-01-30] MEDS: SODIUM CHLORIDE 0.9% 1,000 ML IV SCH (08:57)
[2019-01-30] MEDS: VANCOMYCIN INJ 1,250 MG in SODIUM CHLORIDE 0.9% 250 ML IV SCH (15:38)
[2019-01-30] MEDS: traZODone 50 MG TABLET PO PRN (21:10)
[2019-01-31] MEDS: SODIUM CHLORIDE 0.9% 1,000 ML IV SCH (06:09)
[2019-01-31] MEDS: PANTOPRAZOLE 40 MG TABLET PO SCH ×2 (06:09→18:36)
[2019-01-31] MEDS: amLODIPine 5 MG TABLET PO SCH ×2 (10:05→20:34)
[2019-01-31] MEDS: LISINOPRIL 20 MG TABLET PO SCH (10:05)
[2019-01-31] MEDS: CARVEDILOL 25 MG TABLET PO SCH ×2 (10:06→20:34)
[2019-01-31] MEDS: predniSONE 10 MG TABLET PO SCH ×2 (10:06→20:34)
[2019-01-31] MEDS: VANCOMYCIN INJ 1,250 MG in SODIUM CHLORIDE 0.9% 250 ML IV SCH (15:44)
[2019-01-31] MEDS: traZODone 50 MG TABLET PO PRN (20:34)
[2019-02-01] MEDS: PANTOPRAZOLE 40 MG TABLET PO SCH ×2 (06:07→20:32)
[2019-02-01 06:09] LABS: Calcium 8.6 MG/DL (8.5-10.1); Osmolality,Calculated 295.6 MOS/KG (273-304)
[2019-02-01] MEDS: LISINOPRIL 20 MG TABLET PO SCH (09:47)
[2019-02-01] MEDS: predniSONE 10 MG TABLET PO SCH ×2 (09:47→20:32)
[2019-02-01] MEDS: CARVEDILOL 25 MG TABLET PO SCH ×2 (09:47→20:32)
[2019-02-01] MEDS: SODIUM CHLORIDE 0.9% 1,000 ML IV SCH ×2 (09:47→22:47)
[2019-02-01] MEDS: amLODIPine 5 MG TABLET PO SCH ×2 (09:47→20:32)
[2019-02-01] MEDS: VANCOMYCIN INJ 1,250 MG in SODIUM CHLORIDE 0.9% 250 ML IV SCH (15:00)
[2019-02-01] MEDS: traMADol 50 MG TABLET PO PRN ×2 (18:02→22:46)
[2019-02-02] MEDS: traMADol 50 MG TABLET PO PRN ×4 (07:37→23:14)
[2019-02-02] MEDS: amLODIPine 5 MG TABLET PO SCH ×2 (09:00→22:09)
[2019-02-02] MEDS: CARVEDILOL 25 MG TABLET PO SCH ×2 (09:00→22:09)
[2019-02-02] MEDS: LISINOPRIL 20 MG TABLET PO SCH (09:00)
[2019-02-02] MEDS: PANTOPRAZOLE 40 MG TABLET PO SCH ×2 (09:01→18:25)
[2019-02-02] MEDS: predniSONE 10 MG TABLET PO SCH ×2 (09:01→22:09)
[2019-02-02] MEDS: VANCOMYCIN INJ 1,250 MG in SODIUM CHLORIDE 0.9% 250 ML IV SCH (15:08)
[2019-02-03 06:47] LABS: Basophils % 0.3 % (0.0-0.8); Hematocrit 32.4 VOL% (42.0-52.0); Hemoglobin 9.6 GM/DL (14.0-18.0); Immature Granulocytes % 5.2 %; Immature Granulocytes Absolute 0.61 #; Lymphocytes # 0.9 10*3/uL (1.4-4.0); Lymphocytes % 7.3 % (21.2-54.2); Mean Corpuscular HGB Conc 29.6 GM/DL (32-36); Mean Corpuscular Volume 84.4 FL (87-102); Mean Platelet Volume 10.3 FL (9.6-12.0); Monocytes % 6.7 % (1.7-12.7); NRBC # 0.02 10*3/uL; Neutrophils % 80.5 % (38.7-73.9); Platelet Count 298 T/CUMM (130-400); Red Blood Count 3.84 MC/CUMM (3.8-5.5); Red Cell Distribution Width 19.3 % (9.3-17.3); White Blood Count 11.7 T/CUMM (4-12)
[2019-02-03] MEDS: SODIUM CHLORIDE 0.9% 1,000 ML IV SCH ×2 (06:51→16:19)
[2019-02-03 07:16] LABS: Atypical Lymphocytes Few; Calcium 9.1 MG/DL (8.5-10.1); Hypochromasia 1+; Lymphocytes 13 % (20-55); Microcytosis 1+; Myelocytes 2 %; Segmented Neutrophils 75 % (50-85); Total Cells Counted 100
[2019-02-03 07:17] LABS: Hypersegmented Neutrophil SLIGHT; Platelet Estimate Normal
[2019-02-03] MEDS ORDERED: VANCOMYCIN INJ 1,250 MG in SODIUM CHLORIDE 0.9% 250 ML IV ONE (08:37)
[2019-02-03] MEDS: PANTOPRAZOLE 40 MG TABLET PO SCH ×2 (08:49→18:13)
[2019-02-03] MEDS ORDERED: ceFAZolin 1,000 MG VIAL ONE (09:09)
[2019-02-03] MEDS ORDERED: SEVOFLURANE 1 UNIT/15 MINUTE INH ONE (10:21)
[2019-02-03] MEDS ORDERED: PROPOFOL 200 MG/20 ML VIAL IV ONE (10:21)
[2019-02-03] MEDS ORDERED: ONDANSETRON 4 MG/2 ML VIAL ONE ×2 (10:22→10:34)
[2019-02-03] MEDS ORDERED: MIDAZOLAM 2 MG/2 ML VIAL ONE (10:22)
[2019-02-03] MEDS ORDERED: SUCCINYLCHOLINE 200 MG/10 ML VIAL ONE (10:22)
[2019-02-03] MEDS ORDERED: ROCURONIUM 100 MG/10 ML VIAL IV ONE (10:22)
[2019-02-03] MEDS ORDERED: PHENYLEPHRINE 1 MG/10 ML SYRINGE IV ONE (10:22)
[2019-02-03] MEDS ORDERED: fentaNYL 100 MCG/2 ML VIAL ONE (10:22)
[2019-02-03] MEDS ORDERED: ONDANSETRON 4 MG/2 ML VIAL IV PRN (10:27)
[2019-02-03] MEDS: MEPERIDINE 25 MG/1 ML VIAL IV PRN ×2 (10:30→17:42)
[2019-02-03] MEDS ORDERED: MEPERIDINE 25 MG/1 ML VIAL ONE (10:33)
[2019-02-03] MEDS ORDERED: HYDROmorphone 2 MG/1 ML VIAL ONE (10:33)
[2019-02-03] MEDS: HYDROmorphone 2 MG/1 ML VIAL IV PRN ×4 (10:40→11:00)
[2019-02-03] MEDS: predniSONE 10 MG TABLET PO SCH ×2 (13:58→21:42)
[2019-02-03] MEDS: amLODIPine 5 MG TABLET PO SCH ×2 (13:58→21:50)
[2019-02-03] MEDS: CARVEDILOL 25 MG TABLET PO SCH ×2 (13:58→21:42)
[2019-02-03] MEDS: LISINOPRIL 20 MG TABLET PO SCH (13:58)
[2019-02-03] MEDS: traMADol 50 MG TABLET PO PRN (16:18)
[2019-02-03] MEDS: VANCOMYCIN INJ 1,250 MG in SODIUM CHLORIDE 0.9% 250 ML IV SCH (16:19)
[2019-02-03] MEDS ORDERED: MORPHINE 4 MG/1 ML VIAL IM PRN (16:59)
[2019-02-04] MEDS: oxyCODONE/ACETAMINOPHEN 5-325 MG TABLET PO PRN ×5 (00:52→23:19)
[2019-02-04] MEDS: PANTOPRAZOLE 40 MG TABLET PO SCH ×2 (07:30→18:18)
[2019-02-04] MEDS: predniSONE 10 MG TABLET PO SCH ×2 (09:01→21:50)
[2019-02-04] MEDS: CARVEDILOL 25 MG TABLET PO SCH ×2 (09:01→21:50)
[2019-02-04] MEDS: LISINOPRIL 20 MG TABLET PO SCH (09:01)
[2019-02-04] MEDS: amLODIPine 5 MG TABLET PO SCH ×2 (09:01→21:52)
[2019-02-04] MEDS: VANCOMYCIN INJ 1,250 MG in SODIUM CHLORIDE 0.9% 250 ML IV SCH (15:41)
[2019-02-04] MEDS: SODIUM CHLORIDE 0.9% 1,000 ML IV SCH (15:42)
[2019-02-05] MEDS: PANTOPRAZOLE 40 MG TABLET PO SCH ×2 (06:47→18:37)
[2019-02-05] MEDS: oxyCODONE/ACETAMINOPHEN 5-325 MG TABLET PO PRN ×3 (06:52→22:44)
[2019-02-05] MEDS: LISINOPRIL 20 MG TABLET PO SCH (10:42)
[2019-02-05] MEDS: predniSONE 10 MG TABLET PO SCH ×2 (10:43→20:41)
[2019-02-05] MEDS: amLODIPine 5 MG TABLET PO SCH ×2 (10:43→20:34)
[2019-02-05] MEDS: CARVEDILOL 25 MG TABLET PO SCH ×2 (10:43→20:34)
[2019-02-05] MEDS: traMADol 50 MG TABLET PO PRN (12:15)
[2019-02-05] MEDS: SODIUM CHLORIDE 0.9% 1,000 ML IV SCH (12:16)
[2019-02-05] MEDS: VANCOMYCIN INJ 1,250 MG in SODIUM CHLORIDE 0.9% 250 ML IV SCH (16:24)
[2019-02-06] MEDS: PANTOPRAZOLE 40 MG TABLET PO SCH (06:38)
[2019-02-06] MEDS: oxyCODONE/ACETAMINOPHEN 5-325 MG TABLET PO PRN ×2 (07:26→12:15)
[2019-02-06] MEDS: SODIUM CHLORIDE 0.9% 1,000 ML IV SCH (08:54)
[2019-02-06] MEDS: predniSONE 10 MG TABLET PO SCH (08:56)
[2019-02-06] MEDS: CARVEDILOL 25 MG TABLET PO SCH (08:56)
[2019-02-06] MEDS: amLODIPine 5 MG TABLET PO SCH (08:56)
[2019-02-06] MEDS: LISINOPRIL 20 MG TABLET PO SCH (08:56)
[2019-02-06] MEDS: traMADol 50 MG TABLET PO PRN (10:55)
[2019-02-06] MEDS ORDERED: VANCOMYCIN INJ 1,500 MG in SODIUM CHLORIDE 0.9% 500 ML IV SCH (11:00)
[2019-02-06 12:07] VITALS: BP 146/72
== END 2019-02-06 15:29 | disposition home or self-care (01) | DRG 982 ==
LOC: N.ED 10:41 → SUATTDRO 14:41 → N.EDINP 14:41 → N.2E 16:26
PROVIDERS: ADMIT Internal Medicine; ATTEND Internal Medicine

== ENCOUNTER 2019-05-20 11:53 | Inpatient (IN) ==
[2019-05-20 12:39] LABS: Basophils # 0.1 10*3/uL (0.0-0.2); Basophils % 0.3 % (0.0-0.8); Eosinophils # 0.1 10*3/uL (0.0-0.87); Eosinophils % 0.3 % (0.00-10.9); Hematocrit 25.1 VOL% (42.0-52.0); Hemoglobin 7.4 GM/DL (14.0-18.0); Immature Granulocytes % 9.2 %; Immature Granulocytes Absolute 1.88 #; Lymphocytes # 1.3 10*3/uL (1.4-4.0); Lymphocytes % 6.4 % (21.2-54.2); Mean Corpuscular HGB Conc 29.5 GM/DL (32-36); Mean Corpuscular Volume 84.5 FL (87-102); Mean Platelet Volume 10.8 FL (9.6-12.0); Monocytes % 11.7 % (1.7-12.7); NRBC # 0.06 10*3/uL; Neutrophils % 72.1 % (38.7-73.9); Platelet Count 340 T/CUMM (130-400); Red Blood Count 2.97 MC/CUMM (3.8-5.5); Red Cell Distribution Width 20.5 % (9.3-17.3); White Blood Count 20.4 T/CUMM (4-12)
[2019-05-20 13:01] LABS: Anisocytosis 1+; Band Neutrophils 10 % (0-10); Eosinophils 2 % (0-10); Lymphocytes 10 % (20-55); Metamyelocytes 3 %; Myelocytes 2 %; Nucleated Red Blood Cells 1 (0-5); Platelet Estimate Normal; Poikilocytosis Slight; Segmented Neutrophils 63 % (50-85); Total Cells Counted 100
[2019-05-20 13:02] LABS: Ovalocytes Few
[2019-05-20 13:06] LABS: Albumin 2.5 G/DL (3.4-5.0); Bilirubin,Total 0.4 MG/DL (0.2-1.0); Calcium 8.7 MG/DL (8.5-10.1); Osmolality,Calculated 300.8 MOS/KG (273-304); Total Protein 6.6 G/DL (6.4-8.3)
[2019-05-20 13:36] LABS: Barbiturates Screen,Urine Negative (Negative); Benzodiazepines Screen,Urine Negative (Negative); Cannabinoid Screen,Urine Negative (Negative); Opiate Screen,Urine Positive (Negative); Phencyclidine Screen,Urine Negative (Negative)
[2019-05-20 14:03] LABS: Apearance,Urine CLEAR (Clear); Bilirubin,Urine Negative (Negative); Blood, Urine Negative (Negative); Glucose,Urine (UA) Negative (Negative); Hyaline Casts,Urine 14 /LPF (0-3); Ketones,Urine Negative (Negative); Mucus,Urine Occasional /LPF (Occasional); Nitrite,Urine Negative (Negative); Protein,Urine Negative; RBC,Urine 1 /HPF (0-4); Squamous Epithelial Cell,Urine Occasional /HPF (0-10); Urine Color Yellow (Yellow); Urine Specific Gravity 1.017 (1.001-1.035); Urine Urobilinogen < 2.0 EU/DL (0.2-1.0); WBC,Urine 4 /HPF (0-6)
[2019-05-20] MEDS ORDERED: ONDANSETRON 4 MG/2 ML VIAL IV PRN (14:40)
[2019-05-20] MEDS ORDERED: ACETAMINOPHEN 325 MG TABLET PO PRN (14:40)
[2019-05-20] MEDS ORDERED: LACTULOSE 20 GM/30 ML UDCUP PO PRN (14:40)
[2019-05-20] MEDS ORDERED: SODIUM CHLORIDE 0.9% 1,000 ML IV PRN (14:52)
[2019-05-20] MEDS ORDERED: CALCIUM GLUCONATE 1,000 MG in SODIUM CHLORIDE 0.9% 100 ML IV ONE (14:58)
[2019-05-20] MEDS ORDERED: DEXTROSE 50% 25 GM/50 ML VIAL IV ONE (14:58)
[2019-05-20] MEDS ORDERED: SODIUM BICARBONATE 50 MEQ/50 ML VIAL IV ONE (14:58)
[2019-05-20] MEDS ORDERED: INSULIN REGULAR 100 UNIT/ML SUBCUT ONE (14:58)
[2019-05-20] MEDS ORDERED: CLINDAMYCIN INJ 600 MG in PREMIX 1 EACH IV SCH (15:00)
[2019-05-20 15:07] LABS: Risk Ratio 4.75; Thyroid Stimulating Hormone 0.667 uIU/ml (0.358-3.74)
[2019-05-20] MEDS ORDERED: SODIUM CHLORIDE 0.45% 1,000 ML IV ONE (15:13)
[2019-05-20] MEDS ORDERED: HYDROmorphone 2 MG/1 ML VIAL IV PRN (15:15)
[2019-05-20] MEDS ORDERED: NITROGLYCERIN SL 0.4 MG TABLET SL PRN (15:15)
[2019-05-20] MEDS ORDERED: traMADol 50 MG TABLET PO PRN (15:15)
[2019-05-20] MEDS ORDERED: DEXTROSE 10% 250 ML BAG IV PRN (15:54)
[2019-05-20] MEDS ORDERED: SODIUM BICARB INJ 50 MEQ in IV BAG 1 EACH IV ONE (17:00)
[2019-05-20] MEDS: predniSONE 5 MG TABLET PO SCH (19:10)
[2019-05-20] MEDS: carvediloL 25 MG TABLET PO SCH (21:36)
[2019-05-20] MEDS: PANTOPRAZOLE 40 MG TABLET PO SCH (21:40)
[2019-05-21] MEDS: HYDROmorphone 2 MG/1 ML VIAL IV PRN ×3 (00:45→08:41)
[2019-05-21 02:01] LABS: Basophils # 0.1 10*3/uL (0.0-0.2); Basophils % 0.4 % (0.0-0.8); Eosinophils % 0.1 % (0.00-10.9); Hematocrit 30.2 VOL% (42.0-52.0); Hemoglobin 9.2 GM/DL (14.0-18.0); Immature Granulocytes Absolute 2.02 #; Lymphocytes # 0.7 10*3/uL (1.4-4.0); Lymphocytes % 3.9 % (21.2-54.2); Mean Corpuscular HGB Conc 30.5 GM/DL (32-36); Mean Corpuscular Volume 85.3 FL (87-102); Mean Platelet Volume 10.6 FL (9.6-12.0); Monocytes % 9.6 % (1.7-12.7); NRBC # 0.02 10*3/uL; Platelet Count 273 T/CUMM (130-400); Red Blood Count 3.54 MC/CUMM (3.8-5.5); Red Cell Distribution Width 18.6 % (9.3-17.3); White Blood Count 18.3 T/CUMM (4-12)
[2019-05-21 02:21] LABS: Bilirubin,Total 0.4 MG/DL (0.2-1.0); Calcium 9.1 MG/DL (8.5-10.1); Osmolality,Calculated 291.7 MOS/KG (273-304); Total Protein 6.7 G/DL (6.4-8.3)
[2019-05-21] MEDS ORDERED: SODIUM POLYSTYRENE SULFATE 15 GM/60 ML BOTTLE PO ONE (02:31)
[2019-05-21] MEDS ORDERED: FUROSEMIDE 40 MG/4 ML VIAL IV ONE (02:32)
[2019-05-21] MEDS: VANCOMYCIN INJ 1,000 MG in SODIUM CHLORIDE 0.9% 250 ML IV SCH (02:44)
[2019-05-21 04:05] LABS: Anisocytosis 1+; Atypical Lymphocytes Few; Band Neutrophils 6 % (0-10); Hypochromasia 1+; Lymphocytes 16 % (20-55); Microcytosis 1+; Ovalocytes 1+; Platelet Estimate Adequate; Segmented Neutrophils 73 % (50-85); Total Cells Counted 100
[2019-05-21] MEDS: carvediloL 25 MG TABLET PO SCH (08:46)
[2019-05-21] MEDS: predniSONE 5 MG TABLET PO SCH ×2 (08:46→19:34)
[2019-05-21] MEDS: PANTOPRAZOLE 40 MG TABLET PO SCH ×2 (08:46→20:29)
[2019-05-21] MEDS: lisinopriL 20 MG TABLET PO SCH (08:47)
[2019-05-21] MEDS ORDERED: PANTOPRAZOLE 40 MG TABLET PO SCH (09:00)
[2019-05-21 16:22] LABS: Calcium 8.5 MG/DL (8.5-10.1); Osmolality,Calculated 305.7 MOS/KG (273-304)
[2019-05-21] MEDS: SODIUM CHLORIDE 0.9% 1,000 ML IV SCH (16:49)
[2019-05-21] MEDS: fentaNYL 25 MCG/HR PATCH TRANSDERM SCH (19:34)
[2019-05-22] MEDS: VANCOMYCIN INJ 1,000 MG in SODIUM CHLORIDE 0.9% 250 ML IV SCH (03:27)
[2019-05-22 05:52] LABS: Basophils # 0.1 10*3/uL (0.0-0.2); Basophils % 0.4 % (0.0-0.8); Eosinophils % 0.2 % (0.00-10.9); Hematocrit 27.5 VOL% (42.0-52.0); Hemoglobin 8.4 GM/DL (14.0-18.0); Immature Granulocytes % 8.5 %; Immature Granulocytes Absolute 1.14 #; Lymphocytes # 0.7 10*3/uL (1.4-4.0); Lymphocytes % 5.3 % (21.2-54.2); Mean Corpuscular HGB Conc 30.5 GM/DL (32-36); Mean Corpuscular Volume 85.9 FL (87-102); Mean Platelet Volume 10.6 FL (9.6-12.0); Monocytes % 9.7 % (1.7-12.7); Neutrophils % 75.9 % (38.7-73.9); Platelet Count 276 T/CUMM (130-400); Red Cell Distribution Width 19.1 % (9.3-17.3); White Blood Count 13.4 T/CUMM (4-12)
[2019-05-22 06:14] LABS: Calcium 8.8 MG/DL (8.5-10.1); Osmolality,Calculated 302.6 MOS/KG (273-304)
[2019-05-22 06:17] LABS: Band Neutrophils 1 % (0-10); Hypochromasia 1+; Lymphocytes 9 % (20-55); Microcytosis 1+; Ovalocytes Slight; Platelet Estimate Adequate; Segmented Neutrophils 76 % (50-85); Total Cells Counted 100
[2019-05-22] MEDS: SODIUM CHLORIDE 0.9% 1,000 ML IV SCH (07:58)
[2019-05-22] MEDS: SODIUM CHLORIDE 0.45% 1,000 ML IV SCH ×2 (07:58→16:01)
[2019-05-22] MEDS: PANTOPRAZOLE 40 MG TABLET PO SCH ×2 (08:11→21:44)
[2019-05-22] MEDS: predniSONE 5 MG TABLET PO SCH ×2 (08:11→18:34)
[2019-05-22] MEDS: HYDROmorphone 2 MG/1 ML VIAL IV PRN ×2 (08:18→21:44)
[2019-05-22] MEDS ORDERED: FLUCONAZOLE 150 MG TABLET PO ONE (17:00)
[2019-05-22] MEDS: traZODone 50 MG TABLET PO SCH (21:44)
[2019-05-22] MEDS: carvediloL 25 MG TABLET PO SCH (21:44)
[2019-05-23] MEDS: SODIUM CHLORIDE 0.45% 1,000 ML IV SCH ×2 (01:36→11:49)
[2019-05-23 02:57] LABS: Basophils % 0.2 % (0.0-0.8); Eosinophils % 0.2 % (0.00-10.9); Hematocrit 23.2 VOL% (42.0-52.0); Hemoglobin 7.1 GM/DL (14.0-18.0); Immature Granulocytes Absolute 0.72 #; Lymphocytes # 0.6 10*3/uL (1.4-4.0); Lymphocytes % 6.2 % (21.2-54.2); Mean Corpuscular HGB Conc 30.6 GM/DL (32-36); Mean Corpuscular Volume 85.3 FL (87-102); Mean Platelet Volume 10.1 FL (9.6-12.0); Monocytes % 8.3 % (1.7-12.7); NRBC # 0.02 10*3/uL; Neutrophils % 78.1 % (38.7-73.9); Platelet Count 248 T/CUMM (130-400); Red Blood Count 2.72 MC/CUMM (3.8-5.5); White Blood Count 10.3 T/CUMM (4-12)
[2019-05-23 03:25] LABS: Band Neutrophils 3 % (0-10); Lymphocytes 7 % (20-55); Metamyelocytes 1 %; Platelet Estimate Normal; Segmented Neutrophils 86 % (50-85); Total Cells Counted 100
[2019-05-23 03:26] LABS: Anisocytosis 1+; Hypochromasia Slight; Microcytosis 2+; Polychromasia Slight
[2019-05-23 03:33] LABS: Calcium 8.2 MG/DL (8.5-10.1)
[2019-05-23] MEDS: VANCOMYCIN INJ 1,000 MG in SODIUM CHLORIDE 0.9% 250 ML IV SCH (03:57)
[2019-05-23] MEDS: HYDROmorphone 2 MG/1 ML VIAL IV PRN (07:04)
[2019-05-23] MEDS: predniSONE 5 MG TABLET PO SCH ×2 (08:30→18:05)
[2019-05-23] MEDS: PANTOPRAZOLE 40 MG TABLET PO SCH ×2 (08:30→21:06)
[2019-05-23] MEDS: carvediloL 25 MG TABLET PO SCH ×2 (08:30→21:06)
[2019-05-23] MEDS: lisinopriL 20 MG TABLET PO SCH (08:30)
[2019-05-23] MEDS ORDERED: SODIUM CHLORIDE 0.9% 1,000 ML IV PRN (09:51)
[2019-05-23 19:45] LABS: Hematocrit 29.8 VOL% (42.0-52.0)
[2019-05-23 19:51] LABS: Hemoglobin 9.1 GM/DL (14.0-18.0)
[2019-05-23] MEDS: traZODone 50 MG TABLET PO SCH (21:05)
[2019-05-23] MEDS ORDERED: VANCOMYCIN INJ 1,000 MG in SODIUM CHLORIDE 0.9% 250 ML IV SCH (22:00)
[2019-05-24] MEDS: SODIUM CHLORIDE 0.45% 1,000 ML IV SCH ×2 (03:52)
[2019-05-24 05:31] LABS: Basophils % 0.2 % (0.0-0.8); Eosinophils # 0.1 10*3/uL (0.0-0.87); Eosinophils % 0.6 % (0.00-10.9); Hematocrit 27.8 VOL% (42.0-52.0); Hemoglobin 8.7 GM/DL (14.0-18.0); Immature Granulocytes % 5.7 %; Immature Granulocytes Absolute 0.51 #; Lymphocytes # 0.7 10*3/uL (1.4-4.0); Lymphocytes % 7.4 % (21.2-54.2); Mean Corpuscular HGB Conc 31.3 GM/DL (32-36); Mean Corpuscular Volume 86.9 FL (87-102); Mean Platelet Volume 10.7 FL (9.6-12.0); Monocytes % 11.4 % (1.7-12.7); Neutrophils % 74.7 % (38.7-73.9); Platelet Count 235 T/CUMM (130-400); Red Cell Distribution Width 18.4 % (9.3-17.3)
[2019-05-24 06:04] LABS: Band Neutrophils 3 % (0-10); Hypochromasia 1+; Lymphocytes 8 % (20-55); Microcytosis 1+; Myelocytes 1 %; Platelet Estimate Adequate; Segmented Neutrophils 75 % (50-85); Total Cells Counted 100
[2019-05-24 06:07] LABS: Calcium 8.4 MG/DL (8.5-10.1); Osmolality,Calculated 293.7 MOS/KG (273-304)
[2019-05-24 06:12] LABS: % Iron Saturation 14.7 % (18-50); Ferritin 144.3 ng/ml (26-388)
[2019-05-24 06:18] LABS: Folate 2.9 NG/ML (5.4-24.0)
[2019-05-24] MEDS: predniSONE 5 MG TABLET PO SCH (09:07)
[2019-05-24] MEDS: lisinopriL 20 MG TABLET PO SCH (09:07)
[2019-05-24] MEDS: carvediloL 25 MG TABLET PO SCH (09:08)
[2019-05-24] MEDS: PANTOPRAZOLE 40 MG TABLET PO SCH (09:08)
[2019-05-24] MEDS: fentaNYL 25 MCG/HR PATCH TRANSDERM SCH (09:09)
[2019-05-24] MEDS: HYDROmorphone 2 MG/1 ML VIAL IV PRN (11:08)
[2019-05-24 12:01] VITALS: BP 138/74
== END 2019-05-24 12:53 | disposition hospice, home (50) | DRG 552 ==
LOC: EDUNIT# → EDBD → N.ED 11:53 → SUATTDRO 14:40 → N.EDINP 14:40 → N.3E 15:15 → N.2E 05-22 17:23
PROVIDERS: ADMIT Internal Medicine; ATTEND Internal Medicine Cardiovascular Disease

== ENCOUNTER 2019-09-28 18:58 | Inpatient (IN) ==
[2019-09-28] MEDS ORDERED: HYDROmorphone 2 MG/1 ML VIAL IV STA (19:29)
[2019-09-28] MEDS ORDERED: KETOROLAC 30 MG/1 ML VIAL IV STA (19:29)
[2019-09-28] MEDS ORDERED: SODIUM CHLORIDE 0.9% 500 ML IV STA (19:29)
[2019-09-28 20:40] LABS: Basophils % 0.2 % (0.0-0.8); Eosinophils % 0.1 % (0.00-10.9); Hematocrit 32.5 VOL% (42.0-52.0); Hemoglobin 9.7 GM/DL (14.0-18.0); Immature Granulocytes % 3.1 %; Immature Granulocytes Absolute 0.46 #; Lymphocytes # 0.4 10*3/uL (1.4-4.0); Lymphocytes % 2.9 % (21.2-54.2); Mean Corpuscular HGB Conc 29.8 GM/DL (32-36); Mean Platelet Volume 11.2 FL (9.6-12.0); Monocytes % 6.4 % (1.7-12.7); NRBC # 0.02 10*3/uL; Neutrophils % 87.3 % (38.7-73.9); Platelet Count 153 T/CUMM (130-400); Red Blood Count 3.61 MC/CUMM (3.8-5.5); Red Cell Distribution Width 16.7 % (9.3-17.3); White Blood Count 14.9 T/CUMM (4-12)
[2019-09-28 21:01] LABS: Apearance,Urine CLEAR (Clear); Bilirubin,Urine Negative (Negative); Blood, Urine Moderate mg/dL (Negative); Glucose,Urine (UA) Negative (Negative); Ketones,Urine Negative (Negative); Mucus,Urine Occasional /LPF (Occasional); Nitrite,Urine Negative (Negative); Protein,Urine 30 MG/DL; RBC,Urine 7 /HPF (0-4); Squamous Epithelial Cell,Urine Occasional /HPF (0-10); Urine Color Yellow (Yellow); Urine Specific Gravity 1.019 (1.001-1.035); Urine Urobilinogen < 2.0 EU/DL (0.2-1.0); WBC,Urine 1 /HPF (0-6)
[2019-09-28 21:14] LABS: Calcium 8.8 MG/DL (8.5-10.1); Osmolality,Calculated 290.1 MOS/KG (273-304)
[2019-09-28] MEDS ORDERED: VANCOMYCIN INJ 1,000 MG in SODIUM CHLORIDE 0.9% 250 ML IV STA ×2 (21:23→21:27)
[2019-09-28] MEDS ORDERED: PIPERACILLIN/TAZOBACTAM 4,500 MG in SODIUM CHLORIDE 0.9% 100 ML IV STA ×2 (21:23→21:47)
[2019-09-28 21:56] LABS: Hypochromasia Slight; Lymphocytes 2 % (20-55); Platelet Estimate Adequate; Reactive Lymphocytes Slight; Segmented Neutrophils 96 % (50-85); Total Cells Counted 100
[2019-09-28] MEDS ORDERED: ONDANSETRON 4 MG/2 ML VIAL IV PRN (23:27)
[2019-09-28] MEDS ORDERED: guaiFENesin/DM ER 600-30 MG TABLET PO PRN (23:27)
[2019-09-28] MEDS ORDERED: ZALEPLON 5 MG CAPSULE PO PRN (23:27)
[2019-09-28] MEDS ORDERED: GLUCAGON 1 MG VIAL IM PRN (23:27)
[2019-09-28] MEDS ORDERED: diphenhydrAMINE CAP 25 MG CAPSULE PO PRN (23:27)
[2019-09-28] MEDS ORDERED: DEXTROSE 50% 25 GM/50 ML VIAL IV PRN (23:27)
[2019-09-28] MEDS ORDERED: NICOTINE 21 MG/24 HR PATCH TRANSDERM PRN (23:27)
[2019-09-28] MEDS ORDERED: SODIUM CHLORIDE 0.9% 1,000 ML IV ONE (23:27)
[2019-09-28] MEDS ORDERED: hydrALAZINE 20 MG/1 ML VIAL IV PRN (23:27)
[2019-09-29] MEDS ORDERED: MORPHINE 4 MG/1 ML VIAL IV ONE (01:10)
[2019-09-29] MEDS: LEVOFLOXACIN INJ 750 MG in PREMIX 1 EACH IV SCH (02:57)
[2019-09-29] MEDS ORDERED: NITROGLYCERIN SL 0.4 MG TABLET SL PRN (05:27)
[2019-09-29 06:13] LABS: Basophils % 0.2 % (0.0-0.8); Eosinophils # 0.1 10*3/uL (0.0-0.87); Eosinophils % 0.4 % (0.00-10.9); Hematocrit 29.8 VOL% (42.0-52.0); Immature Granulocytes % 4.8 %; Immature Granulocytes Absolute 0.58 #; Lymphocytes # 0.6 10*3/uL (1.4-4.0); Lymphocytes % 4.8 % (21.2-54.2); Mean Corpuscular HGB Conc 30.2 GM/DL (32-36); Mean Corpuscular Volume 88.2 FL (87-102); Mean Platelet Volume 11.5 FL (9.6-12.0); Monocytes % 6.1 % (1.7-12.7); NRBC # 0.02 10*3/uL; Neutrophils % 83.7 % (38.7-73.9); Platelet Count 145 T/CUMM (130-400); Red Blood Count 3.38 MC/CUMM (3.8-5.5); Red Cell Distribution Width 16.7 % (9.3-17.3)
[2019-09-29 06:45] LABS: Calcium 8.6 MG/DL (8.5-10.1); Osmolality,Calculated 284.4 MOS/KG (273-304)
[2019-09-29 06:52] LABS: Band Neutrophils 2 % (0-10); Lymphocytes 5 % (20-55); Metamyelocytes 2 %; Platelet Estimate Adequate; Segmented Neutrophils 87 % (50-85); Total Cells Counted 100
[2019-09-29] MEDS: PIPERACILLIN/TAZOBACTAM 3,375 MG in SODIUM CHLORIDE 0.9% 100 ML IV SCH ×3 (08:13→22:34)
[2019-09-29] MEDS: DOCUSATE SODIUM 100 MG CAPSULE PO SCH ×2 (08:13→20:56)
[2019-09-29] MEDS: PANTOPRAZOLE 40 MG TABLET PO SCH (08:13)
[2019-09-29] MEDS: MORPHINE 4 MG/1 ML VIAL IV PRN ×4 (08:14→22:33)
[2019-09-29] MEDS: SODIUM CHLORIDE 0.9% 1,000 ML IV SCH ×2 (09:20→09:21)
[2019-09-29 12:38] LABS: Sedimentation Rate-Westergren 120 MM/HR (0-20)
[2019-09-29] MEDS: ACETAMINOPHEN 325 MG TABLET PO PRN (13:47)
[2019-09-29] MEDS: predniSONE 5 MG TABLET PO SCH (18:11)
[2019-09-29] MEDS: VANCOMYCIN INJ 1,250 MG in SODIUM CHLORIDE 0.9% 250 ML IV SCH (20:58)
[2019-09-29] MEDS: KETOROLAC 15 MG/1 ML VIAL IV PRN (22:33)
[2019-09-30] MEDS: LEVOFLOXACIN INJ 750 MG in PREMIX 1 EACH IV SCH (04:58)
[2019-09-30] MEDS: PIPERACILLIN/TAZOBACTAM 3,375 MG in SODIUM CHLORIDE 0.9% 100 ML IV SCH (06:43)
[2019-09-30] MEDS: SODIUM CHLORIDE 0.9% 1,000 ML IV SCH ×3 (06:43→14:41)
[2019-09-30 06:54] LABS: Albumin 1.9 G/DL (3.4-5.0); Calcium 8.4 MG/DL (8.5-10.1); Osmolality,Calculated 291.1 MOS/KG (273-304)
[2019-09-30] MEDS: DOCUSATE SODIUM 100 MG CAPSULE PO SCH ×2 (08:06→20:31)
[2019-09-30] MEDS: PANTOPRAZOLE 40 MG TABLET PO SCH (08:06)
[2019-09-30] MEDS: KETOROLAC 15 MG/1 ML VIAL IV PRN (17:52)
[2019-09-30] MEDS: predniSONE 5 MG TABLET PO SCH (18:00)
[2019-09-30] MEDS: MORPHINE 4 MG/1 ML VIAL IV PRN (20:31)
[2019-09-30] MEDS: VANCOMYCIN INJ 1,250 MG in SODIUM CHLORIDE 0.9% 250 ML IV SCH (20:34)
[2019-10-01] MEDS: SODIUM CHLORIDE 0.9% 1,000 ML IV SCH ×2 (00:31→10:35)
[2019-10-01] MEDS: MORPHINE 4 MG/1 ML VIAL IV PRN ×2 (03:42→08:17)
[2019-10-01] MEDS: KETOROLAC 15 MG/1 ML VIAL IV PRN ×2 (08:16→18:44)
[2019-10-01] MEDS: PANTOPRAZOLE 40 MG TABLET PO SCH (08:17)
[2019-10-01] MEDS: DOCUSATE SODIUM 100 MG CAPSULE PO SCH ×2 (08:17→20:34)
[2019-10-01] MEDS: HYDROmorphone 2 MG/1 ML VIAL IV PRN ×2 (13:12→18:44)
[2019-10-01] MEDS ORDERED: VANCOMYCIN INJ 1,250 MG in SODIUM CHLORIDE 0.9% 250 ML IV SCH (14:00)
[2019-10-01] MEDS: predniSONE 5 MG TABLET PO SCH (18:00)
[2019-10-02] MEDS: HYDROmorphone 2 MG/1 ML VIAL IV PRN ×5 (01:16→20:01)
[2019-10-02] MEDS: KETOROLAC 15 MG/1 ML VIAL IV PRN (01:19)
[2019-10-02] MEDS: SODIUM CHLORIDE 0.9% 1,000 ML IV SCH ×3 (01:20→20:44)
[2019-10-02 07:15] LABS: Calcium 8.7 MG/DL (8.5-10.1); Osmolality,Calculated 280.4 MOS/KG (273-304)
[2019-10-02] MEDS: DOCUSATE SODIUM 100 MG CAPSULE PO SCH ×2 (09:32→20:04)
[2019-10-02] MEDS: PANTOPRAZOLE 40 MG TABLET PO SCH (09:32)
[2019-10-02] MEDS: ACETAMINOPHEN 325 MG TABLET PO PRN (15:29)
[2019-10-02] MEDS ORDERED: ACETAMINOPHEN 500 MG TABLET PO PRN (16:47)
[2019-10-02] MEDS ORDERED: IBUPROFEN 400 MG TABLET PO PRN (16:47)
[2019-10-02] MEDS: predniSONE 5 MG TABLET PO SCH ×2 (17:54→20:03)
[2019-10-03] MEDS: HYDROmorphone 2 MG/1 ML VIAL IV PRN ×5 (00:47→22:03)
[2019-10-03] MEDS: SODIUM CHLORIDE 0.9% 1,000 ML IV SCH ×2 (06:33→18:49)
[2019-10-03] MEDS: DOCUSATE SODIUM 100 MG CAPSULE PO SCH ×2 (09:44→21:58)
[2019-10-03] MEDS: PANTOPRAZOLE 40 MG TABLET PO SCH (09:44)
[2019-10-03] MEDS: KETOROLAC 15 MG/1 ML VIAL IV PRN (17:36)
[2019-10-03] MEDS: predniSONE 5 MG TABLET PO SCH (18:46)
[2019-10-04] MEDS: SODIUM CHLORIDE 0.9% 1,000 ML IV SCH ×2 (03:55→13:17)
[2019-10-04] MEDS: HYDROmorphone 2 MG/1 ML VIAL IV PRN ×3 (04:33→15:00)
[2019-10-04] MEDS: PANTOPRAZOLE 40 MG TABLET PO SCH (09:50)
[2019-10-04] MEDS: DOCUSATE SODIUM 100 MG CAPSULE PO SCH (09:51)
[2019-10-04 16:25] VITALS: BP 146/74
== END 2019-10-04 16:54 | disposition hospice, home (50) | DRG 95 ==
LOC: EDUNIT# → EDBD → N.ED 18:58 → SUATTDRO 23:27 → N.EDINP 23:27 → N.3E 09-29 00:19
PROVIDERS: ADMIT Internal Medicine Geriatric Medicine; ATTEND Internal Medicine

== ENCOUNTER 2020-12-25 17:19 | Inpatient (IN) ==
[2020-12-25] MEDS ORDERED: SODIUM CHLORIDE 0.9% 1,000 ML IV STA ×2 (17:34→19:55)
[2020-12-25] MEDS ORDERED: cefTRIAXone 1,000 MG in SODIUM CHLORIDE 0.9% 100 ML IV STA (17:34)
[2020-12-25] MEDS ORDERED: cefTRIAXone 1,000 MG VIAL ONE (17:36)
[2020-12-25] MEDS ORDERED: SODIUM CHLORIDE 0.9% 100 ML IV ONE (17:36)
[2020-12-25 18:05] LABS: INR 1.2; Partial Thromboplastin Time 29.6 SECS (23.9-33.8)
[2020-12-25 18:07] LABS: Bilirubin,Urine Negative (Negative); Blood, Urine Negative (Negative); Glucose,Urine (UA) Negative (Negative); Hyaline Casts,Urine 9 /LPF (0-3); Ketones,Urine 5 mg/dL (Negative); Mucus,Urine Occasional /LPF (Occasional); Nitrite,Urine Negative (Negative); Protein,Urine Negative; RBC,Urine 1 /HPF (0-4); Squamous Epithelial Cell,Urine Occasional /HPF (0-10); Urine Appearance CLEAR (Clear); Urine Color Yellow (Yellow); Urine Specific Gravity 1.016 (1.001-1.035); Urine Urobilinogen < 2.0 EU/DL (0.2-1.0)
[2020-12-25 18:12] LABS: Barbiturates Screen,Urine Negative (Negative); Benzodiazepines Screen,Urine Negative (Negative); Cannabinoid Screen,Urine Negative (Negative); Opiate Screen,Urine Negative (Negative); Phencyclidine Screen,Urine Negative (Negative)
[2020-12-25 18:16] LABS: Basophils % 0.6 % (0.0-0.8); Eosinophils % 0.1 % (0.00-10.9); Hematocrit 33.4 VOL% (42.0-52.0); Hemoglobin 9.9 GM/DL (14.0-18.0); Immature Granulocytes % 1.2 %; Immature Granulocytes Absolute 0.08 #; Lymphocytes # 0.5 10*3/uL (1.4-4.0); Lymphocytes % 7.6 % (21.2-54.2); Mean Corpuscular HGB Conc 29.6 GM/DL (32-36); Mean Corpuscular Volume 82.3 FL (87-102); Mean Platelet Volume 11.8 FL (9.6-12.0); Monocytes % 5.5 % (1.7-12.7); Platelet Count 210 T/CUMM (130-400); Red Blood Count 4.06 MC/CUMM (3.8-5.5); Red Cell Distribution Width 19.5 % (9.3-17.3)
[2020-12-25 18:27] LABS: Band Neutrophils 34 % (0-10); Eosinophils 1 % (0-10); Lymphocytes 9 % (20-55); Platelet Estimate Normal; Segmented Neutrophils 52 % (50-85); Total Cells Counted 100
[2020-12-25 18:28] LABS: Anisocytosis 2+; Ovalocytes Few; Polychromasia Slight
[2020-12-25 18:53] LABS: Alanine Aminotransferase 21 U/L (16-61); Albumin 2.6 G/DL (3.4-5.0); Alkaline Phosphatase 86 U/L (45-117); Amylase 142 U/L (25-115); Aspartate Amino Transferase 56 U/L (0-37); Blood Urea Nitrogen 41 MG/DL (7-18); Calcium 7.9 MG/DL (8.5-10.1); Carbon Dioxide 16 MMOL/L (21-32); Estimated Glom Filtration Rate 26 ML/MIN; Glucose 75 MG/DL (74-106); Potassium 4.5 MMOL/L (3.5-5.1); Sodium 143 MMOL/L (136-145); Thyroid Stimulating Hormone 0.518 uIU/ml (0.358-3.74); Total Protein 6.2 G/DL (6.4-8.2)
[2020-12-25] MEDS ORDERED: ETOMIDATE 20 MG/10 ML VIAL IV ONE (18:56)
[2020-12-25] MEDS ORDERED: ROCURONIUM 100 MG/10 ML VIAL IV ONE (18:56)
[2020-12-25 19:40] LABS: Ferritin 85.4 ng/ml (26-388)
[2020-12-25 20:20] LABS: ABG Base Excess -12.7 MMOL/L (-2.5-2.5); ABG HCO3 14.4 MMOL/L (20-26); ABG Oxygen Saturation 93.1 % (95-100); ABG PCO2 38.6 MM HG (35-48); ABG PO2 88.2 MM HG (80-95)
[2020-12-25 20:25] LABS: ABG PH 7.191 (7.35-7.45)
[2020-12-25] MEDS ORDERED: SODIUM BICARBONATE 50 MEQ/50 ML VIAL IV STA (20:25)
[2020-12-25] MEDS ORDERED: SODIUM BICARBONATE 50 MEQ/50 ML SYRINGE IV ONE (20:25)
[2020-12-25] MEDS ORDERED: NOREPINEPHRINE 8 MG in SODIUM CHLORIDE 0.9% 242 ML IV PRN (20:57)
[2020-12-25] MEDS ORDERED: NOREPINEPHRINE 4 MG/4 ML VIAL IV ONE (20:58)
[2020-12-25] MEDS ORDERED: SODIUM CHLORIDE 0.9% 500 ML IV STA (21:31)
[2020-12-25] MEDS ORDERED: LACTULOSE 20 GM/30 ML UDCUP PO PRN (21:38)
[2020-12-25] MEDS ORDERED: ALBUTEROL 2.5 MG/3 ML NEB RESP TX PRN (21:38)
[2020-12-25] MEDS ORDERED: ONDANSETRON 4 MG/2 ML VIAL IV PRN (21:38)
[2020-12-25] MEDS ORDERED: SODIUM BICARBONATE 50 MEQ/50 ML VIAL IV ONE (21:52)
[2020-12-25] MEDS ORDERED: VANCOMYCIN INJ 1,250 MG in SODIUM CHLORIDE 0.9% 250 ML IV SCH (22:00)
[2020-12-25] MEDS ORDERED: VANCOMYCIN INJ 1,250 MG in SODIUM CHLORIDE 0.9% 250 ML IV PRN (22:15)
[2020-12-25] MEDS ORDERED: VANCOMYCIN INJ 1,750 MG in SODIUM CHLORIDE 0.9% 500 ML IV ONE (23:00)
[2020-12-26] MEDS: PANTOPRAZOLE 40 MG VIAL IV SCH ×2 (00:01→22:33)
[2020-12-26 00:04] LABS: INR 1.2
[2020-12-26] MEDS: PIPERACILLIN/TAZOBACTAM 3,375 MG in SODIUM CHLORIDE 0.9% 100 ML IV SCH ×2 (00:32→06:30)
[2020-12-26] MEDS: ENOXAPARIN 30 MG/0.3 ML SYRINGE SUBCUT SCH ×2 (00:33→22:34)
[2020-12-26] MEDS: SODIUM CHLORIDE 0.9% 1,000 ML IV SCH ×2 (00:34→07:42)
[2020-12-26] MEDS: ALBUTEROL/IPRATROPIUM 3 ML NEB RESP TX SCH ×4 (00:50→20:08)
[2020-12-26 00:57] LABS: ABG Base Excess -6.5 MMOL/L (-2.5-2.5); ABG Oxygen Saturation 91.5 % (95-100); ABG PCO2 33.1 MM HG (35-48); ABG PH 7.351 (7.35-7.45); ABG PO2 67.3 MM HG (80-95); ABG TCO2 16.9 MMOL/L (23-27)
[2020-12-26] MEDS ORDERED: MIDAZOLAM 2 MG/2 ML VIAL IV ONE (02:41)
[2020-12-26] MEDS: NOREPINEPHRINE 8 MG in SODIUM CHLORIDE 0.9% 242 ML IV PRN ×3 (03:00→05:53)
[2020-12-26] MEDS ORDERED: VECURONIUM 10 MG VIAL IV ONE ×2 (04:01→04:03)
[2020-12-26 05:25] LABS: INR 1.2; PT Patient Result 13.1 SECS (10.5-12.0)
[2020-12-26 05:31] LABS: ABG Base Excess -9.9 MMOL/L (-2.5-2.5); ABG HCO3 16.3 MMOL/L (20-26); ABG Oxygen Saturation 83.9 % (95-100); ABG PCO2 34.4 MM HG (35-48); ABG PH 7.279 (7.35-7.45); ABG PO2 57.1 MM HG (80-95); ABG TCO2 15.2 MMOL/L (23-27)
[2020-12-26 06:00] LABS: Bilirubin,Total 0.9 MG/DL (0.20-1.00); Calcium 7.3 MG/DL (8.5-10.1); Potassium 3.6 MMOL/L (3.5-5.1); Total Protein 5.2 G/DL (6.4-8.2)
[2020-12-26 06:02] LABS: Basophils % 0.7 % (0.0-0.8); Eosinophils # 0.1 10*3/uL (0.0-0.87); Eosinophils % 3.2 % (0.00-10.9); Hematocrit 28.8 VOL% (42.0-52.0); Hemoglobin 8.1 GM/DL (14.0-18.0); Immature Granulocytes % 0.7 %; Immature Granulocytes Absolute 0.03 #; Lymphocytes # 0.6 10*3/uL (1.4-4.0); Lymphocytes % 12.9 % (21.2-54.2); Mean Corpuscular HGB Conc 28.1 GM/DL (32-36); Mean Platelet Volume 11.7 FL (9.6-12.0); Monocytes % 9.9 % (1.7-12.7); Neutrophils % 72.6 % (38.7-73.9); Platelet Count 179 T/CUMM (130-400); Red Blood Count 3.47 MC/CUMM (3.8-5.5); White Blood Count 4.3 T/CUMM (4-12)
[2020-12-26] MEDS ORDERED: SODIUM BICARBONATE 50 MEQ/50 ML VIAL IV ONE (06:12)
[2020-12-26] MEDS: HYDROCORTISONE 100 MG VIAL IV SCH ×3 (06:29→22:09)
[2020-12-26 07:12] LABS: Band Neutrophils 14 % (0-10); Eosinophils 3 % (0-10); Lymphocytes 16 % (20-55); Metamyelocytes 3 %; Segmented Neutrophils 54 % (50-85); Total Cells Counted 100
[2020-12-26 07:13] LABS: Hypochromasia 1+; Microcytosis 2+; Ovalocytes Few; Platelet Estimate Adequate
[2020-12-26] MEDS ORDERED: NOREPINEPHRINE 4 MG/4 ML VIAL IV ONE (07:55)
[2020-12-26] MEDS: NOREPINEPHRINE 16 MG in SODIUM CHLORIDE 0.9% 234 ML IV PRN ×3 (08:00→16:41)
[2020-12-26] MEDS: MEROPENEM 500 MG in SODIUM CHLORIDE 0.9% 100 ML IV SCH ×3 (08:15→21:50)
[2020-12-26] MEDS ORDERED: MORPHINE 2 MG/1 ML SYRINGE IV PRN ×2 (08:36→15:27)
[2020-12-26] MEDS ORDERED: SODIUM CHLORIDE 0.9% 1,000 ML IV PRN (08:43)
[2020-12-26 08:50] LABS: ABG Base Excess -10.1 MMOL/L (-2.5-2.5); ABG HCO3 15.1 MMOL/L (20-26); ABG Oxygen Saturation 95.9 % (95-100); ABG PCO2 30.1 MM HG (35-48); ABG PH 7.317 (7.35-7.45); ABG PO2 93.5 MM HG (80-95)
[2020-12-26] MEDS: SODIUM BICARB INJ 100 MEQ in DEXTROSE 5% 1,000 ML IV SCH ×2 (09:34→21:50)
[2020-12-26] MEDS: MIDAZOLAM 100 MG in SODIUM CHLORIDE 0.9% 80 ML IV PRN (16:42)
[2020-12-26] MEDS: MORPHINE 2 MG/1 ML SYRINGE IV PRN (16:43)
[2020-12-26] MEDS: fentaNYL INJ 1,250 MCG in SODIUM CHLORIDE 0.9% 225 ML IV PRN (16:44)
[2020-12-27] MEDS: NOREPINEPHRINE 16 MG in SODIUM CHLORIDE 0.9% 234 ML IV PRN ×3 (00:08→23:54)
[2020-12-27] MEDS: MEROPENEM 500 MG in SODIUM CHLORIDE 0.9% 100 ML IV SCH ×4 (01:23→21:33)
[2020-12-27] MEDS: ALBUTEROL/IPRATROPIUM 3 ML NEB RESP TX SCH ×4 (01:52→19:36)
[2020-12-27 05:46] LABS: ABG Base Excess -4.4 MMOL/L (-2.5-2.5); ABG HCO3 20.8 MMOL/L (20-26); ABG Oxygen Saturation 99.8 % (95-100); ABG PCO2 32.5 MM HG (35-48); ABG PH 7.391 (7.35-7.45); ABG TCO2 17.7 MMOL/L (23-27)
[2020-12-27 05:51] LABS: Basophils % 0.2 % (0.0-0.8); Hemoglobin 9.4 GM/DL (14.0-18.0); Immature Granulocytes % 2.7 %; Immature Granulocytes Absolute 0.49 #; Lymphocytes # 0.3 10*3/uL (1.4-4.0); Lymphocytes % 1.4 % (21.2-54.2); Mean Corpuscular HGB Conc 30.3 GM/DL (32-36); Mean Corpuscular Volume 82.9 FL (87-102); Mean Platelet Volume 11.5 FL (9.6-12.0); Monocytes % 4.9 % (1.7-12.7); NRBC # 0.03 10*3/uL; Neutrophils % 90.8 % (38.7-73.9); Platelet Count 186 T/CUMM (130-400); Red Blood Count 3.74 MC/CUMM (3.8-5.5); Red Cell Distribution Width 18.4 % (9.3-17.3); White Blood Count 18.5 T/CUMM (4-12)
[2020-12-27 05:58] LABS: INR 1.2
[2020-12-27] MEDS: HYDROCORTISONE 100 MG VIAL IV SCH ×3 (06:02→22:36)
[2020-12-27 06:07] LABS: Albumin 1.9 G/DL (3.4-5.0); Bilirubin,Total 0.6 MG/DL (0.20-1.00); Calcium 7.2 MG/DL (8.5-10.1); Potassium 4.4 MMOL/L (3.5-5.1); Total Protein 5.5 G/DL (6.4-8.2)
[2020-12-27] MEDS: fentaNYL INJ 1,250 MCG in SODIUM CHLORIDE 0.9% 225 ML IV PRN ×2 (06:32→23:55)
[2020-12-27 06:58] LABS: Band Neutrophils 24 % (0-10); Lymphocytes 4 % (20-55); Promyelocytes 2 %; Segmented Neutrophils 64 % (50-85); Total Cells Counted 100
[2020-12-27 06:59] LABS: Platelet Estimate Decreased
[2020-12-27] MEDS: SODIUM BICARB INJ 100 MEQ in DEXTROSE 5% 1,000 ML IV SCH ×2 (07:22→21:34)
[2020-12-27 09:54] LABS: ABG Base Excess -1.9 MMOL/L (-2.5-2.5); ABG HCO3 22.8 MMOL/L (20-26); ABG Oxygen Saturation 99.1 % (95-100); ABG PH 7.439 (7.35-7.45); ABG TCO2 19.9 MMOL/L (23-27)
[2020-12-27] MEDS ORDERED: VANCOMYCIN INJ 1,250 MG in SODIUM CHLORIDE 0.9% 250 ML IV ONE (10:30)
[2020-12-27] MEDS: MIDAZOLAM 100 MG in SODIUM CHLORIDE 0.9% 80 ML IV PRN (10:50)
[2020-12-27] MEDS: PANTOPRAZOLE 40 MG VIAL IV SCH (22:35)
[2020-12-27] MEDS: ENOXAPARIN 30 MG/0.3 ML SYRINGE SUBCUT SCH (22:36)
[2020-12-28] MEDS: ALBUTEROL/IPRATROPIUM 3 ML NEB RESP TX SCH ×4 (01:08→19:25)
[2020-12-28] MEDS: MEROPENEM 500 MG in SODIUM CHLORIDE 0.9% 100 ML IV SCH ×4 (03:20→20:47)
[2020-12-28 04:19] LABS: Basophils % 0.1 % (0.0-0.8); Hematocrit 27.6 VOL% (42.0-52.0); Hemoglobin 8.3 GM/DL (14.0-18.0); Immature Granulocytes % 0.5 %; Immature Granulocytes Absolute 0.07 #; Lymphocytes # 0.3 10*3/uL (1.4-4.0); Lymphocytes % 1.8 % (21.2-54.2); Mean Corpuscular HGB Conc 30.1 GM/DL (32-36); Mean Corpuscular Volume 82.9 FL (87-102); Monocytes % 4.7 % (1.7-12.7); NRBC # 0.02 10*3/uL; Neutrophils % 92.9 % (38.7-73.9); Platelet Count 139 T/CUMM (130-400); Red Blood Count 3.33 MC/CUMM (3.8-5.5); Red Cell Distribution Width 18.5 % (9.3-17.3); White Blood Count 13.9 T/CUMM (4-12)
[2020-12-28 04:21] LABS: ABG Base Excess 2.4 MMOL/L (-2.5-2.5); ABG HCO3 26.6 MMOL/L (20-26); ABG Oxygen Saturation 99.5 % (95-100); ABG PCO2 29.9 MM HG (35-48); ABG PH 7.525 (7.35-7.45); ABG TCO2 22.5 MMOL/L (23-27)
[2020-12-28 04:29] LABS: INR 1.1; PT Patient Result 12.1 SECS (10.5-12.0)
[2020-12-28 04:45] LABS: Albumin 1.8 G/DL (3.4-5.0); Bilirubin,Total 0.5 MG/DL (0.20-1.00); Calcium 7.4 MG/DL (8.5-10.1); Osmolality,Calculated 306.1 MOS/KG (273-304); Potassium 3.6 MMOL/L (3.5-5.1); Total Protein 5.3 G/DL (6.4-8.2)
[2020-12-28 05:08] LABS: Lymphocytes 4 % (20-55); Segmented Neutrophils 93 % (50-85); Total Cells Counted 100
[2020-12-28 05:09] LABS: Hypochromasia Slight; Platelet Estimate Normal
[2020-12-28 05:10] LABS: Anisocytosis 1+; Microcytosis 2+; Ovalocytes Few
[2020-12-28 05:11] LABS: Tear Drop Cells Few
[2020-12-28] MEDS: HYDROCORTISONE 100 MG VIAL IV SCH ×3 (06:21→22:38)
[2020-12-28] MEDS: SODIUM BICARB INJ 100 MEQ in DEXTROSE 5% 1,000 ML IV SCH (09:17)
[2020-12-28] MEDS: MORPHINE 2 MG/1 ML SYRINGE IV PRN (09:41)
[2020-12-28] MEDS: MIDAZOLAM 100 MG in SODIUM CHLORIDE 0.9% 80 ML IV PRN (11:22)
[2020-12-28] MEDS ORDERED: GLUCAGON 1 MG VIAL IM PRN (11:53)
[2020-12-28] MEDS ORDERED: DEXTROSE 50% 25 GM/50 ML VIAL IV PRN (11:53)
[2020-12-28] MEDS ORDERED: VANCOMYCIN INJ 1,250 MG in SODIUM CHLORIDE 0.9% 250 ML IV ONE (16:00)
[2020-12-28] MEDS: fentaNYL INJ 1,250 MCG in SODIUM CHLORIDE 0.9% 225 ML IV PRN (17:01)
[2020-12-28] MEDS: ENOXAPARIN 30 MG/0.3 ML SYRINGE SUBCUT SCH (22:38)
[2020-12-28] MEDS: PANTOPRAZOLE 40 MG VIAL IV SCH (22:38)
[2020-12-29] MEDS: ALBUTEROL/IPRATROPIUM 3 ML NEB RESP TX SCH ×4 (00:41→18:07)
[2020-12-29] MEDS: MEROPENEM 500 MG in SODIUM CHLORIDE 0.9% 100 ML IV SCH ×4 (01:09→20:18)
[2020-12-29 04:45] LABS: ABG Oxygen Saturation 98.8 % (95-100); ABG PCO2 34.9 MM HG (35-48); ABG PH 7.514 (7.35-7.45); ABG TCO2 26.1 MMOL/L (23-27)
[2020-12-29 05:08] LABS: Basophils % 0.1 % (0.0-0.8); Hematocrit 27.6 VOL% (42.0-52.0); Hemoglobin 8.1 GM/DL (14.0-18.0); Immature Granulocytes % 0.8 %; Immature Granulocytes Absolute 0.07 #; Lymphocytes # 0.3 10*3/uL (1.4-4.0); Lymphocytes % 2.8 % (21.2-54.2); Mean Corpuscular HGB Conc 29.3 GM/DL (32-36); Mean Corpuscular Volume 84.4 FL (87-102); Mean Platelet Volume 12.6 FL (9.6-12.0); Monocytes % 3.9 % (1.7-12.7); Neutrophils % 92.4 % (38.7-73.9); Platelet Count 122 T/CUMM (130-400); Red Blood Count 3.27 MC/CUMM (3.8-5.5); Red Cell Distribution Width 18.5 % (9.3-17.3); White Blood Count 9.2 T/CUMM (4-12)
[2020-12-29 05:25] LABS: Albumin 1.6 G/DL (3.4-5.0); Bilirubin,Total 0.6 MG/DL (0.20-1.00); Calcium 7.3 MG/DL (8.5-10.1); Osmolality,Calculated 310.9 MOS/KG (273-304); Potassium 3.1 MMOL/L (3.5-5.1); Total Protein 5.1 G/DL (6.4-8.2)
[2020-12-29] MEDS: HYDROCORTISONE 100 MG VIAL IV SCH ×3 (05:30→22:17)
[2020-12-29 05:55] LABS: Anisocytosis 1+; Band Neutrophils 23 % (0-10); Hypersegmented Neutrophil Few; Lymphocytes 4 % (20-55); Ovalocytes Few; Platelet Estimate Adequate; Poikilocytosis Slight; Segmented Neutrophils 72 % (50-85); Total Cells Counted 100
[2020-12-29 05:56] LABS: Tear Drop Cells Few
[2020-12-29] MEDS: RIFAMPIN INJ 600 MG in SODIUM CHLORIDE 0.9% 100 ML IV SCH (09:35)
[2020-12-29] MEDS: fentaNYL INJ 1,250 MCG in SODIUM CHLORIDE 0.9% 225 ML IV PRN ×2 (10:30→21:39)
[2020-12-29] MEDS ORDERED: POTASSIUM PHOSPHATE 30 MMOL in SODIUM CHLORIDE 0.9% 250 ML IV ONE (11:00)
[2020-12-29] MEDS: ENOXAPARIN 40 MG/0.4 ML SYRINGE SUBCUT SCH (20:18)
[2020-12-29] MEDS: PANTOPRAZOLE 40 MG VIAL IV SCH (22:17)
[2020-12-30] MEDS: ALBUTEROL/IPRATROPIUM 3 ML NEB RESP TX SCH ×4 (01:34→18:12)
[2020-12-30] MEDS: MEROPENEM 500 MG in SODIUM CHLORIDE 0.9% 100 ML IV SCH ×4 (01:47→21:11)
[2020-12-30] MEDS: MIDAZOLAM 100 MG in SODIUM CHLORIDE 0.9% 80 ML IV PRN ×2 (02:16→13:38)
[2020-12-30 04:51] LABS: ABG Base Excess 5.1 MMOL/L (-2.5-2.5); ABG HCO3 28.5 MMOL/L (20-26); ABG Oxygen Saturation 98.5 % (95-100); ABG PH 7.505 (7.35-7.45); ABG TCO2 29.7 MMOL/L (23-27)
[2020-12-30 04:57] LABS: Basophils % 0.1 % (0.0-0.8); Hematocrit 28.1 VOL% (42.0-52.0); Hemoglobin 8.2 GM/DL (14.0-18.0); Immature Granulocytes Absolute 0.07 #; Lymphocytes # 0.4 10*3/uL (1.4-4.0); Lymphocytes % 5.3 % (21.2-54.2); Mean Corpuscular HGB Conc 29.2 GM/DL (32-36); Mean Corpuscular Volume 84.9 FL (87-102); Mean Platelet Volume 12.3 FL (9.6-12.0); Monocytes % 8.4 % (1.7-12.7); NRBC # 0.02 10*3/uL; Neutrophils % 85.2 % (38.7-73.9); Platelet Count 131 T/CUMM (130-400); Red Blood Count 3.31 MC/CUMM (3.8-5.5); Red Cell Distribution Width 18.6 % (9.3-17.3); White Blood Count 6.8 T/CUMM (4-12)
[2020-12-30 05:24] LABS: Calcium 7.6 MG/DL (8.5-10.1); Osmolality,Calculated 310.1 MOS/KG (273-304); Potassium 3.5 MMOL/L (3.5-5.1)
[2020-12-30] MEDS: HYDROCORTISONE 100 MG VIAL IV SCH ×3 (06:12→22:07)
[2020-12-30] MEDS: fentaNYL INJ 1,250 MCG in SODIUM CHLORIDE 0.9% 225 ML IV PRN ×3 (06:23→19:04)
[2020-12-30] MEDS: RIFAMPIN INJ 600 MG in SODIUM CHLORIDE 0.9% 100 ML IV SCH (09:08)
[2020-12-30] MEDS: carvediloL 12.5 MG TABLET PO SCH ×2 (14:33→21:11)
[2020-12-30] MEDS: lisinopriL 5 MG TABLET PO SCH (14:33)
[2020-12-30] MEDS: ENOXAPARIN 40 MG/0.4 ML SYRINGE SUBCUT SCH (22:07)
[2020-12-30] MEDS: PANTOPRAZOLE 40 MG VIAL IV SCH (22:07)
[2020-12-31] MEDS: MIDAZOLAM 100 MG in SODIUM CHLORIDE 0.9% 80 ML IV PRN ×2 (00:01)
[2020-12-31] MEDS: fentaNYL INJ 1,250 MCG in SODIUM CHLORIDE 0.9% 225 ML IV PRN ×4 (00:44→22:10)
[2020-12-31] MEDS: ALBUTEROL/IPRATROPIUM 3 ML NEB RESP TX SCH ×4 (01:45→19:12)
[2020-12-31] MEDS: MEROPENEM 500 MG in SODIUM CHLORIDE 0.9% 100 ML IV SCH ×4 (02:53→19:34)
[2020-12-31 04:24] LABS: ABG Base Excess 4.8 MMOL/L (-2.5-2.5); ABG HCO3 28.7 MMOL/L (20-26); ABG Oxygen Saturation 98.3 % (95-100); ABG PCO2 37.5 MM HG (35-48); ABG PH 7.487 (7.35-7.45); ABG PO2 98.6 MM HG (80-95); ABG TCO2 26.5 MMOL/L (23-27)
[2020-12-31 04:33] LABS: Basophils % 0.2 % (0.0-0.8); Hematocrit 26.1 VOL% (42.0-52.0); Hemoglobin 7.4 GM/DL (14.0-18.0); Immature Granulocytes % 1.5 %; Immature Granulocytes Absolute 0.07 #; Lymphocytes # 0.3 10*3/uL (1.4-4.0); Lymphocytes % 5.4 % (21.2-54.2); Mean Corpuscular HGB Conc 28.4 GM/DL (32-36); Mean Corpuscular Volume 86.1 FL (87-102); Mean Platelet Volume 12.5 FL (9.6-12.0); Monocytes % 14.4 % (1.7-12.7); Neutrophils % 78.5 % (38.7-73.9); Platelet Count 151 T/CUMM (130-400); Red Blood Count 3.03 MC/CUMM (3.8-5.5); Red Cell Distribution Width 18.8 % (9.3-17.3); White Blood Count 4.8 T/CUMM (4-12)
[2020-12-31 04:39] LABS: Calcium 7.8 MG/DL (8.5-10.1); Potassium 3.5 MMOL/L (3.5-5.1)
[2020-12-31 04:57] LABS: Atypical Lymphocytes Few; Band Neutrophils 3 % (0-10); Hypochromasia 1+; Lymphocytes 7 % (20-55); Segmented Neutrophils 74 % (50-85); Total Cells Counted 100
[2020-12-31 04:58] LABS: Microcytosis 2+
[2020-12-31 04:59] LABS: Ovalocytes Few; Platelet Estimate Adequate
[2020-12-31] MEDS: HYDROCORTISONE 100 MG VIAL IV SCH ×3 (06:25→22:08)
[2020-12-31] MEDS ORDERED: FUROSEMIDE 40 MG/4 ML VIAL IV ONE (08:20)
[2020-12-31] MEDS: carvediloL 12.5 MG TABLET PO SCH ×2 (08:40→21:08)
[2020-12-31] MEDS: lisinopriL 5 MG TABLET PO SCH (08:40)
[2020-12-31] MEDS: RIFAMPIN INJ 600 MG in SODIUM CHLORIDE 0.9% 100 ML IV SCH (08:40)
[2020-12-31] MEDS: MORPHINE 2 MG/1 ML SYRINGE IV PRN ×5 (09:20→23:21)
[2020-12-31] MEDS: ENOXAPARIN 40 MG/0.4 ML SYRINGE SUBCUT SCH (21:09)
[2020-12-31] MEDS: PANTOPRAZOLE 40 MG VIAL IV SCH (22:05)
[2021-01-01] MEDS: ALBUTEROL/IPRATROPIUM 3 ML NEB RESP TX SCH ×4 (00:07→19:30)
[2021-01-01] MEDS: MEROPENEM 500 MG in SODIUM CHLORIDE 0.9% 100 ML IV SCH ×4 (03:08→20:16)
[2021-01-01 04:42] LABS: ABG Base Excess 6.7 MMOL/L (-2.5-2.5); ABG HCO3 30.3 MMOL/L (20-26); ABG PCO2 39.1 MM HG (35-48); ABG PH 7.507 (7.35-7.45); ABG PO2 71.3 MM HG (80-95); ABG TCO2 31.5 MMOL/L (23-27); Allen Test Positive
[2021-01-01 04:44] LABS: Eosinophils % 0.4 % (0.00-10.9); Hematocrit 28.1 VOL% (42.0-52.0); Hemoglobin 8.2 GM/DL (14.0-18.0); Immature Granulocytes % 1.8 %; Immature Granulocytes Absolute 0.13 #; Lymphocytes # 0.6 10*3/uL (1.4-4.0); Mean Corpuscular HGB Conc 29.2 GM/DL (32-36); Mean Corpuscular Volume 85.9 FL (87-102); Mean Platelet Volume 11.7 FL (9.6-12.0); Monocytes % 11.9 % (1.7-12.7); Neutrophils % 77.9 % (38.7-73.9); Platelet Count 213 T/CUMM (130-400); Red Blood Count 3.27 MC/CUMM (3.8-5.5); Red Cell Distribution Width 18.7 % (9.3-17.3)
[2021-01-01 05:14] LABS: Calcium 7.8 MG/DL (8.5-10.1); Osmolality,Calculated 300.3 MOS/KG (273-304); Potassium 3.2 MMOL/L (3.5-5.1)
[2021-01-01] MEDS: HYDROCORTISONE 100 MG VIAL IV SCH ×3 (06:19→22:44)
[2021-01-01] MEDS: MORPHINE 2 MG/1 ML SYRINGE IV PRN ×4 (06:24→14:45)
[2021-01-01] MEDS: fentaNYL INJ 1,250 MCG in SODIUM CHLORIDE 0.9% 225 ML IV PRN (06:25)
[2021-01-01] MEDS: lisinopriL 5 MG TABLET PO SCH (08:35)
[2021-01-01] MEDS: POTASSIUM BICARB EFFERVESCENT 20 MEQ TAB.EFF PO SCH ×3 (08:35→16:55)
[2021-01-01] MEDS: RIFAMPIN INJ 600 MG in SODIUM CHLORIDE 0.9% 100 ML IV SCH (08:35)
[2021-01-01] MEDS: carvediloL 12.5 MG TABLET PO SCH ×2 (08:35→20:16)
[2021-01-01] MEDS: FUROSEMIDE 40 MG TABLET PO SCH (10:00)
[2021-01-01] MEDS: oxyCODONE/ACETAMINOPHEN 5-325 MG TABLET PO PRN ×2 (10:00→18:33)
[2021-01-01] MEDS: traMADol 50 MG TABLET PO PRN (12:25)
[2021-01-01] MEDS: ENOXAPARIN 40 MG/0.4 ML SYRINGE SUBCUT SCH (20:16)
[2021-01-01] MEDS: PANTOPRAZOLE 40 MG VIAL IV SCH (22:48)
[2021-01-02] MEDS: ALBUTEROL/IPRATROPIUM 3 ML NEB RESP TX SCH ×4 (00:09→19:00)
[2021-01-02] MEDS: MEROPENEM 500 MG in SODIUM CHLORIDE 0.9% 100 ML IV SCH ×2 (02:31→08:44)
[2021-01-02 03:41] LABS: ABG HCO3 31.7 MMOL/L (20-26); ABG Oxygen Saturation 92.6 % (95-100); ABG PH 7.552 (7.35-7.45); ABG PO2 62.7 MM HG (80-95); ABG TCO2 28.1 MMOL/L (23-27)
[2021-01-02] MEDS: MORPHINE 2 MG/1 ML SYRINGE IV PRN (04:42)
[2021-01-02] MEDS: oxyCODONE/ACETAMINOPHEN 5-325 MG TABLET PO PRN ×2 (05:16→16:04)
[2021-01-02 05:48] LABS: Basophils % 0.1 % (0.0-0.8); Eosinophils # 0.1 10*3/uL (0.0-0.87); Eosinophils % 1.3 % (0.00-10.9); Hematocrit 30.8 VOL% (42.0-52.0); Hemoglobin 9.2 GM/DL (14.0-18.0); Immature Granulocytes % 2.9 %; Immature Granulocytes Absolute 0.23 #; Lymphocytes # 0.8 10*3/uL (1.4-4.0); Lymphocytes % 10.6 % (21.2-54.2); Mean Corpuscular HGB Conc 29.9 GM/DL (32-36); Mean Corpuscular Volume 82.8 FL (87-102); Mean Platelet Volume 12.4 FL (9.6-12.0); Monocytes % 11.3 % (1.7-12.7); Neutrophils % 73.8 % (38.7-73.9); Platelet Count 308 T/CUMM (130-400); Red Blood Count 3.72 MC/CUMM (3.8-5.5); Red Cell Distribution Width 18.6 % (9.3-17.3); White Blood Count 7.8 T/CUMM (4-12)
[2021-01-02] MEDS: HYDROCORTISONE 100 MG VIAL IV SCH ×3 (06:10→23:31)
[2021-01-02 06:11] LABS: Calcium 8.1 MG/DL (8.5-10.1); Osmolality,Calculated 294.4 MOS/KG (273-304); Potassium 3.1 MMOL/L (3.5-5.1)
[2021-01-02] MEDS: carvediloL 12.5 MG TABLET PO SCH ×2 (08:46→23:28)
[2021-01-02] MEDS: lisinopriL 5 MG TABLET PO SCH (08:46)
[2021-01-02] MEDS: FUROSEMIDE 40 MG TABLET PO SCH (08:46)
[2021-01-02] MEDS: RIFAMPIN INJ 600 MG in SODIUM CHLORIDE 0.9% 100 ML IV SCH (10:51)
[2021-01-02] MEDS ORDERED: POTASSIUM CHLORIDE 20 MEQ TABLET PO ONE (15:00)
[2021-01-02] MEDS: traMADol 50 MG TABLET PO PRN (23:24)
[2021-01-02] MEDS: PANTOPRAZOLE 40 MG VIAL IV SCH (23:28)
[2021-01-02] MEDS: ENOXAPARIN 40 MG/0.4 ML SYRINGE SUBCUT SCH (23:33)
[2021-01-03] MEDS: ALBUTEROL/IPRATROPIUM 3 ML NEB RESP TX SCH ×4 (00:25→18:55)
[2021-01-03 06:17] LABS: Basophils % 0.1 % (0.0-0.8); Eosinophils % 0.5 % (0.00-10.9); Hematocrit 32.9 VOL% (42.0-52.0); Hemoglobin 9.8 GM/DL (14.0-18.0); Immature Granulocytes % 3.2 %; Immature Granulocytes Absolute 0.25 #; Lymphocytes # 0.7 10*3/uL (1.4-4.0); Lymphocytes % 8.4 % (21.2-54.2); Mean Corpuscular HGB Conc 29.8 GM/DL (32-36); Mean Corpuscular Volume 83.1 FL (87-102); Mean Platelet Volume 12.3 FL (9.6-12.0); Monocytes % 8.3 % (1.7-12.7); Neutrophils % 79.5 % (38.7-73.9); Platelet Count 344 T/CUMM (130-400); Red Blood Count 3.96 MC/CUMM (3.8-5.5); Red Cell Distribution Width 18.8 % (9.3-17.3); White Blood Count 7.9 T/CUMM (4-12)
[2021-01-03] MEDS: HYDROCORTISONE 100 MG VIAL IV SCH ×3 (06:25→22:00)
[2021-01-03 06:36] LABS: Calcium 8.3 MG/DL (8.5-10.1); Potassium 3.3 MMOL/L (3.5-5.1)
[2021-01-03 06:38] LABS: Risk Ratio 5.5; VLDL Cholesterol 51.8 MG/DL
[2021-01-03 08:23] LABS: Eosinophils 2 % (0-10); Hypochromasia 1+; Lymphocytes 9 % (20-55); Microcytosis 1+; Ovalocytes Slight; Segmented Neutrophils 84 % (50-85); Total Cells Counted 100
[2021-01-03 08:24] LABS: Platelet Estimate Normal
[2021-01-03] MEDS ORDERED: ASPIRIN EC 81 MG TABLET PO SCH (09:00)
[2021-01-03] MEDS: traMADol 50 MG TABLET PO PRN ×2 (09:56→17:44)
[2021-01-03] MEDS: FUROSEMIDE 40 MG TABLET PO SCH (09:57)
[2021-01-03] MEDS: carvediloL 12.5 MG TABLET PO SCH ×2 (09:57→22:05)
[2021-01-03] MEDS: lisinopriL 5 MG TABLET PO SCH (09:57)
[2021-01-03] MEDS: SODIUM HYPOCHLORITE 0.25% IRRIG 473 ML BOTTLE TOP SCH (19:04)
[2021-01-03] MEDS: ENOXAPARIN 40 MG/0.4 ML SYRINGE SUBCUT SCH (22:05)
[2021-01-03] MEDS: PANTOPRAZOLE 40 MG VIAL IV SCH (22:06)
[2021-01-03] MEDS: oxyCODONE/ACETAMINOPHEN 5-325 MG TABLET PO PRN (23:32)
[2021-01-04] MEDS: ALBUTEROL/IPRATROPIUM 3 ML NEB RESP TX SCH ×4 (00:35→19:25)
[2021-01-04] MEDS: HYDROCORTISONE 100 MG VIAL IV SCH ×3 (06:43→22:15)
[2021-01-04 09:23] LABS: Calcium 8.3 MG/DL (8.5-10.1); Potassium 3.2 MMOL/L (3.5-5.1)
[2021-01-04] MEDS: traMADol 50 MG TABLET PO PRN ×2 (09:28→22:23)
[2021-01-04] MEDS: lisinopriL 5 MG TABLET PO SCH (09:29)
[2021-01-04] MEDS: FUROSEMIDE 40 MG TABLET PO SCH (09:29)
[2021-01-04] MEDS: carvediloL 12.5 MG TABLET PO SCH ×2 (09:29→22:25)
[2021-01-04 09:33] LABS: Basophils % 0.2 % (0.0-0.8); Eosinophils # 0.1 10*3/uL (0.0-0.87); Hematocrit 34.6 VOL% (42.0-52.0); Hemoglobin 10.2 GM/DL (14.0-18.0); Immature Granulocytes % 3.5 %; Immature Granulocytes Absolute 0.31 #; Lymphocytes # 0.4 10*3/uL (1.4-4.0); Lymphocytes % 4.8 % (21.2-54.2); Mean Corpuscular HGB Conc 29.5 GM/DL (32-36); Mean Corpuscular Volume 83.6 FL (87-102); Mean Platelet Volume 11.8 FL (9.6-12.0); Monocytes % 7.5 % (1.7-12.7); Platelet Count 381 T/CUMM (130-400); Red Blood Count 4.14 MC/CUMM (3.8-5.5); Red Cell Distribution Width 18.9 % (9.3-17.3); White Blood Count 8.9 T/CUMM (4-12)
[2021-01-04 10:02] LABS: Band Neutrophils 1 % (0-10); Hypochromasia 1+; Lymphocytes 5 % (20-55); Microcytosis 1+; Myelocytes 1 %; Segmented Neutrophils 88 % (50-85); Total Cells Counted 100
[2021-01-04] MEDS: SODIUM HYPOCHLORITE 0.25% IRRIG 473 ML BOTTLE TOP SCH (10:02)
[2021-01-04 10:03] LABS: Ovalocytes Slight; Platelet Estimate Normal
[2021-01-04] MEDS: PANTOPRAZOLE 40 MG VIAL IV SCH (22:20)
[2021-01-04] MEDS: ENOXAPARIN 40 MG/0.4 ML SYRINGE SUBCUT SCH (22:25)
[2021-01-05] MEDS: ALBUTEROL/IPRATROPIUM 3 ML NEB RESP TX SCH ×4 (00:10→19:20)
[2021-01-05 04:54] LABS: Basophils % 0.2 % (0.0-0.8); Eosinophils % 0.3 % (0.00-10.9); Hematocrit 32.5 VOL% (42.0-52.0); Hemoglobin 9.7 GM/DL (14.0-18.0); Immature Granulocytes % 2.9 %; Immature Granulocytes Absolute 0.25 #; Lymphocytes # 0.8 10*3/uL (1.4-4.0); Lymphocytes % 9.3 % (21.2-54.2); Mean Corpuscular HGB Conc 29.8 GM/DL (32-36); Mean Corpuscular Volume 83.5 FL (87-102); Mean Platelet Volume 11.7 FL (9.6-12.0); Monocytes % 8.1 % (1.7-12.7); Neutrophils % 79.2 % (38.7-73.9); Platelet Count 375 T/CUMM (130-400); Red Blood Count 3.89 MC/CUMM (3.8-5.5); Red Cell Distribution Width 18.9 % (9.3-17.3); White Blood Count 8.8 T/CUMM (4-12)
[2021-01-05 05:25] LABS: Calcium 8.2 MG/DL (8.5-10.1); Osmolality,Calculated 282.1 MOS/KG (273-304); Potassium 3.6 MMOL/L (3.5-5.1)
[2021-01-05] MEDS: HYDROCORTISONE 100 MG VIAL IV SCH ×2 (05:35→16:47)
[2021-01-05] MEDS ORDERED: SODIUM CHLORIDE 0.9% 1,000 ML IV SCH (07:30)
[2021-01-05] MEDS ORDERED: LIDOCAINE 2% 5 ML VIAL ONE (09:19)
[2021-01-05] MEDS ORDERED: ETOMIDATE 40 MG/20 ML VIAL IV ONE (09:20)
[2021-01-05] MEDS ORDERED: HYDROCORTISONE 100 MG VIAL ONE (09:20)
[2021-01-05] MEDS: lisinopriL 5 MG TABLET PO SCH ×2 (13:21→13:28)
[2021-01-05] MEDS: SODIUM HYPOCHLORITE 0.25% IRRIG 473 ML BOTTLE TOP SCH (13:28)
[2021-01-05] MEDS: FUROSEMIDE 40 MG TABLET PO SCH (13:28)
[2021-01-05] MEDS: carvediloL 12.5 MG TABLET PO SCH ×2 (13:28→21:21)
[2021-01-05] MEDS: ENOXAPARIN 40 MG/0.4 ML SYRINGE SUBCUT SCH (21:24)
[2021-01-05] MEDS: DESITIN 4OZ/NYSTATIN 15 GRAM MIXTURE PASTE TOP SCH (21:30)
[2021-01-05] MEDS: traMADol 50 MG TABLET PO PRN (21:30)
[2021-01-05] MEDS: PANTOPRAZOLE 40 MG VIAL IV SCH (21:32)
[2021-01-06] MEDS: ALBUTEROL/IPRATROPIUM 3 ML NEB RESP TX SCH ×4 (00:17→19:34)
[2021-01-06] MEDS: HYDROCORTISONE 100 MG VIAL IV SCH ×3 (00:20→17:43)
[2021-01-06 05:44] LABS: Basophils % 0.3 % (0.0-0.8); Eosinophils % 0.1 % (0.00-10.9); Hemoglobin 9.2 GM/DL (14.0-18.0); Immature Granulocytes % 2.5 %; Immature Granulocytes Absolute 0.23 #; Lymphocytes # 0.5 10*3/uL (1.4-4.0); Lymphocytes % 5.7 % (21.2-54.2); Mean Corpuscular HGB Conc 29.7 GM/DL (32-36); Mean Corpuscular Volume 85.2 FL (87-102); Mean Platelet Volume 12.2 FL (9.6-12.0); Monocytes % 5.7 % (1.7-12.7); Neutrophils % 85.7 % (38.7-73.9); Platelet Count 387 T/CUMM (130-400); Red Blood Count 3.64 MC/CUMM (3.8-5.5); Red Cell Distribution Width 19.2 % (9.3-17.3); White Blood Count 9.3 T/CUMM (4-12)
[2021-01-06 06:05] LABS: Calcium 8.2 MG/DL (8.5-10.1); Osmolality,Calculated 281.3 MOS/KG (273-304); Potassium 2.9 MMOL/L (3.5-5.1)
[2021-01-06] MEDS: carvediloL 12.5 MG TABLET PO SCH ×2 (08:46→21:45)
[2021-01-06] MEDS: FUROSEMIDE 40 MG TABLET PO SCH (08:46)
[2021-01-06] MEDS: SODIUM HYPOCHLORITE 0.25% IRRIG 473 ML BOTTLE TOP SCH (08:54)
[2021-01-06] MEDS: DESITIN 4OZ/NYSTATIN 15 GRAM MIXTURE PASTE TOP SCH ×2 (08:54→21:48)
[2021-01-06] MEDS ORDERED: POTASSIUM CHLORIDE 20 MEQ PACK PO ONE ×2 (09:00→15:34)
[2021-01-06] MEDS: lisinopriL 5 MG TABLET PO SCH (09:05)
[2021-01-06] MEDS: traMADol 50 MG TABLET PO PRN (15:44)
[2021-01-06] MEDS: ENOXAPARIN 40 MG/0.4 ML SYRINGE SUBCUT SCH (21:46)
[2021-01-06] MEDS: PANTOPRAZOLE 40 MG VIAL IV SCH (21:48)
[2021-01-07] MEDS: ALBUTEROL/IPRATROPIUM 3 ML NEB RESP TX SCH ×4 (00:11→19:13)
[2021-01-07] MEDS: traMADol 50 MG TABLET PO PRN ×3 (00:13→22:17)
[2021-01-07] MEDS: HYDROCORTISONE 100 MG VIAL IV SCH ×2 (00:14→08:41)
[2021-01-07] MEDS: carvediloL 12.5 MG TABLET PO SCH ×2 (08:41→20:19)
[2021-01-07] MEDS: FUROSEMIDE 40 MG TABLET PO SCH (08:41)
[2021-01-07] MEDS: DESITIN 4OZ/NYSTATIN 15 GRAM MIXTURE PASTE TOP SCH ×2 (08:43→20:19)
[2021-01-07] MEDS: SODIUM HYPOCHLORITE 0.25% IRRIG 473 ML BOTTLE TOP SCH (08:43)
[2021-01-07] MEDS: lisinopriL 5 MG TABLET PO SCH (08:49)
[2021-01-07 09:16] LABS: Calcium 8.4 MG/DL (8.5-10.1); Osmolality,Calculated 287.8 MOS/KG (273-304); Potassium 3.4 MMOL/L (3.5-5.1)
[2021-01-07 09:46] LABS: Basophils % 0.4 % (0.0-0.8); Eosinophils % 0.3 % (0.00-10.9); Hematocrit 32.4 VOL% (42.0-52.0); Hemoglobin 9.8 GM/DL (14.0-18.0); Immature Granulocytes % 3.7 %; Immature Granulocytes Absolute 0.36 #; Lymphocytes # 1.3 10*3/uL (1.4-4.0); Lymphocytes % 12.8 % (21.2-54.2); Mean Corpuscular HGB Conc 30.2 GM/DL (32-36); Mean Corpuscular Volume 83.3 FL (87-102); Mean Platelet Volume 11.2 FL (9.6-12.0); Monocytes % 10.9 % (1.7-12.7); Neutrophils % 71.9 % (38.7-73.9); Platelet Count 396 T/CUMM (130-400); Red Blood Count 3.89 MC/CUMM (3.8-5.5); Red Cell Distribution Width 19.3 % (9.3-17.3); White Blood Count 9.7 T/CUMM (4-12)
[2021-01-07] MEDS: oxyCODONE/ACETAMINOPHEN 5-325 MG TABLET PO PRN (18:59)
[2021-01-07] MEDS: ENOXAPARIN 40 MG/0.4 ML SYRINGE SUBCUT SCH (20:18)
[2021-01-08] MEDS: ALBUTEROL/IPRATROPIUM 3 ML NEB RESP TX SCH ×4 (00:07→19:45)
[2021-01-08] MEDS: PANTOPRAZOLE 40 MG TABLET PO SCH (06:00)
[2021-01-08 06:21] LABS: Basophils # 0.1 10*3/uL (0.0-0.2); Basophils % 0.6 % (0.0-0.8); Eosinophils # 0.1 10*3/uL (0.0-0.87); Eosinophils % 0.7 % (0.00-10.9); Hematocrit 32.1 VOL% (42.0-52.0); Hemoglobin 9.4 GM/DL (14.0-18.0); Immature Granulocytes % 6.1 %; Immature Granulocytes Absolute 0.55 #; Lymphocytes # 1.3 10*3/uL (1.4-4.0); Lymphocytes % 13.9 % (21.2-54.2); Mean Corpuscular HGB Conc 29.3 GM/DL (32-36); Mean Corpuscular Volume 86.1 FL (87-102); Mean Platelet Volume 11.4 FL (9.6-12.0); Monocytes % 10.5 % (1.7-12.7); Neutrophils % 68.2 % (38.7-73.9); Platelet Count 361 T/CUMM (130-400); Red Blood Count 3.73 MC/CUMM (3.8-5.5); Red Cell Distribution Width 19.5 % (9.3-17.3); White Blood Count 9.1 T/CUMM (4-12)
[2021-01-08 06:39] LABS: Calcium 8.2 MG/DL (8.5-10.1); Potassium 2.7 MMOL/L (3.5-5.1)
[2021-01-08 06:43] LABS: Lymphocytes 14 % (20-55); Nucleated Red Blood Cells 1 (0-5); Platelet Estimate Adequate; Segmented Neutrophils 77 % (50-85); Total Cells Counted 100
[2021-01-08 06:44] LABS: Hypochromasia 1+; Microcytosis 1+
[2021-01-08] MEDS ORDERED: MAGNESIUM SULF RIDER 2 GM/50 ML PREMIX IV ONE (09:00)
[2021-01-08] MEDS ORDERED: POTASSIUM CHLORIDE 20 MEQ PACK PO ONE (09:00)
[2021-01-08] MEDS: predniSONE 20 MG TABLET PO SCH (09:21)
[2021-01-08] MEDS: carvediloL 12.5 MG TABLET PO SCH ×2 (09:21→20:52)
[2021-01-08] MEDS: FUROSEMIDE 40 MG TABLET PO SCH (09:21)
[2021-01-08] MEDS: lisinopriL 5 MG TABLET PO SCH (09:22)
[2021-01-08] MEDS: SODIUM HYPOCHLORITE 0.25% IRRIG 473 ML BOTTLE TOP SCH (09:22)
[2021-01-08] MEDS: ERGOCALCIFEROL 50,000 UNIT CAPSULE PO SCH (09:22)
[2021-01-08] MEDS: oxyCODONE/ACETAMINOPHEN 5-325 MG TABLET PO PRN ×2 (11:28→18:05)
[2021-01-08] MEDS: DESITIN 4OZ/NYSTATIN 15 GRAM MIXTURE PASTE TOP SCH ×2 (11:31→20:53)
[2021-01-08] MEDS: ENOXAPARIN 40 MG/0.4 ML SYRINGE SUBCUT SCH (20:54)
[2021-01-08] MEDS: traMADol 50 MG TABLET PO PRN (22:08)
[2021-01-09] MEDS: ALBUTEROL/IPRATROPIUM 3 ML NEB RESP TX SCH ×4 (01:00→19:36)
[2021-01-09 05:02] LABS: Basophils # 0.1 10*3/uL (0.0-0.2); Basophils % 0.5 % (0.0-0.8); Eosinophils % 0.4 % (0.00-10.9); Hematocrit 31.3 VOL% (42.0-52.0); Hemoglobin 9.1 GM/DL (14.0-18.0); Immature Granulocytes % 6.8 %; Immature Granulocytes Absolute 0.65 #; Lymphocytes # 1.6 10*3/uL (1.4-4.0); Mean Corpuscular HGB Conc 29.1 GM/DL (32-36); Mean Corpuscular Volume 85.5 FL (87-102); Mean Platelet Volume 11.6 FL (9.6-12.0); Monocytes % 9.9 % (1.7-12.7); Neutrophils % 65.4 % (38.7-73.9); Platelet Count 373 T/CUMM (130-400); Red Blood Count 3.66 MC/CUMM (3.8-5.5); Red Cell Distribution Width 19.9 % (9.3-17.3); White Blood Count 9.5 T/CUMM (4-12)
[2021-01-09 05:21] LABS: Calcium 8.3 MG/DL (8.5-10.1)
[2021-01-09 05:34] LABS: Eosinophils 1 % (0-10); Hypochromasia 1+; Lymphocytes 20 % (20-55); Microcytosis 1+; Ovalocytes Slight; Platelet Estimate Adequate; Segmented Neutrophils 70 % (50-85); Total Cells Counted 100
[2021-01-09] MEDS: PANTOPRAZOLE 40 MG TABLET PO SCH (06:18)
[2021-01-09] MEDS: FUROSEMIDE 40 MG TABLET PO SCH (09:11)
[2021-01-09] MEDS: ACETAMINOPHEN 325 MG TABLET PO PRN (09:11)
[2021-01-09] MEDS: carvediloL 12.5 MG TABLET PO SCH ×2 (09:11→20:39)
[2021-01-09] MEDS: predniSONE 20 MG TABLET PO SCH (09:21)
[2021-01-09] MEDS: lisinopriL 5 MG TABLET PO SCH (09:23)
[2021-01-09] MEDS: POTASSIUM CHLORIDE 20 MEQ PACK PO SCH ×4 (10:58→16:06)
[2021-01-09] MEDS: oxyCODONE/ACETAMINOPHEN 5-325 MG TABLET PO PRN ×3 (10:59→22:13)
[2021-01-09 14:20] LABS: Bacteria,Urine Moderate /HPF (Few); Bilirubin,Urine Negative (Negative); Blood, Urine Negative (Negative); Glucose,Urine (UA) Negative (Negative); Ketones,Urine Negative (Negative); Mucus,Urine Occasional /LPF (Occasional); Nitrite,Urine Negative (Negative); Protein,Urine Negative; RBC,Urine 2 /HPF (0-4); Squamous Epithelial Cell,Urine Occasional /HPF (0-10); Urine Appearance CLEAR (Clear); Urine Color Yellow (Yellow); Urine Specific Gravity 1.006 (1.001-1.035); Urine Urobilinogen < 2.0 EU/DL (0.2-1.0)
[2021-01-09] MEDS: LEVOFLOXACIN INJ 750 MG/150 ML PREMIX IV SCH (14:28)
[2021-01-09] MEDS: SODIUM HYPOCHLORITE 0.25% IRRIG 473 ML BOTTLE TOP SCH (17:59)
[2021-01-09] MEDS: DESITIN 4OZ/NYSTATIN 15 GRAM MIXTURE PASTE TOP SCH ×2 (17:59→20:40)
[2021-01-09] MEDS: ENOXAPARIN 40 MG/0.4 ML SYRINGE SUBCUT SCH (20:38)
[2021-01-10] MEDS: ALBUTEROL/IPRATROPIUM 3 ML NEB RESP TX SCH ×4 (00:50→19:26)
[2021-01-10] MEDS: oxyCODONE/ACETAMINOPHEN 5-325 MG TABLET PO PRN ×5 (02:43→23:06)
[2021-01-10 06:08] LABS: Basophils # 0.1 10*3/uL (0.0-0.2); Basophils % 0.9 % (0.0-0.8); Eosinophils # 0.1 10*3/uL (0.0-0.87); Eosinophils % 0.5 % (0.00-10.9); Hematocrit 30.8 VOL% (42.0-52.0); Hemoglobin 9.5 GM/DL (14.0-18.0); Immature Granulocytes % 7.9 %; Immature Granulocytes Absolute 0.78 #; Lymphocytes # 1.6 10*3/uL (1.4-4.0); Lymphocytes % 16.6 % (21.2-54.2); Mean Corpuscular HGB Conc 30.8 GM/DL (32-36); Mean Corpuscular Volume 84.6 FL (87-102); Mean Platelet Volume 10.6 FL (9.6-12.0); Monocytes % 10.4 % (1.7-12.7); Neutrophils % 63.7 % (38.7-73.9); Platelet Count 355 T/CUMM (130-400); Red Blood Count 3.64 MC/CUMM (3.8-5.5); Red Cell Distribution Width 20.3 % (9.3-17.3); White Blood Count 9.8 T/CUMM (4-12)
[2021-01-10] MEDS: PANTOPRAZOLE 40 MG TABLET PO SCH (06:10)
[2021-01-10 06:36] LABS: Calcium 8.7 MG/DL (8.5-10.1); Osmolality,Calculated 278.4 MOS/KG (273-304); Potassium 3.7 MMOL/L (3.5-5.1)
[2021-01-10] MEDS: predniSONE 20 MG TABLET PO SCH (08:44)
[2021-01-10] MEDS: carvediloL 12.5 MG TABLET PO SCH ×2 (08:44→20:56)
[2021-01-10] MEDS: DESITIN 4OZ/NYSTATIN 15 GRAM MIXTURE PASTE TOP SCH ×2 (10:08→23:07)
[2021-01-10] MEDS: SODIUM HYPOCHLORITE 0.25% IRRIG 473 ML BOTTLE TOP SCH (10:08)
[2021-01-10 11:00] LABS: Calcium 8.5 MG/DL (8.5-10.1); Osmolality,Calculated 285.8 MOS/KG (273-304); Potassium 3.5 MMOL/L (3.5-5.1)
[2021-01-10 12:27] LABS: Hypochromasia 3+; Lymphocytes 7 % (20-55); Metamyelocytes 1 %; Ovalocytes Few; Platelet Estimate Normal; Segmented Neutrophils 82 % (50-85); Total Cells Counted 100
[2021-01-10] MEDS: LEVOFLOXACIN INJ 750 MG/150 ML PREMIX IV SCH (13:57)
[2021-01-10] MEDS: GABAPENTIN 100 MG CAPSULE PO SCH ×2 (14:58→20:56)
[2021-01-10] MEDS: ENOXAPARIN 40 MG/0.4 ML SYRINGE SUBCUT SCH (20:55)
[2021-01-11] MEDS: ALBUTEROL/IPRATROPIUM 3 ML NEB RESP TX SCH ×4 (00:15→19:21)
[2021-01-11 06:28] LABS: Calcium 8.8 MG/DL (8.5-10.1); Osmolality,Calculated 284.1 MOS/KG (273-304); Potassium 3.4 MMOL/L (3.5-5.1)
[2021-01-11] MEDS: PANTOPRAZOLE 40 MG TABLET PO SCH (06:46)
[2021-01-11 07:13] LABS: Basophils # 0.1 10*3/uL (0.0-0.2); Basophils % 0.5 % (0.0-0.8); Eosinophils # 0.1 10*3/uL (0.0-0.87); Eosinophils % 0.8 % (0.00-10.9); Hematocrit 32.3 VOL% (42.0-52.0); Hemoglobin 9.4 GM/DL (14.0-18.0); Immature Granulocytes % 9.6 %; Immature Granulocytes Absolute 0.97 #; Lymphocytes # 1.6 10*3/uL (1.4-4.0); Lymphocytes % 16.2 % (21.2-54.2); Mean Corpuscular HGB Conc 29.1 GM/DL (32-36); Mean Corpuscular Volume 87.5 FL (87-102); Mean Platelet Volume 11.6 FL (9.6-12.0); Monocytes % 9.5 % (1.7-12.7); Neutrophils % 63.4 % (38.7-73.9); Platelet Count 361 T/CUMM (130-400); Red Blood Count 3.69 MC/CUMM (3.8-5.5); Red Cell Distribution Width 20.6 % (9.3-17.3); White Blood Count 10.1 T/CUMM (4-12)
[2021-01-11 08:55] LABS: Lymphocytes 6 % (20-55); Segmented Neutrophils 85 % (50-85); Total Cells Counted 100
[2021-01-11 08:56] LABS: Hypochromasia 2+; Platelet Estimate Normal
[2021-01-11] MEDS: carvediloL 12.5 MG TABLET PO SCH ×2 (09:37→22:30)
[2021-01-11] MEDS: GABAPENTIN 100 MG CAPSULE PO SCH ×3 (09:37→22:30)
[2021-01-11] MEDS: predniSONE 20 MG TABLET PO SCH (09:37)
[2021-01-11] MEDS: POTASSIUM CHLORIDE 20 MEQ TABLET PO PRN ×2 (09:37→11:27)
[2021-01-11] MEDS: SODIUM HYPOCHLORITE 0.25% IRRIG 473 ML BOTTLE TOP SCH (09:39)
[2021-01-11] MEDS: DESITIN 4OZ/NYSTATIN 15 GRAM MIXTURE PASTE TOP SCH ×2 (09:39→22:30)
[2021-01-11] MEDS: LEVOFLOXACIN INJ 750 MG/150 ML PREMIX IV SCH (11:27)
[2021-01-11] MEDS ORDERED: SODIUM CHLORIDE 0.9% 1,000 ML IV PRN (16:31)
[2021-01-11] MEDS: ENOXAPARIN 40 MG/0.4 ML SYRINGE SUBCUT SCH (22:30)
[2021-01-12] MEDS: ALBUTEROL/IPRATROPIUM 3 ML NEB RESP TX SCH ×4 (00:04→20:04)
[2021-01-12] MEDS ORDERED: diphenhydrAMINE CAP 25 MG CAPSULE PO PRN (02:39)
[2021-01-12 05:38] LABS: Basophils # 0.1 10*3/uL (0.0-0.2); Basophils % 0.8 % (0.0-0.8); Eosinophils # 0.1 10*3/uL (0.0-0.87); Eosinophils % 0.6 % (0.00-10.9); Hemoglobin 9.8 GM/DL (14.0-18.0); Immature Granulocytes % 7.8 %; Immature Granulocytes Absolute 0.93 #; Lymphocytes # 1.4 10*3/uL (1.4-4.0); Lymphocytes % 11.6 % (21.2-54.2); Mean Corpuscular HGB Conc 29.7 GM/DL (32-36); Mean Corpuscular Volume 85.1 FL (87-102); Mean Platelet Volume 11.2 FL (9.6-12.0); Monocytes % 9.3 % (1.7-12.7); Neutrophils % 69.9 % (38.7-73.9); Platelet Count 342 T/CUMM (130-400); Red Blood Count 3.88 MC/CUMM (3.8-5.5); Red Cell Distribution Width 20.4 % (9.3-17.3); White Blood Count 11.9 T/CUMM (4-12)
[2021-01-12 05:44] LABS: Calcium 9.1 MG/DL (8.5-10.1); Osmolality,Calculated 283.3 MOS/KG (273-304); Potassium 3.5 MMOL/L (3.5-5.1)
[2021-01-12 05:45] LABS: Band Neutrophils 1 % (0-10); Hypochromasia 1+; Lymphocytes 12 % (20-55); Microcytosis 1+; Ovalocytes Slight; Platelet Estimate Adequate; Segmented Neutrophils 80 % (50-85); Total Cells Counted 100
[2021-01-12] MEDS: PANTOPRAZOLE 40 MG TABLET PO SCH (06:12)
[2021-01-12] MEDS: carvediloL 12.5 MG TABLET PO SCH ×2 (08:44→21:35)
[2021-01-12] MEDS: predniSONE 20 MG TABLET PO SCH (08:44)
[2021-01-12] MEDS: GABAPENTIN 100 MG CAPSULE PO SCH (08:44)
[2021-01-12] MEDS: DESITIN 4OZ/NYSTATIN 15 GRAM MIXTURE PASTE TOP SCH ×2 (08:45→21:35)
[2021-01-12] MEDS: SODIUM HYPOCHLORITE 0.25% IRRIG 473 ML BOTTLE TOP SCH (08:45)
[2021-01-12] MEDS: LEVOFLOXACIN INJ 750 MG/150 ML PREMIX IV SCH (11:20)
[2021-01-12] MEDS: GABAPENTIN 300 MG CAPSULE PO SCH ×2 (15:07→21:35)
[2021-01-12] MEDS: ENOXAPARIN 40 MG/0.4 ML SYRINGE SUBCUT SCH (21:34)
[2021-01-12] MEDS: ACETAMINOPHEN 325 MG TABLET PO PRN (21:45)
[2021-01-13] MEDS: ALBUTEROL/IPRATROPIUM 3 ML NEB RESP TX SCH ×5 (01:08→23:00)
[2021-01-13 04:52] LABS: Basophils # 0.1 10*3/uL (0.0-0.2); Basophils % 0.9 % (0.0-0.8); Eosinophils # 0.1 10*3/uL (0.0-0.87); Eosinophils % 0.5 % (0.00-10.9); Hematocrit 32.1 VOL% (42.0-52.0); Hemoglobin 9.8 GM/DL (14.0-18.0); Immature Granulocytes % 8.4 %; Immature Granulocytes Absolute 1.08 #; Lymphocytes # 1.6 10*3/uL (1.4-4.0); Lymphocytes % 12.3 % (21.2-54.2); Mean Corpuscular HGB Conc 30.5 GM/DL (32-36); Mean Corpuscular Volume 84.7 FL (87-102); Mean Platelet Volume 10.3 FL (9.6-12.0); Monocytes % 8.7 % (1.7-12.7); Neutrophils % 69.2 % (38.7-73.9); Platelet Count 287 T/CUMM (130-400); Red Blood Count 3.79 MC/CUMM (3.8-5.5); Red Cell Distribution Width 20.4 % (9.3-17.3); White Blood Count 12.8 T/CUMM (4-12)
[2021-01-13 05:09] LABS: Calcium 8.6 MG/DL (8.5-10.1); Potassium 3.6 MMOL/L (3.5-5.1)
[2021-01-13 05:30] LABS: Eosinophils 1 % (0-10); Lymphocytes 14 % (20-55); Segmented Neutrophils 75 % (50-85); Total Cells Counted 100
[2021-01-13 05:31] LABS: Hypochromasia 1+; Microcytosis 1+; Ovalocytes Few; Platelet Estimate Normal
[2021-01-13] MEDS: PANTOPRAZOLE 40 MG TABLET PO SCH (07:10)
[2021-01-13] MEDS: SODIUM CHLORIDE 0.9% 1,000 ML IV SCH ×2 (09:34→23:50)
[2021-01-13] MEDS: predniSONE 20 MG TABLET PO SCH (09:35)
[2021-01-13] MEDS: carvediloL 12.5 MG TABLET PO SCH ×2 (09:36→21:22)
[2021-01-13] MEDS: GABAPENTIN 300 MG CAPSULE PO SCH ×3 (09:36→21:22)
[2021-01-13] MEDS: SODIUM HYPOCHLORITE 0.25% IRRIG 473 ML BOTTLE TOP SCH (09:37)
[2021-01-13] MEDS: DESITIN 4OZ/NYSTATIN 15 GRAM MIXTURE PASTE TOP SCH ×2 (09:37→21:29)
[2021-01-13] MEDS: ENOXAPARIN 40 MG/0.4 ML SYRINGE SUBCUT SCH (21:22)
[2021-01-14] MEDS: ALBUTEROL/IPRATROPIUM 3 ML NEB RESP TX SCH ×4 (00:42→19:30)
[2021-01-14 06:57] LABS: Calcium 8.8 MG/DL (8.5-10.1); Osmolality,Calculated 289.7 MOS/KG (273-304); Potassium 3.5 MMOL/L (3.5-5.1)
[2021-01-14 07:07] LABS: Basophils # 0.1 10*3/uL (0.0-0.2); Basophils % 0.7 % (0.0-0.8); Eosinophils # 0.1 10*3/uL (0.0-0.87); Eosinophils % 0.6 % (0.00-10.9); Hematocrit 32.8 VOL% (42.0-52.0); Immature Granulocytes % 8.1 %; Immature Granulocytes Absolute 0.96 #; Lymphocytes # 1.6 10*3/uL (1.4-4.0); Lymphocytes % 13.1 % (21.2-54.2); Mean Corpuscular HGB Conc 29.9 GM/DL (32-36); Mean Corpuscular Volume 86.5 FL (87-102); Monocytes % 7.8 % (1.7-12.7); Neutrophils % 69.7 % (38.7-73.9); Platelet Count 267 T/CUMM (130-400); Red Blood Count 3.79 MC/CUMM (3.8-5.5); Red Cell Distribution Width 20.4 % (9.3-17.3); White Blood Count 11.9 T/CUMM (4-12)
[2021-01-14 07:08] LABS: Hemoglobin 9.8 GM/DL (14.0-18.0)
[2021-01-14 07:12] LABS: Hypochromasia 1+; Lymphocytes 14 % (20-55); Microcytosis 1+; Platelet Estimate Adequate; Segmented Neutrophils 80 % (50-85); Total Cells Counted 100
[2021-01-14] MEDS: PANTOPRAZOLE 40 MG TABLET PO SCH (07:37)
[2021-01-14] MEDS: GABAPENTIN 300 MG CAPSULE PO SCH ×3 (08:33→20:54)
[2021-01-14] MEDS: carvediloL 12.5 MG TABLET PO SCH ×2 (08:33→20:53)
[2021-01-14] MEDS: predniSONE 20 MG TABLET PO SCH (08:33)
[2021-01-14] MEDS: SODIUM HYPOCHLORITE 0.25% IRRIG 473 ML BOTTLE TOP SCH (08:34)
[2021-01-14] MEDS: DESITIN 4OZ/NYSTATIN 15 GRAM MIXTURE PASTE TOP SCH ×2 (08:34→20:55)
[2021-01-14] MEDS: ACETAMINOPHEN 325 MG TABLET PO PRN ×2 (12:28→20:55)
[2021-01-14] MEDS: VANCOMYCIN INJ 1,000 MG in SODIUM CHLORIDE 0.9% 250 ML IV SCH (15:15)
[2021-01-14] MEDS: GENTAMICIN INJ 80 MG/50 ML PREMIX IV SCH (17:27)
[2021-01-14] MEDS: ENOXAPARIN 40 MG/0.4 ML SYRINGE SUBCUT SCH (20:53)
[2021-01-15] MEDS: ALBUTEROL/IPRATROPIUM 3 ML NEB RESP TX SCH ×4 (00:10→19:16)
[2021-01-15] MEDS: VANCOMYCIN INJ 1,000 MG in SODIUM CHLORIDE 0.9% 250 ML IV SCH ×2 (02:49→15:08)
[2021-01-15] MEDS: GENTAMICIN INJ 80 MG/50 ML PREMIX IV SCH ×2 (04:05→16:40)
[2021-01-15] MEDS: PANTOPRAZOLE 40 MG TABLET PO SCH (05:47)
[2021-01-15 06:02] LABS: Calcium 8.5 MG/DL (8.5-10.1); Osmolality,Calculated 291.6 MOS/KG (273-304); Potassium 3.5 MMOL/L (3.5-5.1)
[2021-01-15 06:18] LABS: Basophils # 0.1 10*3/uL (0.0-0.2); Basophils % 0.7 % (0.0-0.8); Eosinophils % 0.4 % (0.00-10.9); Hematocrit 30.7 VOL% (42.0-52.0); Hemoglobin 9.1 GM/DL (14.0-18.0); Immature Granulocytes Absolute 0.84 #; Lymphocytes # 1.5 10*3/uL (1.4-4.0); Lymphocytes % 14.4 % (21.2-54.2); Mean Corpuscular HGB Conc 29.6 GM/DL (32-36); Mean Corpuscular Volume 87.2 FL (87-102); Mean Platelet Volume 11.7 FL (9.6-12.0); Monocytes % 7.5 % (1.7-12.7); Platelet Count 168 T/CUMM (130-400); Red Blood Count 3.52 MC/CUMM (3.8-5.5); Red Cell Distribution Width 20.2 % (9.3-17.3); White Blood Count 10.5 T/CUMM (4-12)
[2021-01-15 06:23] LABS: Eosinophils 2 % (0-10); Hypochromasia 1+; Lymphocytes 13 % (20-55); Microcytosis 1+; Segmented Neutrophils 78 % (50-85); Total Cells Counted 100
[2021-01-15 06:24] LABS: Ovalocytes Few; Platelet Estimate Adequate
[2021-01-15] MEDS: ERGOCALCIFEROL 50,000 UNIT CAPSULE PO SCH (09:19)
[2021-01-15] MEDS: predniSONE 20 MG TABLET PO SCH (09:19)
[2021-01-15] MEDS: GABAPENTIN 300 MG CAPSULE PO SCH ×3 (09:19→20:50)
[2021-01-15] MEDS: carvediloL 12.5 MG TABLET PO SCH ×2 (09:19→20:49)
[2021-01-15] MEDS: DESITIN 4OZ/NYSTATIN 15 GRAM MIXTURE PASTE TOP SCH ×2 (09:21→20:50)
[2021-01-15] MEDS: SODIUM HYPOCHLORITE 0.25% IRRIG 473 ML BOTTLE TOP SCH (09:21)
[2021-01-15] MEDS: ACETAMINOPHEN 325 MG TABLET PO PRN ×2 (11:15→17:24)
[2021-01-15] MEDS: ENOXAPARIN 40 MG/0.4 ML SYRINGE SUBCUT SCH (20:49)
[2021-01-16] MEDS: ALBUTEROL/IPRATROPIUM 3 ML NEB RESP TX SCH ×5 (00:37→23:40)
[2021-01-16] MEDS: VANCOMYCIN INJ 1,000 MG in SODIUM CHLORIDE 0.9% 250 ML IV SCH ×2 (03:00→17:14)
[2021-01-16] MEDS: GENTAMICIN INJ 80 MG/50 ML PREMIX IV SCH ×2 (04:12→17:22)
[2021-01-16 05:11] LABS: Basophils # 0.1 10*3/uL (0.0-0.2); Basophils % 0.4 % (0.0-0.8); Eosinophils # 0.1 10*3/uL (0.0-0.87); Eosinophils % 0.5 % (0.00-10.9); Hematocrit 31.6 VOL% (42.0-52.0); Hemoglobin 9.2 GM/DL (14.0-18.0); Immature Granulocytes Absolute 0.92 #; Lymphocytes # 1.5 10*3/uL (1.4-4.0); Lymphocytes % 12.7 % (21.2-54.2); Mean Corpuscular HGB Conc 29.1 GM/DL (32-36); Mean Corpuscular Volume 87.3 FL (87-102); Mean Platelet Volume 10.9 FL (9.6-12.0); Monocytes % 6.8 % (1.7-12.7); Neutrophils % 71.6 % (38.7-73.9); Platelet Count 192 T/CUMM (130-400); Red Blood Count 3.62 MC/CUMM (3.8-5.5); Red Cell Distribution Width 19.9 % (9.3-17.3); White Blood Count 11.5 T/CUMM (4-12)
[2021-01-16 05:37] LABS: Band Neutrophils 3 % (0-10); Lymphocytes 14 % (20-55); Metamyelocytes 4 %; Platelet Estimate Normal; Segmented Neutrophils 71 % (50-85); Total Cells Counted 100
[2021-01-16 05:38] LABS: Anisocytosis 1+; Ovalocytes Few; Tear Drop Cells Few
[2021-01-16 05:39] LABS: Calcium 8.7 MG/DL (8.5-10.1); Osmolality,Calculated 292.4 MOS/KG (273-304); Potassium 3.1 MMOL/L (3.5-5.1)
[2021-01-16] MEDS: ACETAMINOPHEN 325 MG TABLET PO PRN ×3 (05:56→22:18)
[2021-01-16] MEDS: PANTOPRAZOLE 40 MG TABLET PO SCH (05:56)
[2021-01-16] MEDS: carvediloL 12.5 MG TABLET PO SCH ×2 (09:44→22:13)
[2021-01-16] MEDS: predniSONE 20 MG TABLET PO SCH (09:44)
[2021-01-16] MEDS: DESITIN 4OZ/NYSTATIN 15 GRAM MIXTURE PASTE TOP SCH ×2 (09:45→22:17)
[2021-01-16] MEDS: SODIUM HYPOCHLORITE 0.25% IRRIG 473 ML BOTTLE TOP SCH (09:45)
[2021-01-16] MEDS: GABAPENTIN 300 MG CAPSULE PO SCH ×3 (09:45→22:12)
[2021-01-16 15:10] LABS: Gentamicin,Trough 1.4 UG/ML (<2); Vancomycin,Trough 22.3 UG/ML (10.0-20.0)
[2021-01-16] MEDS: DEXTROSE 5% NACL 0.45% 1,000 ML IV SCH (17:52)
[2021-01-16] MEDS: ENOXAPARIN 40 MG/0.4 ML SYRINGE SUBCUT SCH (22:13)
[2021-01-17] MEDS: VANCOMYCIN INJ 1,250 MG in SODIUM CHLORIDE 0.9% 250 ML IV SCH (03:37)
[2021-01-17 05:21] LABS: Basophils # 0.1 10*3/uL (0.0-0.2); Basophils % 0.4 % (0.0-0.8); Eosinophils # 0.1 10*3/uL (0.0-0.87); Eosinophils % 0.6 % (0.00-10.9); Hematocrit 31.3 VOL% (42.0-52.0); Hemoglobin 9.2 GM/DL (14.0-18.0); Immature Granulocytes % 8.8 %; Immature Granulocytes Absolute 1.03 #; Lymphocytes # 1.5 10*3/uL (1.4-4.0); Lymphocytes % 12.5 % (21.2-54.2); Mean Corpuscular HGB Conc 29.4 GM/DL (32-36); Mean Corpuscular Volume 86.7 FL (87-102); Monocytes % 7.9 % (1.7-12.7); Neutrophils % 69.8 % (38.7-73.9); Platelet Count 171 T/CUMM (130-400); Red Blood Count 3.61 MC/CUMM (3.8-5.5); Red Cell Distribution Width 19.7 % (9.3-17.3); White Blood Count 11.7 T/CUMM (4-12)
[2021-01-17 05:50] LABS: Calcium 8.5 MG/DL (8.5-10.1); Osmolality,Calculated 289.6 MOS/KG (273-304); Potassium 3.2 MMOL/L (3.5-5.1)
[2021-01-17 05:53] LABS: Band Neutrophils 1 % (0-10); Hypochromasia Slight; Lymphocytes 12 % (20-55); Nucleated Red Blood Cells 1 (0-5); Platelet Estimate Normal; Segmented Neutrophils 82 % (50-85); Total Cells Counted 100
[2021-01-17] MEDS: GENTAMICIN INJ 80 MG/50 ML PREMIX IV SCH (06:23)
[2021-01-17] MEDS: PANTOPRAZOLE 40 MG TABLET PO SCH (06:27)
[2021-01-17] MEDS: ALBUTEROL/IPRATROPIUM 3 ML NEB RESP TX SCH ×3 (07:40→19:46)
[2021-01-17] MEDS: POTASSIUM CHLORIDE 20 MEQ TABLET PO PRN ×4 (07:43→14:45)
[2021-01-17] MEDS: DEXTROSE 5% NACL 0.45% 1,000 ML IV SCH (09:40)
[2021-01-17] MEDS: carvediloL 12.5 MG TABLET PO SCH ×2 (09:55→20:55)
[2021-01-17] MEDS: GABAPENTIN 300 MG CAPSULE PO SCH ×3 (09:55→20:55)
[2021-01-17] MEDS: predniSONE 20 MG TABLET PO SCH (09:55)
[2021-01-17] MEDS: ACETAMINOPHEN 325 MG TABLET PO PRN ×2 (09:55→20:54)
[2021-01-17] MEDS: SODIUM HYPOCHLORITE 0.25% IRRIG 473 ML BOTTLE TOP SCH (09:56)
[2021-01-17] MEDS: DESITIN 4OZ/NYSTATIN 15 GRAM MIXTURE PASTE TOP SCH ×2 (09:58→21:01)
[2021-01-17] MEDS: ENOXAPARIN 40 MG/0.4 ML SYRINGE SUBCUT SCH (20:54)
[2021-01-17] MEDS: GENTAMICIN INJ 120 MG/100 ML PREMIX IV SCH (21:02)
[2021-01-18] MEDS: DEXTROSE 5% NACL 0.45% 1,000 ML IV SCH ×2 (00:07→14:22)
[2021-01-18] MEDS: ALBUTEROL/IPRATROPIUM 3 ML NEB RESP TX SCH ×5 (00:42→23:58)
[2021-01-18] MEDS: VANCOMYCIN INJ 1,250 MG in SODIUM CHLORIDE 0.9% 250 ML IV SCH (03:14)
[2021-01-18 05:55] LABS: Basophils # 0.1 10*3/uL (0.0-0.2); Basophils % 0.8 % (0.0-0.8); Eosinophils # 0.1 10*3/uL (0.0-0.87); Eosinophils % 0.7 % (0.00-10.9); Hematocrit 30.9 VOL% (42.0-52.0); Hemoglobin 9.2 GM/DL (14.0-18.0); Immature Granulocytes % 11.4 %; Immature Granulocytes Absolute 1.67 #; Lymphocytes # 1.7 10*3/uL (1.4-4.0); Lymphocytes % 11.7 % (21.2-54.2); Mean Corpuscular HGB Conc 29.8 GM/DL (32-36); Mean Corpuscular Volume 86.6 FL (87-102); Mean Platelet Volume 10.6 FL (9.6-12.0); Monocytes % 8.1 % (1.7-12.7); Neutrophils % 67.3 % (38.7-73.9); Platelet Count 151 T/CUMM (130-400); Red Blood Count 3.57 MC/CUMM (3.8-5.5); Red Cell Distribution Width 19.9 % (9.3-17.3); White Blood Count 14.6 T/CUMM (4-12)
[2021-01-18] MEDS: PANTOPRAZOLE 40 MG TABLET PO SCH (06:11)
[2021-01-18 06:21] LABS: Band Neutrophils 1 % (0-10); Eosinophils 1 % (0-10); Hypochromasia 1+; Lymphocytes 11 % (20-55); Microcytosis 1+; Ovalocytes Slight; Platelet Estimate Adequate; Segmented Neutrophils 83 % (50-85); Total Cells Counted 100
[2021-01-18 06:22] LABS: Calcium 8.5 MG/DL (8.5-10.1); Potassium 3.5 MMOL/L (3.5-5.1)
[2021-01-18] MEDS: GABAPENTIN 300 MG CAPSULE PO SCH ×3 (09:29→22:00)
[2021-01-18] MEDS: predniSONE 20 MG TABLET PO SCH (09:29)
[2021-01-18] MEDS: carvediloL 12.5 MG TABLET PO SCH ×2 (09:29→22:01)
[2021-01-18] MEDS: DESITIN 4OZ/NYSTATIN 15 GRAM MIXTURE PASTE TOP SCH ×2 (09:30→22:06)
[2021-01-18] MEDS: SODIUM HYPOCHLORITE 0.25% IRRIG 473 ML BOTTLE TOP SCH (09:30)
[2021-01-18] MEDS: ACETAMINOPHEN 325 MG TABLET PO PRN ×2 (11:00→22:03)
[2021-01-18] MEDS: GENTAMICIN INJ 120 MG/100 ML PREMIX IV SCH (21:57)
[2021-01-18] MEDS: ENOXAPARIN 40 MG/0.4 ML SYRINGE SUBCUT SCH (22:00)
[2021-01-19] MEDS: DEXTROSE 5% NACL 0.45% 1,000 ML IV SCH (04:31)
[2021-01-19] MEDS: VANCOMYCIN INJ 1,250 MG in SODIUM CHLORIDE 0.9% 250 ML IV SCH (05:26)
[2021-01-19 05:37] LABS: Basophils # 0.1 10*3/uL (0.0-0.2); Basophils % 0.7 % (0.0-0.8); Eosinophils # 0.1 10*3/uL (0.0-0.87); Eosinophils % 0.8 % (0.00-10.9); Hematocrit 31.6 VOL% (42.0-52.0); Hemoglobin 9.4 GM/DL (14.0-18.0); Immature Granulocytes % 12.4 %; Immature Granulocytes Absolute 1.78 #; Lymphocytes # 1.9 10*3/uL (1.4-4.0); Lymphocytes % 13.1 % (21.2-54.2); Mean Corpuscular HGB Conc 29.7 GM/DL (32-36); Mean Corpuscular Volume 86.3 FL (87-102); Mean Platelet Volume 10.9 FL (9.6-12.0); Monocytes % 7.6 % (1.7-12.7); Neutrophils % 65.4 % (38.7-73.9); Platelet Count 146 T/CUMM (130-400); Red Blood Count 3.66 MC/CUMM (3.8-5.5); Red Cell Distribution Width 20.2 % (9.3-17.3); White Blood Count 14.3 T/CUMM (4-12)
[2021-01-19 06:03] LABS: Band Neutrophils 4 % (0-10); Eosinophils 1 % (0-10); Lymphocytes 14 % (20-55); Myelocytes 1 %; Segmented Neutrophils 75 % (50-85); Total Cells Counted 100
[2021-01-19 06:04] LABS: Platelet Estimate Normal
[2021-01-19 06:33] LABS: Calcium 8.7 MG/DL (8.5-10.1); Osmolality,Calculated 290.4 MOS/KG (273-304); Potassium 3.5 MMOL/L (3.5-5.1)
[2021-01-19] MEDS: PANTOPRAZOLE 40 MG TABLET PO SCH (06:34)
[2021-01-19] MEDS: ALBUTEROL/IPRATROPIUM 3 ML NEB RESP TX SCH ×2 (07:40→13:43)
[2021-01-19] MEDS: ACETAMINOPHEN 325 MG TABLET PO PRN (09:01)
[2021-01-19] MEDS: GABAPENTIN 300 MG CAPSULE PO SCH ×2 (09:01→16:42)
[2021-01-19] MEDS: predniSONE 20 MG TABLET PO SCH (09:01)
[2021-01-19] MEDS: carvediloL 12.5 MG TABLET PO SCH (09:01)
[2021-01-19] MEDS: DESITIN 4OZ/NYSTATIN 15 GRAM MIXTURE PASTE TOP SCH (09:03)
[2021-01-19] MEDS: SODIUM HYPOCHLORITE 0.25% IRRIG 473 ML BOTTLE TOP SCH (09:03)
[2021-01-19] MEDS: GENTAMICIN INJ 120 MG/100 ML PREMIX IV SCH (15:17)
[2021-01-19 16:07] VITALS: BP 156/76
== END 2021-01-19 17:00 | disposition home or self-care (01) | DRG 870 ==
LOC: EDBD → EDUNIT# → N.ED 17:19 → SUATTDRO 21:30 → N.EDINP 21:30 → N.ICU 22:13 → N.5E 01-01 17:44
PROVIDERS: ADMIT Family Medicine; ATTEND Internal Medicine